=== PATIENT | female | born 1935 | race Caucasian/White ===

== ENCOUNTER 2019-04-17 08:33 | Inpatient (IN) | payer MEDICARE ==
[~2019-04-17] VITALS: Ht 160 cm; Wt 74.6 kg
[~2019-04-17 08:33] MED LIST: AMLO10TA8 PO; ASPI81TA59 PO; GLIM1TAB3 PO; HYDR-2145 PO
--- NOTE | 2019-04-17 09:13 | EKG ---
[facility] [address] [place] [address] Test Date: 2019-04-17 Test Time: 08:57:23 Pat Name: MICHEAL MCCRARY Department: Room: Gender: F Desk Monitor: : 1935 Requested By: YANET ALVAREZ Order Number: [id number] Reading MD: Measurements Intervals [place] Rate: 102 P: MT: QRS: -19 QRSD: 74 T: 71 QT: 332 QTc: 436 Interpretive Statements ATRIAL FLUTTER LEFTWARD AXIS QRS(T) CONTOUR ABNORMALITY CONSIDER ANTEROSEPTAL INFARCT CONSISTENT WITH INFERIOR INFARCT PROBABLY OLD T ABNORMALITY IN HIGH LATERAL LEADS ABNORMAL ECG No previous ECG available for comparison
[2019-04-17] MEDS ORDERED: IV NORMAL SALINE 1000ML BAG 1,000 ML IV ONE ×2 (09:15)
[2019-04-17 09:26] LABS: BILIRUBIN,URINE SMALL (NEG); CLARITY,URINE TURBID; COLOR,URINE AMBER; NITRITE,URINE NEGATIVE (NEG); PROTEIN,URINE 30 mg/dL (NEG-TRACE); UROBILINOGEN,URINE 0.2 mg/dL (0.2 mg/dL)
[2019-04-17 09:33] LABS: BASO % 0 % (0-3); EOS # 0.4 x10^3/uL (0.0-0.7); EOS % 3 % (0-3); HEMOGLOBIN 15.1 g/dL (12.0-15.5); LYMPH # 0.3 x10^3/uL (1.0-4.8); LYMPH % 2 % (24-48); MEAN CORPUSCULAR HEMOGLOBIN 31 pg (25-35); MEAN CORPUSCULAR HGB CONC 34 g/dL (31-37); MEAN CORPUSCULAR VOLUME 89 fL (79-100); MONO % 6 % (0-9); NEUT # 14.3 x10^3/uL (1.8-7.7); NEUT % 89 % (31-73); PLATELET COUNT 146 x10^3/uL (140-400); RED BLOOD COUNT 4.94 x10^6/uL (3.50-5.40); RED CELL DISTRIBUTION WIDTH 14.4 % (11.5-14.5)
[2019-04-17 09:40] LABS: BACTERIA,URINE MANY /HPF (0-FEW); SQUAMOUS EPITHELIAL CELL,UR FEW /LPF; WBC,URINE >40 /HPF (0-4)
[2019-04-17 09:43] LABS: PROTHROMBIN TIME PATIENT 14.1 SEC (11.7-14.0)
[2019-04-17] MEDS ORDERED: INSULIN REGULAR 100 UNIT/ML 3ML VIAL. IV ONE (09:45)
[2019-04-17 09:51] LABS: BASE EXCESS ABG 1 mmol/L (-3-3); HCO3 ABG 25 mmol/L (21-28); PCO2 ABG 41 mmHg (35-46); PO2 ABG 89 mmHg (65-108); SAT O2 ABG 96 % (92-99)
[2019-04-17 09:51] LABS: % BANDS 4 % (0-9); % LYMPHS 4 % (24-48); % MONOS 5 % (0-10); % SEGS 87 % (35-66)
[2019-04-17 09:52] LABS: ANISOCYTOSIS SLIGHT; PLT ESTIMATE ADEQUATE (ADEQUATE); POLYCHROMASIA SLIGHT
--- NOTE | 2019-04-17 09:52 | RAD ---
PORTABLE CHEST 1V Clinical indications: Nausea and vomiting and confusion COMPARISON: November 22, 2013. Findings: There is elevation of the right hemidiaphragm. No acute lung infiltrate or pleural effusion or pulmonary edema or lung mass or pneumothorax is seen. The heart size, pulmonary vasculature, mediastinum and both karsten are unremarkable. Impression: Elevation of the right hemidiaphragm. No acute lung infiltrate. No abnormal dilatation of small bowel loops or colon is seen within the upper abdomen. Electronically signed by: Kade Marie MD (04/17/2019 9:49 AM) [facility]
[2019-04-17 09:55] LABS: FIO2 ABG 28
[2019-04-17 10:03] LABS: ALBUMIN 2.3 g/dL (3.4-5.0); ALBUMIN/GLOBULIN RATIO 0.5 (1.0-1.7); CALCIUM 9.2 mg/dL (8.5-10.1); GFR 23.8; MAGNESIUM 2.3 mg/dL (1.8-2.4); POTASSIUM 4.1 mmol/L (3.5-5.1); TOTAL BILIRUBIN 8.1 mg/dL (0.2-1.0); TOTAL PROTEIN 6.8 g/dL (6.4-8.2)
[2019-04-17] MEDS ORDERED: cefTRIAXone IV Push 1 GM VIAL. IVP ONE (10:30)
[2019-04-17] MEDS ORDERED: VANCOMYCIN 1GM IVPB FOR OMNI 250 ML IV ONE (10:30)
--- NOTE | 2019-04-17 10:37 | PHYS DOC ---
Past Medical History Past Medical History: Diabetes-Type II, Hypertension, UTI, Other Additional Past Medical Histor: SEPSIS Past Surgical History: No Surgical History Alcohol Use: None Drug Use: None Adult General Chief Complaint Chief Complaint: NAUSEA/VOMITING/DIARRHA HPI HPI Patient is a 83 year old male patient with history of hypertension, diabetes previous episodes of sepsis and UTI who presents with complaining of nausea and vomiting and weakness. She complaining of 2- 3 episodes of vomiting daily for the last 4 days with generalized weakness . Patient denies abdominal pain, diarrhea, urinary symptoms, fever and chills, itching, chest pain and shortness of breath. Patient complaining of unable to eat or take her medication. Review of Systems Review of Systems Constitutional: Denies fever or chills [] Eyes: Denies change in visual acuity, redness, or eye pain [] HENT: Denies nasal congestion or sore throat [] Respiratory: Denies cough or shortness of breath [] Cardiovascular: No additional information not addressed in HPI [] GI: Denies abdominal pain, bloody stools or diarrhea , reports nausea and vomiting[] : Denies dysuria or hematuria [] Musculoskeletal: Denies back pain or joint pain [] Integument: Denies rash or skin lesions [] Neurologic: Denies headache, focal weakness or sensory changes [] Endocrine: Denies polyuria or polydipsia [] All other systems were reviewed and found to be within normal limits, except as documented in this note. Current Medications Current Medications Current Medications Medications (Trade) Dose Ordered Sig/Almaz Start Time Stop Time Status Last Admin Dose Admin Ceftriaxone Sodium (Rocephin) 1 gm 1X ONCE 04/17/19 10:30 04/17/19 11:04 DC 04/17/19 11:09 1 GM Insulin Human Regular (HumuLIN R VIAL) 10 unit 1X ONCE 04/17/19 09:45 04/17/19 09:46 DC 04/17/19 09:47 10 UNIT Sodium Chloride 1,000 ml @ 1,000 mls/hr 1X ONCE 04/17/19 09:15 04/17/19 10:14 DC 04/17/19 09:35 1,000 MLS/HR Vancomycin HCl 250 ml @ 250 mls/hr 1X ONCE 04/17/19 10:30 04/17/19 11:29 DC 04/17/19 11:10 250 MLS/HR Allergies Allergies Allergies Coded Allergies Type Severity Reaction Last Updated Verified Penicillins Allergy Intermediate 04/17/19 Yes Physical Exam Physical Exam Constitutional: Moderate distress, non-toxic appearance. [] HENT: Normocephalic, atraumatic, bilateral external ears normal, oropharynx dry.] Eyes: PERRLA, EOMI, conjunctiva normal, no discharge, jaundice. [] Neck: Normal range of motion, no tenderness, supple, no stridor. [] Cardiovascular:Heart rate regular rhythm, no murmur [] Lungs & Thorax: Bilateral breath sounds clear to auscultation [] Abdomen: Bowel sounds normal, soft, no tenderness, no masses, no pulsatile m asses. [] Skin: Warm, dry, no erythema, no rash. [] Back: No tenderness, no CVA tenderness. [] Extremities: No tenderness, no cyanosis, no clubbing, ROM intact, no edema. [] Neurologic: Alert and oriented X 3, normal motor function, normal sensory function, no focal deficits noted. [] Psychologic: Affect normal, mood normal. [] Current Patient Data Vital Signs Vital Signs Date Time Temp Pulse Resp B/P (MAP) Pulse Ox O2 Delivery O2 Flow Rate FiO2 04/17/19 10:24 86 145/52 (83) 99 Nasal Cannula 2.0 04/17/19 08:54 22 04/17/19 08:50 97.4 97.4 Lab Values Laboratory Tests Test 04/17/19 09:06 04/17/19 09:20 04/17/19 09:25 04/17/19 09:31 Urine Collection Type U cath Urine Color Sarah Urine Clarity Turbid Urine pH 5.0 Urine Specific [place] 1.020 Urine Protein 30 mg/dL (NEG-TRACE) Urine Glucose (UA) >=1000 mg/dL (NEG) Urine Ketones (Stick) Trace mg/dL (NEG) Urine Blood Moderate (NEG) Urine Nitrite Negative (NEG) Urine Bilirubin Small (NEG) Urine Urobilinogen Dipstick 0.2 mg/dL (0.2 mg/dL) Urine Leukocyte Esterase Large (NEG) Urine RBC 6-10 /HPF (0-2) Urine WBC >40 /HPF (0-4) Urine Squamous Epithelial Cells Few /LPF Urine Bacteria Many /HPF (0-FEW) Lactic Acid Level 2.9 mmol/L (0.4-2.0) H Phosphorus Level 3.4 mg/dL (2.6-4.7) Acetone Level Neg (NEG) White Blood Count 16.0 x10^3/uL (4.0-11.0) H Red Blood Count 4.94 x10^6/uL (3.50-5.40) Hemoglobin 15.1 g/dL (12.0-15.5) Hematocrit 44.0 % (36.0-47.0) Mean Corpuscular Volume 89 fL (79-100) Mean Corpuscular Hemoglobin 31 pg (25-35) Mean Corpuscular Hemoglobin Concent 34 g/dL (31-37) Red Cell Distribution Width 14.4 % (11.5-14.5) Platelet Count 146 x10^3/uL (140-400) Neutrophils (%) (Auto) 89 % (31-73) H Lymphocytes (%) (Auto) 2 % (24-48) L Monocytes (%) (Auto) 6 % (0-9) Eosinophils (%) (Auto) 3 % (0-3) Basophils (%) (Auto) 0 % (0-3) Neutrophils # (Auto) 14.3 x10^3/uL (1.8-7.7) H Lymphocytes # (Auto) 0.3 x10^3/uL (1.0-4.8) L Monocytes # (Auto) 1.0 x10^3/uL (0.0-1.1) Eosinophils # (Auto) 0.4 x10^3/uL (0.0-0.7) Basophils # (Auto) 0.0 x10^3/uL (0.0-0.2) Segmented Neutrophils % 87 % (35-66) H Band Neutrophils % 4 % (0-9) Lymphocytes % 4 % (24-48) L Monocytes % 5 % (0-10) Platelet Estimate Adequate (ADEQUATE) Polychromasia Slight Anisocytosis Slight Prothrombin Time 14.1 SEC (11.7-14.0) H Prothrombin Time INR 1.1 (0.8-1.1) Activated Partial Thromboplast Time 26 SEC (24-38) Sodium Level 123 mmol/L (136-145) L Potassium Level 4.1 mmol/L (3.5-5.1) Chloride Level 84 mmol/L (98-107) L Carbon Dioxide Level 25 mmol/L (21-32) Anion Gap 14 (6-14) Blood Urea Nitrogen 65 mg/dL (7-20) H Creatinine 2.0 mg/dL (0.6-1.0) H Estimated GFR (Cockcroft-Gault) 23.8 BUN/Creatinine Ratio 33 (6-20) H Glucose Level 538 mg/dL (70-99) *H Calcium Level 9.2 mg/dL (8.5-10.1) Magnesium Level 2.3 mg/dL (1.8-2.4) Total Bilirubin 8.1 mg/dL (0.2-1.0) H Aspartate Amino Transferase (AST) 51 U/L (15-37) H Alanine Aminotransferase (ALT) 126 U/L (14-59) H Alkaline Phosphatase 290 U/L (46-116) H Creatine Kinase 43 U/L (26-192) Troponin I Quantitative < 0.017 ng/mL (0.000-0.055) UL-Pfd-Z-Type Natriuretic Peptide 1881 pg/mL (0-449) H Total Protein 6.8 g/dL (6.4-8.2) Albumin 2.3 g/dL (3.4-5.0) L Albumin/Globulin Ratio 0.5 (1.0-1.7) L Lipase 96 U/L (73-393) Glucose (Fingerstick) 534 mg/dL (70-99) *H Test 04/17/19 09:34 O2 Saturation 96 % (92-99) Arterial Blood pH 7.41 (7.35-7.45) Arterial Blood pCO2 at Patient Temp 41 mmHg (35-46) Arterial Blood pO2 at Patient Temp 89 mmHg (65-108) Arterial Blood HCO3 25 mmol/L (21-28) Arterial Blood Base Excess 1 mmol/L (-3-3) FiO2 28 Laboratory Tests 04/17/19 09:25 Laboratory Tests 04/17/19 09:25 EKG EKG EKG interpreted by me. EKG at 0857 showed atrial flutter at rate of 102, PVCs, poor R-wave progress in anteroseptal leads, no acute ST and T-wave elevation. Radiology/Procedures Radiology/Procedures [][facility] [address] [place] [address] IMAGING REPORT Signed PATIENT: MICHEAL MCCRARY ACCOUNT: [id number] : 1935 LOCATION: ER AGE: 83 SEX: F EXAM STATUS: REG ER ORD. PHYSICIAN: YANET ALVAREZ MD REASON: nausea and vomiting and confusion PROCEDURE: PORTABLE CHEST 1V PORTABLE CHEST 1V Clinical indications: Nausea and vomiting and confusion COMPARISON: November 22, 2013. Findings: There is elevation of the right hemidiaphragm. No acute lung infiltrate or pleural effusion or pulmonary edema or lung mass or pneumothorax is seen. The heart size, pulmonary vasculature, mediastinum and both karsten are unremarkable. Impression: Elevation of the right hemidiaphragm. No acute lung infiltrate. No abnormal dilatation of small bowel loops or colon is seen within the upper abdomen. Electronically signed by: Danuta Marie MD (04/17/2019 9:49 AM) [facility] DICTATED and SIGNED BY: DANUTA MARIE MD DATE: 04/17/19 0949 [facility] [address] [place] [address] IMAGING REPORT Signed PATIENT: MICHEAL MCCRARY ACCOUNT: [id number] : 1935 LOCATION: ER AGE: 83 SEX: F EXAM STATUS: REG ER ORD. PHYSICIAN: YANET ALVAREZ MD REASON: jaundice PROCEDURE: CT ABDOMEN PELVIS WO CONTRAST CT STUDY OF THE ABDOMEN AND PELVIS WITHOUT CONTRAST CLINICAL INDICATIONS: Nausea and vomiting and diarrhea for 5 days. Jaundice. TECHNIQUE: Noncontrast helical CT scanning of the abdomen and pelvis was performed. Without contrast, the sensitivity to detect organ pathology and GI tract pathology is decreased. PQRS compliance Statement One or more of the following individualized dose reduction techniques were utilized for this study: 1. Automated exposure control 2. Adjustment of the mA and/or kV according to patient size 3. Use of iterative reconstruction technique COMPARISON: None available. FINDINGS: The liver and spleen are not abnormally enlarged. There is a subcentimeter indeterminate hypodense nodule within the dome of the right lobe liver best seen on coronal series #4 and image 42. No peripancreatic inflammation or free fluid or pseudocyst is evident. Without contrast, the evaluation of the pancreatic parenchyma is difficult. There is focal enlargement of the anterior aspect of the neck of the pancreas. There is no dilatation of the extra hepatic biliary duct. The gallbladder is mildly distended measuring 8 cm. There is mild increase in the fat around the gallbladder. This could represent pericholecystic inflammation. No gallbladder wall thickening is evident. No adrenal mass is evident. No hydronephrosis or hydroureter or urinary tract stone is evident. No renal mass is seen on either side on this noncontrast study. No focal aneurysmal dilatation of the abdominal aorta is seen. No enlarged abdominal or pelvic lymphadenopathy is evident. Urinary bladder wall is smooth. There is a small bubble of air within the urinary bladder. No uterine mass is evident. No dominant ovarian cyst or mass is evident. The terminal ileum and appendix are normal. No obstructive bowel pattern is evident. No bowel wall thickening is seen. Sigmoid diverticula are seen without pericolonic inflammation. No free air or free fluid or mesenteric edema is evident. Bibasilar groundglass lung infiltrates are seen. Heart size is enlarged. There is a mild compression fracture of L5. Transitional vertebrae is evident below the L5 level. No lytic process is seen. IMPRESSION: There is focal enlargement of the neck of the pancreas. This area is ill-defined lung this noncontrast study. It measures approximately 23 mm in AP dimension and 22 mm in transverse dimension. This could represent a small pancreatic neoplasm or focal pancreatic inflammation secondary to pancreatitis. No extra hepatic biliary ductal dilatation is seen. Mild distention of the gallbladder. Mild pericholecystic inflammation. Recommend right upper quadrant abdomen ultrasound study. Bibasilar groundglass lung infiltrates which may be due to pulmonary edema or atelectasis. Mild cardiomegaly. In addition, there is focal consolidation of the medial posterior aspect of the right lower lobe. There is associated pleural thickening here. Lung infiltrate such as pneumonia is certainly possible. Mild L5 compression fracture of indeterminate age. Indeterminate subcentimeter liver nodule. Sigmoid diverticulosis without diverticulitis. Small bubble of air seen within the urinary bladder which most likely is due to the short female urethra or recent catheterization. No urinary bladder wall thickening. Electronically signed by: Danuta Marie MD (04/17/2019 11:37 AM) [facility] DICTATED and SIGNED BY: DANUTA MARIE MD DATE: 04/17/19 1136 Course & Med Decision Making Course & Med Decision Making Pertinent Labs and Imaging studies reviewed. (See chart for details) Initial patient in ER showed a test 83-year-old male patient brought in by family members because of nausea and vomiting and generalized weakness. Patient had blood sugar of more than 500 with dry oral mucosa and treated with IV fluids and insulin bolus and drip. Patient had elevation of lactic acid and treated for sepsis protocol. Patient had her insufficiency and elevated liver function tests with bilirubin of [address] of abdomen showed abnormal pancreas area. Patient and family informed about test results and needs for admission. Patient requiring admission for further evaluation and treatment. Discussed with Dr. Fontenot (per request of primary care physician family member) who is in agreement with admission. Discussed findings and plan with patient and family, who acknowledge understanding and agreement. Dragon Disclaimer Dragon Disclaimer This electronic medical record was generated, in whole or in part, using a voice recognition dictation system. Departure Departure Impression: Primary Impression: Sepsis Additional Impressions: Urinary tract infection Hyperglycemia Uncontrolled diabetes mellitus Jaundice Renal insufficiency Elevated liver function tests Nausea and vomiting Hypoalbuminemia Abnormal CT of the abdomen Atrial fibrillation Disposition: ADMITTED INPATIENT Admitting Physician: Alex Fontenot Condition: GUARDED Referrals: ELIANE CHOPRA MD (PCP) Critical Care Time Critical care time was 70 minutes exclusive of procedures. Date and Time of Reassessment Date: Apr 17, 2019 Time: 10:00 Fluid Challenge Is the fluid challenge complet: No IBW Target Volume Used: No BMI > 30: No Vital Signs Vital Signs: Vital Signs Date Time Temp Pulse Resp B/P (MAP) Pulse Ox O2 Delivery O2 Flow Rate FiO2 04/17/19 10:24 86 145/52 (83) 99 Nasal Cannula 2.0 04/17/19 08:54 22 04/17/19 08:50 97.4 97.4 Temperature Source: Oral Respirations Respiratory Effort: Normal, Non-Labored Respiratory Pattern: Normal Cardiovascular Pulse Rhythm: Regular Heart: Nml S1, S2, no murmurs, No rubs, clicks or gallop Lung Sounds Breath Sounds: Clear Capillary Refil Capillary Refill: Rt Hand < 3 seconds Peripheral Pulse Pulse Location: Radial Pulse Strength: Normal (2+) Pulse Assessment Method: NIBP Problem Qualifiers Primary Impression: Sepsis Sepsis type: sepsis due to unspecified organism Sepsis acute organ dysfunction status: unspecified Qualified Codes: A41.9 - Sepsis, unspecified organism Additional Impressions: Urinary tract infection Urinary tract infection type: site unspecified Hematuria presence: without hematuria Qualified Codes: N39.0 - Urinary tract infection, site not specified Uncontrolled diabetes mellitus Diabetes mellitus type: other specified (including NICOLE) Glycemic state: with hyperglycemia Qualified Codes: E13.65 - Other specified diabetes mellitus with hyperglycemia Nausea and vomiting Vomiting type: unspecified Vomiting Intractability: non-intractable Qualified Codes: R11.2 - Nausea with vomiting, unspecified Atrial fibrillation Atrial fibrillation type: unspecified Qualified Codes: I48.91 - Unspecified atrial fibrillation YANET ALVAREZ MD Apr 17, 2019 10:37
[2019-04-17] MEDS ORDERED: ONDANSETRON PF 4 MG/2 ML VIAL. IV PRN (11:30)
[2019-04-17] MEDS: IV NORMAL SALINE 1000ML BAG 1,000 ML IV SCH (11:36)
--- NOTE | 2019-04-17 11:39 | RAD ---
CT STUDY OF THE ABDOMEN AND PELVIS WITHOUT CONTRAST CLINICAL INDICATIONS: Nausea and vomiting and diarrhea for 5 days. Jaundice. TECHNIQUE: Noncontrast helical CT scanning of the abdomen and pelvis was performed. Without contrast, the sensitivity to detect organ pathology and GI tract pathology is decreased. PQRS compliance Statement One or more of the following individualized dose reduction techniques were utilized for this study: 1. Automated exposure control 2. Adjustment of the mA and/or kV according to patient size 3. Use of iterative reconstruction technique COMPARISON: None available. FINDINGS: The liver and spleen are not abnormally enlarged. There is a subcentimeter indeterminate hypodense nodule within the dome of the right lobe liver best seen on coronal series #4 and image 42. No peripancreatic inflammation or free fluid or pseudocyst is evident. Without contrast, the evaluation of the pancreatic parenchyma is difficult. There is focal enlargement of the anterior aspect of the neck of the pancreas. There is no dilatation of the extra hepatic biliary duct. The gallbladder is mildly distended measuring 8 cm. There is mild increase in the fat around the gallbladder. This could represent pericholecystic inflammation. No gallbladder wall thickening is evident. No adrenal mass is evident. No hydronephrosis or hydroureter or urinary tract stone is evident. No renal mass is seen on either side on this noncontrast study. No focal aneurysmal dilatation of the abdominal aorta is seen. No enlarged abdominal or pelvic lymphadenopathy is evident. Urinary bladder wall is smooth. There is a small bubble of air within the urinary bladder. No uterine mass is evident. No dominant ovarian cyst or mass is evident. The terminal ileum and appendix are normal. No obstructive bowel pattern is evident. No bowel wall thickening is seen. Sigmoid diverticula are seen without pericolonic inflammation. No free air or free fluid or mesenteric edema is evident. Bibasilar groundglass lung infiltrates are seen. Heart size is enlarged. There is a mild compression fracture of L5. Transitional vertebrae is evident below the L5 level. No lytic process is seen. IMPRESSION: There is focal enlargement of the neck of the pancreas. This area is ill-defined lung this noncontrast study. It measures approximately 23 mm in AP dimension and 22 mm in transverse dimension. This could represent a small pancreatic neoplasm or focal pancreatic inflammation secondary to pancreatitis. No extra hepatic biliary ductal dilatation is seen. Mild distention of the gallbladder. Mild pericholecystic inflammation. Recommend right upper quadrant abdomen ultrasound study. Bibasilar groundglass lung infiltrates which may be due to pulmonary edema or atelectasis. Mild cardiomegaly. In addition, there is focal consolidation of the medial posterior aspect of the right lower lobe. There is associated pleural thickening here. Lung infiltrate such as pneumonia is certainly possible. Mild L5 compression fracture of indeterminate age. Indeterminate subcentimeter liver nodule. Sigmoid diverticulosis without diverticulitis. Small bubble of air seen within the urinary bladder which most likely is due to the short female urethra or recent catheterization. No urinary bladder wall thickening. Electronically signed by: Kade Marie MD (04/17/2019 11:37 AM) [facility]
[2019-04-17 12:30] VITALS: BP 153/64
--- NOTE | 2019-04-17 13:04 | NUR ---
The patient, MICHEAL MCCRARY, 83 y/o, F admitted by VOLODYMYR HESS MD, was given written information regarding hospital policies, unit procedures and contact persons. Son at bedside at time of admit, pt stable. Physician contacted for further orders. Awaiting return call.
[2019-04-17] MEDS ORDERED: DEXTROSE 50% 25 GM / 50ML DISP.SYRIN. IV PRN (13:15)
[2019-04-17 15:00] VITALS: BP 139/61
--- NOTE | 2019-04-17 15:07 | NUR ---
Wound Care: Wound consult for buttocks PU. Stage 1 PU on buttocks/coccyx, cleansed and measured, Calazime cream applied. [id number] order for pt. No other wounds noted on skin assessment. SOPHIE Romero notified of POC. Wound care will follow up on 04/24.
--- NOTE | 2019-04-17 15:46 | PDOC2 ---
GI CONSULT Reason For Consult: Black tarry emesis HPI: HPI: 83 y/o female who has been ill w/ vomiting for a few days. Denies precipitating events, "just sick." D/w nurse - family found this morning w/ "black" emesis all over - similar symptoms w/ past sepsis/UTI. She's unaware of color of emesis. Labs notable for WBC 16, normal Hgb, glucose 543, bili 8.1, AST 51, ALT 126, Alk Phos 296, BUN 65, Cr 2, BNP 1881, and possible UTI. GI-[place] on CT report: focal enlargement of the neck of the pancreas, no extra hepatic biliary ductal dilatation is seen, mild distention of the gallbladder w/ mild pericholecystic inflammation, indeterminate subcentimeter liver nodule, and sigmoid diverticulosis. Denies GERD, dysphagia, chronic n/v, abd pain, diarrhea, constipation, weight loss, hematochezia, or melena. No previous EGD or colonoscopy. Denies liver, pancreas, GB, and PUD history. ASA PRN. PMH: PMH: dementia, HTN, DM, UTI/sepsis FH: Family History: No pertinent hx Social History: Smoke: No ALCOHOL: none Drugs: None ROS: GEN: Denies fevers, chills, sweats HEENT: Denies blurred vision, sore throat CV: Denies chest pain RESP: Denies shortness of air, cough GI: Per HPI : Denies hematuria, dysuria ENDO: Denies weight changes NEURO: Denies confusion, dizziness MSK: Denies weakness, joint pain/swelling SKIN: Denies jaundice, pruritus Vitals: Vitals: Vital Signs Date Time Temp Pulse Resp B/P (MAP) Pulse Ox O2 Delivery O2 Flow Rate FiO2 04/17/19 14:02 Nasal Cannula 2.0 04/17/19 12:23 86 19 106/55 (72) 97 04/17/19 08:50 97.4 97.4 Labs: Labs: Laboratory Tests Test 04/17/19 09:06 04/17/19 09:20 04/17/19 09:25 04/17/19 09:31 Urine Collection Type U cath Urine Color Sarah Urine Clarity Turbid Urine pH 5.0 Urine Specific [place] 1.020 Urine Protein 30 mg/dL (NEG-TRACE) Urine Glucose (UA) >=1000 mg/dL (NEG) Urine Ketones (Stick) Trace mg/dL (NEG) Urine Blood Moderate (NEG) Urine Nitrite Negative (NEG) Urine Bilirubin Small (NEG) Urine Urobilinogen Dipstick 0.2 mg/dL (0.2 mg/dL) Urine Leukocyte Esterase Large (NEG) Urine RBC 6-10 /HPF (0-2) Urine WBC >40 /HPF (0-4) Urine Squamous Epithelial Cells Few /LPF Urine Bacteria Many /HPF (0-FEW) Lactic Acid Level 2.9 mmol/L (0.4-2.0) Phosphorus Level 3.4 mg/dL (2.6-4.7) Acetone Level Neg (NEG) White Blood Count 16.0 x10^3/uL (4.0-11.0) Red Blood Count 4.94 x10^6/uL (3.50-5.40) Hemoglobin 15.1 g/dL (12.0-15.5) Hematocrit 44.0 % (36.0-47.0) Mean Corpuscular Volume 89 fL (79-100) Mean Corpuscular Hemoglobin 31 pg (25-35) Mean Corpuscular Hemoglobin Concent 34 g/dL (31-37) Red Cell Distribution Width 14.4 % (11.5-14.5) Platelet Count 146 x10^3/uL (140-400) Neutrophils (%) (Auto) 89 % (31-73) Lymphocytes (%) (Auto) 2 % (24-48) Monocytes (%) (Auto) 6 % (0-9) Eosinophils (%) (Auto) 3 % (0-3) Basophils (%) (Auto) 0 % (0-3) Neutrophils # (Auto) 14.3 x10^3/uL (1.8-7.7) Lymphocytes # (Auto) 0.3 x10^3/uL (1.0-4.8) Monocytes # (Auto) 1.0 x10^3/uL (0.0-1.1) Eosinophils # (Auto) 0.4 x10^3/uL (0.0-0.7) Basophils # (Auto) 0.0 x10^3/uL (0.0-0.2) Segmented Neutrophils % 87 % (35-66) Band Neutrophils % 4 % (0-9) Lymphocytes % 4 % (24-48) Monocytes % 5 % (0-10) Platelet Estimate Adequate (ADEQUATE) Polychromasia Slight Anisocytosis Slight Prothrombin Time 14.1 SEC (11.7-14.0) Prothromb Time International Ratio 1.1 (0.8-1.1) Activated Partial Thromboplast Time 26 SEC (24-38) Sodium Level 123 mmol/L (136-145) Potassium Level 4.1 mmol/L (3.5-5.1) Chloride Level 84 mmol/L (98-107) Carbon Dioxide Level 25 mmol/L (21-32) Anion Gap 14 (6-14) Blood Urea Nitrogen 65 mg/dL (7-20) Creatinine 2.0 mg/dL (0.6-1.0) Estimated GFR (Cockcroft-Gault) 23.8 BUN/Creatinine Ratio 33 (6-20) Glucose Level 538 mg/dL (70-99) Calcium Level 9.2 mg/dL (8.5-10.1) Magnesium Level 2.3 mg/dL (1.8-2.4) Total Bilirubin 8.1 mg/dL (0.2-1.0) Aspartate Amino Transf (AST/SGOT) 51 U/L (15-37) Alanine Aminotransferase (ALT/SGPT) 126 U/L (14-59) Alkaline Phosphatase 290 U/L (46-116) Creatine Kinase 43 U/L (26-192) Troponin I Quantitative < 0.017 ng/mL (0.000-0.055) KS-Swf-U-Type Natriuretic Peptide 1881 pg/mL (0-449) Total Protein 6.8 g/dL (6.4-8.2) Albumin 2.3 g/dL (3.4-5.0) Albumin/Globulin Ratio 0.5 (1.0-1.7) Lipase 96 U/L (73-393) Glucose (Fingerstick) 534 mg/dL (70-99) Test 04/17/19 09:34 04/17/19 10:56 04/17/19 12:45 O2 Saturation 96 % (92-99) Arterial Blood pH 7.41 (7.35-7.45) Arterial Blood pCO2 at Patient Temp 41 mmHg (35-46) Arterial Blood pO2 at Patient Temp 89 mmHg (65-108) Arterial Blood HCO3 25 mmol/L (21-28) Arterial Blood Base Excess 1 mmol/L (-3-3) FiO2 28 Glucose (Fingerstick) 381 mg/dL (70-99) Lactic Acid Level 1.5 mmol/L (0.4-2.0) Ammonia < 10 mcmol/L (11-34) Allergies: Coded Allergies: Penicillins (Verified Allergy, Intermediate, 04/17/19) Medications: Current Medications Medications (Trade) Dose Ordered Sig/Almaz Route PRN Reason Start Time Stop Time Status Last Admin Dose Admin Sodium Chloride 1,000 ml @ 1,000 mls/hr 1X ONCE IV 04/17/19 09:15 04/17/19 10:14 DC 04/17/19 09:35 Sodium Chloride 1,000 ml @ 1,000 mls/hr 1X ONCE IV 04/17/19 09:15 04/17/19 10:14 DC 04/17/19 09:35 Insulin Human Regular (HumuLIN R VIAL) 10 unit 1X ONCE IV 04/17/19 09:45 04/17/19 09:46 DC 04/17/19 09:47 Ceftriaxone Sodium (Rocephin) 1 gm 1X ONCE IVP 04/17/19 10:30 04/17/19 11:04 DC 04/17/19 11:09 Vancomycin HCl 250 ml @ 250 mls/hr 1X ONCE IV 04/17/19 10:30 04/17/19 11:29 DC 04/17/19 11:10 Sodium Chloride 1,000 ml @ 150 mls/hr Q6H40M IV 04/17/19 11:27 04/18/19 11:26 04/17/19 11:36 Imaging: Imaging: CXR Impression: Elevation of the right hemidiaphragm. No acute lung infiltrate. No abnormal dilatation of small bowel loops or colon is seen within the upper abdomen. CT A/P IMPRESSION: There is focal enlargement of the neck of the pancreas. This area is ill-defined lung this noncontrast study. It measures approximately 23 mm in AP dimension and 22 mm in transverse dimension. This could represent a small pancreatic neoplasm or focal pancreatic inflammation secondary to pancreatitis. No extra hepatic biliary ductal dilatation is seen. Mild distention of the gallbladder. Mild pericholecystic inflammation. Recommend right upper quadrant abdomen ultrasound study. Bibasilar groundglass lung infiltrates which may be due to pulmonary edema or atelectasis. Mild cardiomegaly. In addition, there is focal consolidation of the medial posterior aspect of the right lower lobe. There is associated pleural thickening here. Lung infiltrate such as pneumonia is certainly possible. Mild L5 compression fracture of indeterminate age. Indeterminate subcentimeter liver nodule. Sigmoid diverticulosis without diverticulitis. Small bubble of air seen within the urinary bladder which most likely is due to the short female urethra or recent catheterization. No urinary bladder wall thickening. PE: GEN: NAD HEENT: Atraumatic, PERRL LUNGS: NC 2L HEART: RRR ABD: NABS, S/ND/NT EXTREMITY: No edema SKIN: +jaundice NEURO/PSYCH: A & O 3 A/P: A/P: Vomiting/"coffee-ground emesis" Leukocytosis, hyperglycemia, abnormal LFTs, ?RYAN/CKD, elevated BNP, possible UTI Abnormal CT - focal enlargement of the neck of the pancreas, mild distention of the gallbladder w/ mild pericholecystic inflammation, indeterminate subcentimeter liver nodule CRC screen - denies Diverticulosis H/o dementia -- Monitor as far as vomiting goes, will add PPI. Will discuss NPO vs trial of clears w/ Dr. Astorga. Check RUQ US re: CT findings. Monitor LFTs. JENNIFER DORANTES Apr 17, 2019 15:46
[2019-04-17] MEDS ORDERED: LISI10TA2 PO (17:31)
[2019-04-17] MEDS: INSULIN LISPRO 300 UNITS/3 ML VIAL. SQ SCH (17:36)
[2019-04-17 19:01] VITALS: BP 148/63
--- NOTE | 2019-04-17 20:37 | RAD ---
ABDOMEN LTD History: Elevated LFTs. Liver nodule. Distended gallbladder. Comparison: CT April 17, 2019.. Technique: Transabdominal ultrasound images are obtained of the right upper quadrant. Findings: Visualized pancreas is is not well seen due to overlying bowel gas. Difficult evaluation of the liver due to bowel gas and patient's inability to hold breath and decreased motion. Previously described subcentimeter liver lesion is not well characterized on ultrasound. The liver measures 14 cm. No gallbladder wall thickening measures 3 mm. No cholelithiasis. Mildly distended gallbladder. Common bile duct measures 2.1 mm in diameter. The right kidney measures 10.1 x 4.9 x 5.7 cm in length. No hydronephrosis. Right renal cyst measures 1.7 x 1.8 x 1.9 cm. Aorta and IVC not well seen due to overlying bowel gas. IMPRESSION: 1. Mildly distended gallbladder. No significant gallbladder wall thickening. Persistent clinical concern for right upper quadrant pain HIDA scan can further evaluate gallbladder function. 2. Degraded evaluation of the liver and pancreas, as described. Electronically signed by: Angel Yip DO (04/17/2019 8:34 PM) [facility]
[2019-04-17 22:36] VITALS: BP 91/53
--- NOTE | 2019-04-17 23:03 | CONS ---
DATE OF CONSULTATION: 04/17/2019 REFERRING PHYSICIAN: Dr. Welch REASON FOR CONSULTATION: UTI. HISTORY OF PRESENT ILLNESS: An 83-year-old female with history of diabetes type 2, who has not been taking her medications for the last couple of months, hypertension, history of UTI with bloodstream infection a year ago at which time she was admitted to [facility], none since, presented to the ER this a.m. with complaints of nausea, vomiting, diarrhea, abdominal pain, low appetite, generalized weakness, which started last Sunday. The patient has been in her normal health, though has not been very active at home. She does have some abdominal pain, which radiates to the back. She has vomiting with coffee ground emesis Pt is not a good historian. Son at bedside provided most of the information. She was brought to the ER by her son as she was not improving at home. In the ER, her temperature was 97.4, white count was 16,000, hemoglobin of 15.1, platelets of 146, bands of 4, creatinine was elevated at 2.0, CK of 43, proBNP of 1881, lipase of 96, glucose was high at 534. UA showed pyuria, glycosuria. Sodium of 123, AST 51, ALT 126, alkaline phosphatase 290, total bili 8.1, calcium 9.2, INR of 1.1. Chest x-ray showed elevation of the right hemidiaphragm, no acute lung infiltrate. No abnormal dilatation of the small bowel loops or colon is seen within the upper abdomen. CT abdomen and chest showed focal enlargement of the neck of the pancreas; this area is ill-defined with a noncontrast study. It measures approximately 23 mm in AP dimension and 22 mm in transverse dimension. This could represent a small pancreatic neoplasm or focal pancreatic inflammation secondary to pancreatitis. No extrahepatic biliary ductal dilatation is seen. Mild distention of the gallbladder, mild pericholecystic inflammation. Recommend upper quadrant abdomen ultrasound study, bibasilar ground-glass infiltrates, which could be due to pulmonary edema or atelectasis, mild cardiomegaly. In addition, there is focal consolidation of the medial, posterior aspect of the right lower lobe. There is associated pleural thickening here lung infiltrate such as pneumonia is certainly possible, mild L5 compression fracture of indeterminate age, indeterminate subcentimeter liver nodule, sigmoid diverticulosis without diverticulitis, small bubble of air seen within the urinary bladder, which is most likely due to short female urethral recent catheterization. No urinary bladder wall thickening. Micro, blood culture and urine culture done. 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 Leukocytosis. 2. Pyuria. The patient does not have any urinary symptoms. 3. Abnormal LFTs with Abnormal CT focal enlargement of the neck of the pancreas, mild distention of the gallbladder w/ mild pericholecystic inflammation, indeterminate subcentimeter liver nodule 4. Acute kidney injury. 5. Hyponatremia. 6. Nausea, vomiting, coffee ground emesis, diarrhea 7. Uncontrolled diabetes mellitus.Off medications 8. Pulmonary infiltrate, 9.. High proBNP. 10. Protein-calorie malnutrition. 11. Lactic acidosis. 12. PENICILLIN ALLERGY WITH NAUSEA, VOMITING. Does not recall taking Augmentin or amoxicillin. 13. H/O Dementia RECOMMENDATIONS: 1. Discontinue IV vancomycin and ceftriaxone. 2. Start the patient on empiric cefepime. 3. Follow up blood culture and urine culture. 4. GI is consulted. 5. Follow up labs and cultures. 6. Continue supportive care. 7. Maintain aspiration precaution. 8. Continue supportive care. 9. Discussed with son at bedside. 10. Discussed with nursing staff. Thank you, Dr. Fontenot for consulting Infectious Disease to participate in this patient's care. We will follow along with you. If you have any questions, do not hesitate to contact. AGUILAR TERRY MD DR: ABRIL/crystal JOB#: [id number] / [id number] MARCIA
[2019-04-18] MEDS: IV NORMAL SALINE 1000ML BAG 1,000 ML IV SCH ×3 (01:26→14:33)
[2019-04-18 03:27] VITALS: BP 128/60
[2019-04-18 04:32] LABS: ALBUMIN 1.6 g/dL (3.4-5.0); ALBUMIN/GLOBULIN RATIO 0.4 (1.0-1.7); CALCIUM 8.1 mg/dL (8.5-10.1); CREATININE 1.5 mg/dL (0.6-1.0); GFR 33.2; POTASSIUM 3.6 mmol/L (3.5-5.1); TOTAL BILIRUBIN 7.2 mg/dL (0.2-1.0); TOTAL PROTEIN 5.3 g/dL (6.4-8.2)
[2019-04-18 07:07] VITALS: BP 153/66
[2019-04-18] MEDS ORDERED: PANTOPRAZOLE IV PUSH 40 MG VIAL. IVP SCH (07:30)
[2019-04-18 07:56] LABS: HEMATOCRIT 39.5 % (36.0-47.0); HEMOGLOBIN 13.4 g/dL (12.0-15.5); RED BLOOD COUNT 4.43 x10^6/uL (3.50-5.40); RED CELL DISTRIBUTION WIDTH 14.9 % (11.5-14.5); WHITE BLOOD COUNT 9.9 x10^3/uL (4.0-11.0)
--- NOTE | 2019-04-18 08:55 | PDOC ---
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 no gen rash Medications: Inpatient Meds: Current Medications Medications (Trade) Dose Ordered Sig/Almaz Start Time Stop Time Status Last Admin Dose Admin Acetaminophen (Tylenol) 650 mg PRN Q6HRS PRN 04/17/19 13:15 Cefepime HCl (Maxipime) 1 gm DAILY 04/18/19 09:00 Ceftriaxone Sodium (Rocephin) 1 gm 1X ONCE 04/17/19 10:30 04/17/19 11:04 DC 04/17/19 11:09 1 GM Dextrose (Dextrose 50%-Water Syringe) 12.5 gm PRN Q15MIN PRN 04/17/19 13:15 Insulin Human Lispro (HumaLOG) 0-7 UNITS TIDWMEALS 04/17/19 17:00 04/17/19 17:36 4 UNITS Insulin Human Regular (HumuLIN R VIAL) 10 unit 1X ONCE 04/17/19 09:45 04/17/19 09:46 DC 04/17/19 09:47 10 UNIT Ondansetron HCl (Zofran) 4 mg PRN Q8HRS PRN 04/17/19 11:30 04/17/19 18:00 DC Pantoprazole Sodium (PROTONIX VIAL for IV PUSH) 40 mg DAILYAC 04/18/19 07:30 Sodium Chloride 1,000 ml @ 150 mls/hr Q6H40M 04/17/19 11:27 04/18/19 11:26 04/18/19 01:26 150 MLS/HR Vancomycin HCl 250 ml @ 250 mls/hr 1X ONCE 04/17/19 10:30 04/17/19 11:29 DC 04/17/19 11:10 250 MLS/HR Labs: Lab Laboratory Tests Test 04/17/19 09:06 04/17/19 09:20 04/17/19 09:25 04/17/19 09:31 Urine Collection Type U cath Urine Color Sarah Urine Clarity Turbid Urine pH 5.0 Urine Specific [place] 1.020 Urine Protein 30 mg/dL (NEG-TRACE) Urine Glucose (UA) >=1000 mg/dL (NEG) Urine Ketones (Stick) Trace mg/dL (NEG) Urine Blood Moderate (NEG) Urine Nitrite Negative (NEG) Urine Bilirubin Small (NEG) Urine Urobilinogen Dipstick 0.2 mg/dL (0.2 mg/dL) Urine Leukocyte Esterase Large (NEG) Urine RBC 6-10 /HPF (0-2) Urine WBC >40 /HPF (0-4) Urine Squamous Epithelial Cells Few /LPF Urine Bacteria Many /HPF (0-FEW) Lactic Acid Level 2.9 mmol/L (0.4-2.0) Phosphorus Level 3.4 mg/dL (2.6-4.7) Acetone Level Neg (NEG) White Blood Count 16.0 x10^3/uL (4.0-11.0) Red Blood Count 4.94 x10^6/uL (3.50-5.40) Hemoglobin 15.1 g/dL (12.0-15.5) Hematocrit 44.0 % (36.0-47.0) Mean Corpuscular Volume 89 fL (79-100) Mean Corpuscular Hemoglobin 31 pg (25-35) Mean Corpuscular Hemoglobin Concent 34 g/dL (31-37) Red Cell Distribution Width 14.4 % (11.5-14.5) Platelet Count 146 x10^3/uL (140-400) Neutrophils (%) (Auto) 89 % (31-73) Lymphocytes (%) (Auto) 2 % (24-48) Monocytes (%) (Auto) 6 % (0-9) Eosinophils (%) (Auto) 3 % (0-3) Basophils (%) (Auto) 0 % (0-3) Neutrophils # (Auto) 14.3 x10^3/uL (1.8-7.7) Lymphocytes # (Auto) 0.3 x10^3/uL (1.0-4.8) Monocytes # (Auto) 1.0 x10^3/uL (0.0-1.1) Eosinophils # (Auto) 0.4 x10^3/uL (0.0-0.7) Basophils # (Auto) 0.0 x10^3/uL (0.0-0.2) Segmented Neutrophils % 87 % (35-66) Band Neutrophils % 4 % (0-9) Lymphocytes % 4 % (24-48) Monocytes % 5 % (0-10) Platelet Estimate Adequate (ADEQUATE) Polychromasia Slight Anisocytosis Slight Prothrombin Time 14.1 SEC (11.7-14.0) Prothromb Time International Ratio 1.1 (0.8-1.1) Activated Partial Thromboplast Time 26 SEC (24-38) Sodium Level 123 mmol/L (136-145) Potassium Level 4.1 mmol/L (3.5-5.1) Chloride Level 84 mmol/L (98-107) Carbon Dioxide Level 25 mmol/L (21-32) Anion Gap 14 (6-14) Blood Urea Nitrogen 65 mg/dL (7-20) Creatinine 2.0 mg/dL (0.6-1.0) Estimated GFR (Cockcroft-Gault) 23.8 BUN/Creatinine Ratio 33 (6-20) Glucose Level 538 mg/dL (70-99) Calcium Level 9.2 mg/dL (8.5-10.1) Magnesium Level 2.3 mg/dL (1.8-2.4) Total Bilirubin 8.1 mg/dL (0.2-1.0) Aspartate Amino Transf (AST/SGOT) 51 U/L (15-37) Alanine Aminotransferase (ALT/SGPT) 126 U/L (14-59) Alkaline Phosphatase 290 U/L (46-116) Creatine Kinase 43 U/L (26-192) Troponin I Quantitative < 0.017 ng/mL (0.000-0.055) CD-Rin-P-Type Natriuretic Peptide 1881 pg/mL (0-449) Total Protein 6.8 g/dL (6.4-8.2) Albumin 2.3 g/dL (3.4-5.0) Albumin/Globulin Ratio 0.5 (1.0-1.7) Lipase 96 U/L (73-393) Glucose (Fingerstick) 534 mg/dL (70-99) Test 04/17/19 09:34 04/17/19 10:56 04/17/19 12:45 04/17/19 16:50 O2 Saturation 96 % (92-99) Arterial Blood pH 7.41 (7.35-7.45) Arterial Blood pCO2 at Patient Temp 41 mmHg (35-46) Arterial Blood pO2 at Patient Temp 89 mmHg (65-108) Arterial Blood HCO3 25 mmol/L (21-28) Arterial Blood Base Excess 1 mmol/L (-3-3) FiO2 28 Glucose (Fingerstick) 381 mg/dL (70-99) 253 mg/dL (70-99) Lactic Acid Level 1.5 mmol/L (0.4-2.0) Ammonia < 10 mcmol/L (11-34) Test 04/17/19 21:06 04/17/19 23:33 04/18/19 03:30 04/18/19 07:11 Glucose (Fingerstick) 217 mg/dL (70-99) 256 mg/dL (70-99) 242 mg/dL (70-99) Sodium Level 131 mmol/L (136-145) Potassium Level 3.6 mmol/L (3.5-5.1) Chloride Level 99 mmol/L (98-107) Carbon Dioxide Level 22 mmol/L (21-32) Anion Gap 10 (6-14) Blood Urea Nitrogen 61 mg/dL (7-20) Creatinine 1.5 mg/dL (0.6-1.0) Estimated GFR (Cockcroft-Gault) 33.2 BUN/Creatinine Ratio 41 (6-20) Glucose Level 288 mg/dL (70-99) Calcium Level 8.1 mg/dL (8.5-10.1) Total Bilirubin 7.2 mg/dL (0.2-1.0) Aspartate Amino Transf (AST/SGOT) 38 U/L (15-37) Alanine Aminotransferase (ALT/SGPT) 67 U/L (14-59) Alkaline Phosphatase 257 U/L (46-116) Total Protein 5.3 g/dL (6.4-8.2) Albumin 1.6 g/dL (3.4-5.0) Albumin/Globulin Ratio 0.4 (1.0-1.7) Test 04/18/19 07:40 White Blood Count 9.9 x10^3/uL (4.0-11.0) Red Blood Count 4.43 x10^6/uL (3.50-5.40) Hemoglobin 13.4 g/dL (12.0-15.5) Hematocrit 39.5 % (36.0-47.0) Mean Corpuscular Volume 89 fL (79-100) Mean Corpuscular Hemoglobin 30 pg (25-35) Mean Corpuscular Hemoglobin Concent 34 g/dL (31-37) Red Cell Distribution Width 14.9 % (11.5-14.5) Platelet Count 95 x10^3/uL (140-400) Objective: Assessment: 1. Leukocytosis. 2. Pyuria. The patient does not have any urinary symptoms. 3. Nausea, vomiting, coffee ground emesis, Abdominal pain radiating to back Abnormal LFTs with Abnormal CT focal enlargement of the neck of the pancre as, mild distention of the gallbladder with mild veronica-cholecystic inflammation, 4. Acute kidney injury. 5. Hyponatremia. 6. diarrhea resolved 7. Uncontrolled diabetes mellitus.Off medications 8. Pulmonary infiltrate, 9.. High proBNP. 10. Protein-calorie malnutrition. 11. Lactic acidosis. 12. PENICILLIN ALLERGY WITH NAUSEA, VOMITING. Does not recall taking Augmentin or amoxicillin. 13. H/O Dementia Plan: Plan of Care cont cefepime. Follow up blood culture and urine culture. GI following Maintain aspiration precaution. Continue supportive care. Discussed with nursing staff. AGUILAR TERRY MD Apr 18, 2019 08:55
[2019-04-18] MEDS ORDERED: CEFEPIME HCL IV Push 1 GM VIAL. IVP SCH (09:00)
[2019-04-18] MEDS: INSULIN LISPRO 300 UNITS/3 ML VIAL. SQ SCH ×3 (09:04→17:57)
--- NOTE | 2019-04-18 09:10 | HP ---
ADMIT DATE: 04/17/2019 CHIEF COMPLAINT AND HISTORY OF PRESENT ILLNESS: This 83-year-old white female, patient of Dr. Xiong who was admitted through the Emergency Room with several days of nausea and vomiting and progressive weakness. She was felt to be septic from urinary tract source and admitted to the hospital for the same through the Emergency Room. PAST MEDICAL HISTORY: Remarkable for prior sepsis, diabetes, hypertension, prior UTIs. Per Dr. Xiong, the patient has not been taking any diabetic medicines for some time and has had good blood sugars despite the same. MEDICATIONS: Brought with the patient, listed on computer and have been addressed. ALLERGIES: SHE IS ALLERGIC TO PENICILLIN. SOCIAL HISTORY: Noncontributory. FAMILY HISTORY: Noncontributory. REVIEW OF SYSTEMS: Remarkable for the weakness, the nausea and vomiting. She denies any hematochezia, melena, or hematemesis. She denies any dysuria, hematuria, frequency, urgency leading up to this. PHYSICAL EXAMINATION: GENERAL: She is well-developed, well-nourished female who appears ill. VITAL SIGNS: Stable and she is afebrile since admission. HEAD, EYES, EARS, NOSE AND THROAT: Remarkable for some dryness of mucous membranes. NECK: Supple, without lymphadenopathy or thyromegaly. CHEST: Clear to auscultation and percussion. HEART: Regular rate and rhythm without S3, S4 or murmur. ABDOMEN: Without hepatosplenomegaly, masses, tenderness, rebound, etc. She has no CVA tenderness. EXTREMITIES: Without cyanosis, clubbing or edema. NEUROLOGIC: She is intact. LABORATORY DATA: Initial laboratory includes a white count of 16,000 with a left shift. Initial blood sugars 538. Sodium is low at 123. BUN and creatinine are elevated at 65 and 2 consistent with acute kidney injury. Liver function tests were quite elevated with a bilirubin of 8.1, AST of 51, ALT of 126 and alkaline phosphatase of 290. BNP is high at 1881. Initial imaging includes a chest x-ray that shows an elevation of right hemidiaphragm and abdomen and pelvis CT with question of fullness at the neck of the pancreas. It was felt to be ill-defined, measuring approximately 23 mm in AP dimension and 22 in transverse dimension, felt to be a possibly small pancreatic neoplasm or focal pancreatic inflammation secondary to pancreatitis. No extrahepatic biliary ductal dilatation is noted. There is mild distention of the gallbladder and mild pericholecystic inflammation. There is mild cardiomegaly and focal consolidation in the medial posterior aspect of the right lower lobe with some associated pleural thickening in the area. She has mild L5 compression fracture of indeterminate age. Sigmoid diverticulosis without diverticulitis, small bubble of air in the urinary bladder, most likely from catheterization. IMPRESSION: Sepsis, acute kidney injury, hyperglycemia, diabetes, urinary tract infection, jaundice, elevated liver function tests, nausea, vomiting, abnormal CT of the abdomen. PLAN: The patient has been admitted. GI and ID are following. She is on broad-spectrum antibiotics and feeling better this morning. Bilirubin is down somewhat. White count is coming down and hopefully this is all septic related. She will likely need further imaging of the pancreas prior to the time of discharge to define this area more fully. VOLODYMYR HESS MD DR: RAF/crystal JOB#: [id number] / [id number] ELIANE Grissom MD
[2019-04-18 10:39] VITALS: BP 147/65
--- NOTE | 2019-04-18 11:45 | NUR ---
SS following for discharge planning. SS reviewed pt chart. Pt is from home and is currently requiring oxygen. SS will continue to follow for discharge planning.
[2019-04-18] MEDS ORDERED: CEFEPIME HCL IV Push 1 GM VIAL. IVP ONE (12:00)
--- NOTE | 2019-04-18 12:26 | PDOC2 ---
CONSULT Date of Consult Date of Consult DATE: 04/18/19 TIME: 12:20 Reason for Consult Reason for Consult: RYAN Identification/Chief Complaint Chief Complaint States feeling fine Source Source: Chart review History of Present Illness Reason for Visit: Hx mostly obtained from chart review, Pt is poor historian and very hard of hearing -- She is 83-year-old CF with history of DM 2 has not been taking her medications for the last couple of months, hypertension, history of UTI with bloodstream infection a year ago and she was admitted to [facility] Presented to ER with N/V/D/ abdominal pain, low appetite,generalized weakness, which started last Sunday. She does have some abdominal pain, which radiates to the back. She has vomiting with coffee ground emesis Social History No ALCOHOL: none Drugs: None Current Problem List Problem List Problems Medical Problems: (1) Abnormal CT of the abdomen Status: Acute (2) Atrial fibrillation Status: Acute (3) Elevated liver function tests Status: Acute (4) Hyperglycemia Status: Acute (5) Hypoalbuminemia Status: Acute (6) Jaundice Status: Acute (7) Nausea and vomiting Status: Acute (8) Renal insufficiency Status: Acute (9) Sepsis Status: Acute (10) Uncontrolled diabetes mellitus Status: Acute (11) Urinary tract infection Status: Acute Current Medications Current Medications Current Medications Sodium Chloride 1,000 ml @ 1,000 mls/hr 1X ONCE IV Last administered on 04/17/19at 09:35; Start 04/17/19 at 09:15; Stop 04/17/19 at 10:14; Status DC Sodium Chloride 1,000 ml @ 1,000 mls/hr 1X ONCE IV Last administered on 04/17/19at 09:35; Start 04/17/19 at 09:15; Stop 04/17/19 at 10:14; Status DC Insulin Human Regular (HumuLIN R VIAL) 10 unit 1X ONCE IV Last administered on 04/17/19at 09:47; Start 04/17/19 at 09:45; Stop 04/17/19 at 09:46; Status DC Ceftriaxone Sodium (Rocephin) 1 gm 1X ONCE IVP Last administered on 04/17/19at 11:09; Start 04/17/19 at 10:30; Stop 04/17/19 at 11:04; Status DC Vancomycin HCl 250 ml @ 250 mls/hr 1X ONCE IV Last administered on 04/17/19at 11:10; Start 04/17/19 at 10:30; Stop 04/17/19 at 11:29; Status DC Ondansetron HCl (Zofran) 4 mg PRN Q8HRS PRN IV NAUSEA/VOMITING; Start 04/17/19 at 11:30; Stop 04/17/19 at 18:00; Status DC Sodium Chloride 1,000 ml @ 150 mls/hr Q6H40M IV Last administered on 04/18/19at 01:26; Start 04/17/19 at 11:27; Stop 04/18/19 at 11:26; Status DC Insulin Human Lispro (HumaLOG) 0-7 UNITS TIDWMEALS SQ Last administered on 04/18/19at 11:35; Start 04/17/19 at 17:00 Dextrose (Dextrose 50%-Water Syringe) 12.5 gm PRN Q15MIN PRN IV SEE COMMENTS; Start 04/17/19 at 13:15 Acetaminophen (Tylenol) 650 mg PRN Q6HRS PRN PO pain ; Start 04/17/19 at 13:15 Cefepime HCl (Maxipime) 1 gm DAILY IVP Last administered on 04/18/19at 08:56; Start 04/18/19 at 09:00; Stop 04/18/19 at 11:04; Status DC Pantoprazole Sodium (PROTONIX VIAL for IV PUSH) 40 mg DAILYAC IVP Last administered on 04/18/19at 08:56; Start 04/18/19 at 07:30 Cefepime HCl (Maxipime) 1 gm 1X ONCE IVP Last administered on 04/18/19at 11:30; Start 04/18/19 at 12:00; Stop 04/18/19 at 12:01; Status DC Cefepime HCl (Maxipime) 2 gm Q24H IVP ; Start 04/19/19 at 09:00 Active Scripts Active Reported Lisinopril 10 Mg Tablet 1 Tab PO DAILY Amlodipine Besylate 10 Mg Tablet 10 Mg PO DAILY Allergies Allergies: Coded Allergies: Penicillins (Verified Allergy, Intermediate, 04/17/19) ROS Review of System Per HPI Physical Exam Physical Exam Gen NAD Heent no icterus Neck supple Lungs dec bs at bases Heart s1s2 abdo soft bs+ mildly distended, Ext no edema BAKER SECOND grossly normal Skin No rash Vital Signs Vital Signs Date Time Temp Pulse Resp B/P (MAP) Pulse Ox O2 Delivery O2 Flow Rate FiO2 04/18/19 10:39 98.0 85 20 147/65 (92) 97 Nasal Cannula 2.0 98.0 Assessment & Plan RYAN- Pr-renal 2/2 Vomiting Bicarb /L stable, UA pyuria , Imaging- kidneys unremarkable No intetval kabs available since 2013 (cr normal) in [facility] records or from PCP Supportive care, Strict I/O, Avoid nephrotoxins, Monitor , daily BMP HypoNa - Improving with IVF Pyuria -? UTI, asymptomatic Vomiting/"coffee-ground emesis- GI following Hgb normal abnormal LFTs, Focal enlargement of the neck of the pancreas, mild distention of the gallbladder w/ mild pericholecystic inflammation, indeterminate subcentimeter liver nodule Per GI H/o dementia Labs Labs Laboratory Tests Test 04/17/19 09:06 04/17/19 09:20 04/17/19 09:25 04/17/19 09:31 Urine Collection Type U cath Urine Color Sarah Urine Clarity Turbid Urine pH 5.0 Urine Specific [place] 1.020 Urine Protein 30 mg/dL (NEG-TRACE) Urine Glucose (UA) >=1000 mg/dL (NEG) Urine Ketones (Stick) Trace mg/dL (NEG) Urine Blood Moderate (NEG) Urine Nitrite Negative (NEG) Urine Bilirubin Small (NEG) Urine Urobilinogen Dipstick 0.2 mg/dL (0.2 mg/dL) Urine Leukocyte Esterase Large (NEG) Urine RBC 6-10 /HPF (0-2) Urine WBC >40 /HPF (0-4) Urine Squamous Epithelial Cells Few /LPF Urine Bacteria Many /HPF (0-FEW) Lactic Acid Level 2.9 mmol/L (0.4-2.0) Phosphorus Level 3.4 mg/dL (2.6-4.7) Acetone Level Neg (NEG) White Blood Count 16.0 x10^3/uL (4.0-11.0) Red Blood Count 4.94 x10^6/uL (3.50-5.40) Hemoglobin 15.1 g/dL (12.0-15.5) Hematocrit 44.0 % (36.0-47.0) Mean Corpuscular Volume 89 fL (79-100) Mean Corpuscular Hemoglobin 31 pg (25-35) Mean Corpuscular Hemoglobin Concent 34 g/dL (31-37) Red Cell Distribution Width 14.4 % (11.5-14.5) Platelet Count 146 x10^3/uL (140-400) Neutrophils (%) (Auto) 89 % (31-73) Lymphocytes (%) (Auto) 2 % (24-48) Monocytes (%) (Auto) 6 % (0-9) Eosinophils (%) (Auto) 3 % (0-3) Basophils (%) (Auto) 0 % (0-3) Neutrophils # (Auto) 14.3 x10^3/uL (1.8-7.7) Lymphocytes # (Auto) 0.3 x10^3/uL (1.0-4.8) Monocytes # (Auto) 1.0 x10^3/uL (0.0-1.1) Eosinophils # (Auto) 0.4 x10^3/uL (0.0-0.7) Basophils # (Auto) 0.0 x10^3/uL (0.0-0.2) Segmented Neutrophils % 87 % (35-66) Band Neutrophils % 4 % (0-9) Lymphocytes % 4 % (24-48) Monocytes % 5 % (0-10) Platelet Estimate Adequate (ADEQUATE) Polychromasia Slight Anisocytosis Slight Prothrombin Time 14.1 SEC (11.7-14.0) Prothromb Time International Ratio 1.1 (0.8-1.1) Activated Partial Thromboplast Time 26 SEC (24-38) Sodium Level 123 mmol/L (136-145) Potassium Level 4.1 mmol/L (3.5-5.1) Chloride Level 84 mmol/L (98-107) Carbon Dioxide Level 25 mmol/L (21-32) Anion Gap 14 (6-14) Blood Urea Nitrogen 65 mg/dL (7-20) Creatinine 2.0 mg/dL (0.6-1.0) Estimated GFR (Cockcroft-Gault) 23.8 BUN/Creatinine Ratio 33 (6-20) Glucose Level 538 mg/dL (70-99) Calcium Level 9.2 mg/dL (8.5-10.1) Magnesium Level 2.3 mg/dL (1.8-2.4) Total Bilirubin 8.1 mg/dL (0.2-1.0) Aspartate Amino Transf (AST/SGOT) 51 U/L (15-37) Alanine Aminotransferase (ALT/SGPT) 126 U/L (14-59) Alkaline Phosphatase 290 U/L (46-116) Creatine Kinase 43 U/L (26-192) Troponin I Quantitative < 0.017 ng/mL (0.000-0.055) [id number]-Kmq-[id number]-Type Natriuretic Peptide 1881 pg/mL (0-449) Total Protein 6.8 g/dL (6.4-8.2) Albumin 2.3 g/dL (3.4-5.0) Albumin/Globulin Ratio 0.5 (1.0-1.7) Lipase 96 U/L (73-393) Glucose (Fingerstick) 534 mg/dL (70-99) Test 04/17/19 09:34 04/17/19 10:56 04/17/19 12:45 04/17/19 16:50 O2 Saturation 96 % (92-99) Arterial Blood pH 7.41 (7.35-7.45) Arterial Blood pCO2 at Patient Temp 41 mmHg (35-46) Arterial Blood pO2 at Patient Temp 89 mmHg (65-108) Arterial Blood HCO3 25 mmol/L (21-28) Arterial Blood Base Excess 1 mmol/L (-3-3) FiO2 28 Glucose (Fingerstick) 381 mg/dL (70-99) 253 mg/dL (70-99) Lactic Acid Level 1.5 mmol/L (0.4-2.0) Ammonia < 10 mcmol/L (11-34) Test 04/17/19 21:06 04/17/19 23:33 04/18/19 03:30 04/18/19 07:11 Glucose (Fingerstick) 217 mg/dL (70-99) 256 mg/dL (70-99) 242 mg/dL (70-99) Sodium Level 131 mmol/L (136-145) Potassium Level 3.6 mmol/L (3.5-5.1) Chloride Level 99 mmol/L (98-107) Carbon Dioxide Level 22 mmol/L (21-32) Anion Gap 10 (6-14) Blood Urea Nitrogen 61 mg/dL (7-20) Creatinine 1.5 mg/dL (0.6-1.0) Estimated GFR (Cockcroft-Gault) 33.2 BUN/Creatinine Ratio 41 (6-20) Glucose Level 288 mg/dL (70-99) Calcium Level 8.1 mg/dL (8.5-10.1) Total Bilirubin 7.2 mg/dL (0.2-1.0) Aspartate Amino Transf (AST/SGOT) 38 U/L (15-37) Alanine Aminotransferase (ALT/SGPT) 67 U/L (14-59) Alkaline Phosphatase 257 U/L (46-116) Total Protein 5.3 g/dL (6.4-8.2) Albumin 1.6 g/dL (3.4-5.0) Albumin/Globulin Ratio 0.4 (1.0-1.7) Test 04/18/19 07:40 04/18/19 11:25 White Blood Count 9.9 x10^3/uL (4.0-11.0) Red Blood Count 4.43 x10^6/uL (3.50-5.40) Hemoglobin 13.4 g/dL (12.0-15.5) Hematocrit 39.5 % (36.0-47.0) Mean Corpuscular Volume 89 fL (79-100) Mean Corpuscular Hemoglobin 30 pg (25-35) Mean Corpuscular Hemoglobin Concent 34 g/dL (31-37) Red Cell Distribution Width 14.9 % (11.5-14.5) Platelet Count 95 x10^3/uL (140-400) Glucose (Fingerstick) 254 mg/dL (70-99) Laboratory Tests Test 04/17/19 12:45 04/17/19 16:50 04/17/19 21:06 04/17/19 23:33 Lactic Acid Level 1.5 mmol/L (0.4-2.0) Ammonia < 10 mcmol/L (11-34) Glucose (Fingerstick) 253 mg/dL (70-99) 217 mg/dL (70-99) 256 mg/dL (70-99) Test 04/18/19 03:30 04/18/19 07:11 04/18/19 07:40 04/18/19 11:25 Sodium Level 131 mmol/L (136-145) Potassium Level 3.6 mmol/L (3.5-5.1) Chloride Level 99 mmol/L (98-107) Carbon Dioxide Level 22 mmol/L (21-32) Anion Gap 10 (6-14) Blood Urea Nitrogen 61 mg/dL (7-20) Creatinine 1.5 mg/dL (0.6-1.0) Estimated GFR (Cockcroft-Gault) 33.2 BUN/Creatinine Ratio 41 (6-20) Glucose Level 288 mg/dL (70-99) Calcium Level 8.1 mg/dL (8.5-10.1) Total Bilirubin 7.2 mg/dL (0.2-1.0) Aspartate Amino Transf (AST/SGOT) 38 U/L (15-37) Alanine Aminotransferase (ALT/SGPT) 67 U/L (14-59) Alkaline Phosphatase 257 U/L (46-116) Total Protein 5.3 g/dL (6.4-8.2) Albumin 1.6 g/dL (3.4-5.0) Albumin/Globulin Ratio 0.4 (1.0-1.7) Glucose (Fingerstick) 242 mg/dL (70-99) 254 mg/dL (70-99) White Blood Count 9.9 x10^3/uL (4.0-11.0) Red Blood Count 4.43 x10^6/uL (3.50-5.40) Hemoglobin 13.4 g/dL (12.0-15.5) Hematocrit 39.5 % (36.0-47.0) Mean Corpuscular Volume 89 fL (79-100) Mean Corpuscular Hemoglobin 30 pg (25-35) Mean Corpuscular Hemoglobin Concent 34 g/dL (31-37) Red Cell Distribution Width 14.9 % (11.5-14.5) Platelet Count 95 x10^3/uL (140-400) Review All relevant outside records, renal labs, imaging studies, telemetry/EKG's were reviewed. Images Images US abdomen-- Difficult evaluation of the liver due to bowel gas and patient's inability to hold breath and decreased motion. Previously described subcentimeter liver lesion is not well characterized on ultrasound. The liver measures 14 cm. No gallbladder wall thickening measures 3 mm. No cholelithiasis. Mildly distended gallbladder. Common bile duct measures 2.1 mm in diameter. The right kidney measures 10.1 x 4.9 x 5.7 cm in length. No hydronephrosis. Right renal cyst measures 1.7 x 1.8 x 1.9 cm. Aorta and IVC not well seen due to overlying bowel gas. CT scan without contrast The liver and spleen are not abnormally enlarged. There is a subcentimeter indeterminate hypodense nodule within the dome of the right lobe liver best seen on coronal series #4 and image 42. No peripancreatic inflammation or free fluid or pseudocyst is evident. Without contrast, the evaluation of the pancreatic parenchyma is difficult. There is focal enlargement of the anterior aspect of the neck of the pancreas. There is no dilatation of the extra hepatic biliary duct. The gallbladder is mildly distended measuring 8 cm. There is mild increase in the fat around the gallbladder. This could represent pericholecystic inflammation. No gallbladder wall thickening is evident. No adrenal mass is evident. No hydronephrosis or hydroureter or urinary tract stone is evident. No renal mass is seen on either side on this noncontrast study. No focal aneurysmal dilatation of the abdominal aorta is seen. No enlarged abdominal or pelvic lymphadenopathy is evident. Urinary bladder wall is smooth. There is a small bubble of air within the urinary bladder. No uterine mass is evident. No dominant ovarian cyst or mass is evident. The terminal ileum and appendix are normal. No obstructive bowel pattern is evident. No bowel wall thickening is seen. Sigmoid diverticula are seen without pericolonic inflammation. No free air or free fluid or mesenteric edema is evident. Bibasilar groundglass lung infiltrates are seen. Heart size is enlarged. There is a mild compression fracture of L5. Transitional vertebrae is evident below the L5 level. No lytic process is seen. IMPRESSION: There is focal enlargement of the neck of the pancreas. This area is ill-defined lung this noncontrast study. It measures approximately 23 mm in AP dimension and 22 mm in transverse dimension. This could represent a small pancreatic neoplasm or focal pancreatic inflammation secondary to pancreatitis. No extra hepatic biliary ductal dilatation is seen. Mild distention of the gallbladder. Mild pericholecystic inflammation. Recommend right upper quadrant abdomen ultrasound study. Bibasilar groundglass lung infiltrates which may be due to pulmonary edema or atelectasis. Mild cardiomegaly. In addition, there is focal consolidation of the medial posterior aspect of the right lower lobe. There is associated pleural thickening here. Lung infiltrate such as pneumonia is certainly possible. Mild L5 compression fracture of indeterminate age. Indeterminate subcentimeter liver nodule. Sigmoid diverticulosis without diverticulitis. Small bubble of air seen within the urinary bladder which most likely is due to the short female urethra or recent catheterization. No urinary bladder wall thickening. THUY FARLEY MD Apr 18, 2019 12:26
--- NOTE | 2019-04-18 12:55 | PDOC ---
Subjective: Subjective: Feels fine, wants some water, wants me to help her sit up in bed. Objective: Objective: No vomiting/bleeding per nurse. Vital Signs: Vital Signs Date Time Temp Pulse Resp B/P (MAP) Pulse Ox O2 Delivery O2 Flow Rate FiO2 04/18/19 10:39 98.0 85 20 147/65 (92) 97 Nasal Cannula 2.0 98.0 Labs: Laboratory Tests Test 04/17/19 12:45 04/17/19 16:50 04/17/19 21:06 04/17/19 23:33 Lactic Acid Level 1.5 mmol/L Ammonia < 10 mcmol/L Glucose (Fingerstick) 253 mg/dL 217 mg/dL 256 mg/dL Test 04/18/19 03:30 04/18/19 07:11 04/18/19 07:40 04/18/19 11:25 Sodium Level 131 mmol/L Potassium Level 3.6 mmol/L Chloride Level 99 mmol/L Carbon Dioxide Level 22 mmol/L Anion Gap 10 Blood Urea Nitrogen 61 mg/dL Creatinine 1.5 mg/dL Estimated GFR (Cockcroft-Gault) 33.2 BUN/Creatinine Ratio 41 Glucose Level 288 mg/dL Calcium Level 8.1 mg/dL Total Bilirubin 7.2 mg/dL Aspartate Amino Transf (AST/SGOT) 38 U/L Alanine Aminotransferase (ALT/SGPT) 67 U/L Alkaline Phosphatase 257 U/L Total Protein 5.3 g/dL Albumin 1.6 g/dL Albumin/Globulin Ratio 0.4 Glucose (Fingerstick) 242 mg/dL 254 mg/dL White Blood Count 9.9 x10^3/uL Red Blood Count 4.43 x10^6/uL Hemoglobin 13.4 g/dL Hematocrit 39.5 % Mean Corpuscular Volume 89 fL Mean Corpuscular Hemoglobin 30 pg Mean Corpuscular Hemoglobin Concent 34 g/dL Red Cell Distribution Width 14.9 % Platelet Count 95 x10^3/uL Imaging: Abd US Findings: Visualized pancreas is is not well seen due to overlying bowel gas. Difficult evaluation of the liver due to bowel gas and patient's inability to hold breath and decreased motion. Previously described subcentimeter liver lesion is not well characterized on ultrasound. The liver measures 14 cm. No gallbladder wall thickening measures 3 mm. No cholelithiasis. Mildly distended gallbladder. Common bile duct measures 2.1 mm in diameter. The right kidney measures 10.1 x 4.9 x 5.7 cm in length. No hydronephrosis. Right renal cyst measures 1.7 x 1.8 x 1.9 cm. Aorta and IVC not well seen due to overlying bowel gas. IMPRESSION: 1. Mildly distended gallbladder. No significant gallbladder wall thickening. Persistent clinical concern for right upper quadrant pain HIDA scan can further evaluate gallbladder function. 2. Degraded evaluation of the liver and pancreas, as described. PE: GEN: NAD - was asleep LUNGS: CTAB HEART: RRR ABD: NABS, S/ND/NT NEURO/PSYCH: A & O 3 A/P: Vomiting/"coffee-ground emesis" - no recurrence GNR bacteremia/UTI Abnormal CT - focal enlargement of the neck of the pancreas CBD dilatation -- ADAT, change to PO PPI. ?additional pancreas/liver imaging later JENNIFER DORANTES Apr 18, 2019 12:55
[2019-04-18 14:16] VITALS: BP 167/67
--- NOTE | 2019-04-18 15:48 | NUR ---
SS following up with discharge planning. Pt's family requesting that pt go to [facility], ; fax [phone], at discharge. PT/OT ordered. SS will continue to follow for discharge planning.
--- NOTE | 2019-04-18 19:10 | NUR ---
Transfer from room 202 to room 248 at this time due to staffing needs. Pt son and daughter informed of this. Room 202 was double checked by this RN for belongings and none were found after transfer. She has her glasses, hearing aides and case, and upper and lower dentures with her. Pt updated on plan of care as well.
[2019-04-18 20:04] VITALS: BP 148/46
[2019-04-18] MEDS: ACETAMINOPHEN 325 MG TABLET. PO PRN (21:05)
[2019-04-18 22:26] VITALS: BP 135/64
[2019-04-19 02:37] VITALS: BP 172/63
[2019-04-19 04:48] LABS: BASO % 0 % (0-3); EOS # 0.1 x10^3/uL (0.0-0.7); EOS % 1 % (0-3); HEMATOCRIT 38.1 % (36.0-47.0); HEMOGLOBIN 13.1 g/dL (12.0-15.5); LYMPH # 0.3 x10^3/uL (1.0-4.8); LYMPH % 4 % (24-48); MEAN CORPUSCULAR HEMOGLOBIN 30 pg (25-35); MEAN CORPUSCULAR HGB CONC 34 g/dL (31-37); MEAN CORPUSCULAR VOLUME 88 fL (79-100); MONO # 0.5 x10^3/uL (0.0-1.1); MONO % 6 % (0-9); NEUT # 7.6 x10^3/uL (1.8-7.7); NEUT % 90 % (31-73); PLATELET COUNT 85 x10^3/uL (140-400); RED BLOOD COUNT 4.32 x10^6/uL (3.50-5.40); RED CELL DISTRIBUTION WIDTH 15.1 % (11.5-14.5); WHITE BLOOD COUNT 8.5 x10^3/uL (4.0-11.0)
[2019-04-19 05:08] LABS: ALBUMIN 1.6 g/dL (3.4-5.0); ALBUMIN/GLOBULIN RATIO 0.4 (1.0-1.7); CALCIUM 8.5 mg/dL (8.5-10.1); POTASSIUM 3.3 mmol/L (3.5-5.1); TOTAL BILIRUBIN 8.9 mg/dL (0.2-1.0); TOTAL PROTEIN 5.4 g/dL (6.4-8.2)
[2019-04-19 07:30] VITALS: BP 176/73
[2019-04-19] MEDS ORDERED: CEFEPIME HCL IV Push 2 GM VIAL. IVP SCH (09:00)
[2019-04-19] MEDS: PANTOPRAZOLE 40 MG TABLET.DR. PO SCH (09:44)
[2019-04-19] MEDS: INSULIN LISPRO 300 UNITS/3 ML VIAL. SQ SCH ×3 (09:49→18:01)
[2019-04-19 11:00] VITALS: BP 159/58
--- NOTE | 2019-04-19 11:38 | PDOC ---
Infectious Disease Note Subjective Subjective Feeling better getting ready to do some physical therapy Appetite diminished 2L O2 Denies N/V/D/F/C ROS ROS per HPI Vital Sign Vital Signs Vital Signs Date Time Temp Pulse Resp B/P (MAP) Pulse Ox O2 Delivery O2 Flow Rate FiO2 04/19/19 07:42 Nasal Cannula 2.0 04/19/19 07:30 98.1 89 20 176/73 (107) 98 98.1 Physical Exam PHYSICAL EXAM GENERAL: Propped up in bed, alert, NAD HENT: Oral cavity dry. + dentures NECK: Suplle LUNGS: Clear CV: S1, S2 ABDOMEN: Soft and nontender EXT: No gross edema or cyanosis SKIN: warm to touch. No signs of rash [employer] LAMINATOR: Alert, answering simple questions appropriately PIV Labs Lab Laboratory Tests Test 04/18/19 16:22 04/18/19 21:07 04/19/19 04:00 04/19/19 07:26 Glucose (Fingerstick) 236 mg/dL (70-99) 192 mg/dL (70-99) 166 mg/dL (70-99) White Blood Count 8.5 x10^3/uL (4.0-11.0) Red Blood Count 4.32 x10^6/uL (3.50-5.40) Hemoglobin 13.1 g/dL (12.0-15.5) Hematocrit 38.1 % (36.0-47.0) Mean Corpuscular Volume 88 fL (79-100) Mean Corpuscular Hemoglobin 30 pg (25-35) Mean Corpuscular Hemoglobin Concent 34 g/dL (31-37) Red Cell Distribution Width 15.1 % (11.5-14.5) Platelet Count 85 x10^3/uL (140-400) Neutrophils (%) (Auto) 90 % (31-73) Lymphocytes (%) (Auto) 4 % (24-48) Monocytes (%) (Auto) 6 % (0-9) Eosinophils (%) (Auto) 1 % (0-3) Basophils (%) (Auto) 0 % (0-3) Neutrophils # (Auto) 7.6 x10^3/uL (1.8-7.7) Lymphocytes # (Auto) 0.3 x10^3/uL (1.0-4.8) Monocytes # (Auto) 0.5 x10^3/uL (0.0-1.1) Eosinophils # (Auto) 0.1 x10^3/uL (0.0-0.7) Basophils # (Auto) 0.0 x10^3/uL (0.0-0.2) Sodium Level 135 mmol/L (136-145) Potassium Level 3.3 mmol/L (3.5-5.1) Chloride Level 99 mmol/L (98-107) Carbon Dioxide Level 27 mmol/L (21-32) Anion Gap 9 (6-14) Blood Urea Nitrogen 36 mg/dL (7-20) Creatinine 1.0 mg/dL (0.6-1.0) Estimated GFR (Cockcroft-Gault) 53.0 BUN/Creatinine Ratio 36 (6-20) Glucose Level 194 mg/dL (70-99) Calcium Level 8.5 mg/dL (8.5-10.1) Total Bilirubin 8.9 mg/dL (0.2-1.0) Aspartate Amino Transf (AST/SGOT) 57 U/L (15-37) Alanine Aminotransferase (ALT/SGPT) 61 U/L (14-59) Alkaline Phosphatase 340 U/L (46-116) Total Protein 5.4 g/dL (6.4-8.2) Albumin 1.6 g/dL (3.4-5.0) Albumin/Globulin Ratio 0.4 (1.0-1.7) US 1. Mildly distended gallbladder. No significant gallbladder wall thickening. Persistent clinical concern for right upper quadrant pain HIDA scan can further evaluate gallbladder function. 2. Degraded evaluation of the liver and pancreas, as described. Micro 04/17. BLOOD CULTURE Final GRAM NEGATIVE RODS IN 4 OF 4 BOTTLES(BOTH BOTTLES THIS SET). TWO SETS WERE DRAWN. THE RESULT WAS CALLED TO CLARISSA POTTS(2N)ON 04/18/19 AT 1054 BY Mar FRAUSTO. 04/17. URINE CULTURE RES 1 Final Lactobacillus species Objective Assessment GNR sepsis from 04/17. Leukocytosis. Pyuria. The patient does not have any urinary symptoms. UC lactobacillus Abnormal LFTs with Abnormal CT focal enlargement of the neck of the pancreas, mild distention of the gallbladder w/ mild pericholecystic inflammation, indeterminate subcentimeter liver nodule Acute kidney injury. Hyponatremia. Nausea, vomiting, coffee ground emesis, diarrhea - better Uncontrolled diabetes mellitus.Off medications Pulmonary infiltrate, High proBNP. Protein-calorie malnutrition. Lactic acidosis. PENICILLIN ALLERGY WITH NAUSEA, VOMITING. Does not recall taking Augmentin or amoxicillin. H/O Dementia Plan Plan of Care cont cefepime Awaiting GNR ID/susceptibilities GI following Maintain aspiration precaution. Continue supportive care. D/w nursing Doing ok. D/w nursing Attending Co-Sign Attending Co-Sign The patient was seen and interviewed as well as examined at the bedside. The chart was reviewed. The case was discussed. Agree with the plan of care. KESHIA ENGEL APRN Apr 19, 2019 11:38 MARILEE DO MD Apr 19, 2019 16:03
--- NOTE | 2019-04-19 11:44 | PDOC ---
G I PROGRESS NOTE Reason for Follow-up Jaundice Subjective Appetite improving Physical Exam Lungs decreased BS CV S1 S2 ABD +BS, soft, nontender Review of Relevant I have reviewed the following items jose (where applicable) has been applied. Labs Laboratory Tests Test 04/17/19 12:45 04/17/19 16:50 04/17/19 21:06 04/17/19 23:33 Lactic Acid Level 1.5 mmol/L (0.4-2.0) Ammonia < 10 mcmol/L (11-34) CA 19-9 Antigen 114 U/mL (0-35) Glucose (Fingerstick) 253 mg/dL (70-99) 217 mg/dL (70-99) 256 mg/dL (70-99) Test 04/18/19 03:30 04/18/19 07:11 04/18/19 07:40 04/18/19 11:25 Sodium Level 131 mmol/L (136-145) Potassium Level 3.6 mmol/L (3.5-5.1) Chloride Level 99 mmol/L (98-107) Carbon Dioxide Level 22 mmol/L (21-32) Anion Gap 10 (6-14) Blood Urea Nitrogen 61 mg/dL (7-20) Creatinine 1.5 mg/dL (0.6-1.0) Estimated GFR (Cockcroft-Gault) 33.2 BUN/Creatinine Ratio 41 (6-20) Glucose Level 288 mg/dL (70-99) Calcium Level 8.1 mg/dL (8.5-10.1) Total Bilirubin 7.2 mg/dL (0.2-1.0) Aspartate Amino Transf (AST/SGOT) 38 U/L (15-37) Alanine Aminotransferase (ALT/SGPT) 67 U/L (14-59) Alkaline Phosphatase 257 U/L (46-116) Total Protein 5.3 g/dL (6.4-8.2) Albumin 1.6 g/dL (3.4-5.0) Albumin/Globulin Ratio 0.4 (1.0-1.7) Glucose (Fingerstick) 242 mg/dL (70-99) 254 mg/dL (70-99) White Blood Count 9.9 x10^3/uL (4.0-11.0) Red Blood Count 4.43 x10^6/uL (3.50-5.40) Hemoglobin 13.4 g/dL (12.0-15.5) Hematocrit 39.5 % (36.0-47.0) Mean Corpuscular Volume 89 fL (79-100) Mean Corpuscular Hemoglobin 30 pg (25-35) Mean Corpuscular Hemoglobin Concent 34 g/dL (31-37) Red Cell Distribution Width 14.9 % (11.5-14.5) Platelet Count 95 x10^3/uL (140-400) Test 04/18/19 16:22 04/18/19 21:07 04/19/19 04:00 04/19/19 07:26 Glucose (Fingerstick) 236 mg/dL (70-99) 192 mg/dL (70-99) 166 mg/dL (70-99) White Blood Count 8.5 x10^3/uL (4.0-11.0) Red Blood Count 4.32 x10^6/uL (3.50-5.40) Hemoglobin 13.1 g/dL (12.0-15.5) Hematocrit 38.1 % (36.0-47.0) Mean Corpuscular Volume 88 fL (79-100) Mean Corpuscular Hemoglobin 30 pg (25-35) Mean Corpuscular Hemoglobin Concent 34 g/dL (31-37) Red Cell Distribution Width 15.1 % (11.5-14.5) Platelet Count 85 x10^3/uL (140-400) Neutrophils (%) (Auto) 90 % (31-73) Lymphocytes (%) (Auto) 4 % (24-48) Monocytes (%) (Auto) 6 % (0-9) Eosinophils (%) (Auto) 1 % (0-3) Basophils (%) (Auto) 0 % (0-3) Neutrophils # (Auto) 7.6 x10^3/uL (1.8-7.7) Lymphocytes # (Auto) 0.3 x10^3/uL (1.0-4.8) Monocytes # (Auto) 0.5 x10^3/uL (0.0-1.1) Eosinophils # (Auto) 0.1 x10^3/uL (0.0-0.7) Basophils # (Auto) 0.0 x10^3/uL (0.0-0.2) Sodium Level 135 mmol/L (136-145) Potassium Level 3.3 mmol/L (3.5-5.1) Chloride Level 99 mmol/L (98-107) Carbon Dioxide Level 27 mmol/L (21-32) Anion Gap 9 (6-14) Blood Urea Nitrogen 36 mg/dL (7-20) Creatinine 1.0 mg/dL (0.6-1.0) Estimated GFR (Cockcroft-Gault) 53.0 BUN/Creatinine Ratio 36 (6-20) Glucose Level 194 mg/dL (70-99) Calcium Level 8.5 mg/dL (8.5-10.1) Total Bilirubin 8.9 mg/dL (0.2-1.0) Aspartate Amino Transf (AST/SGOT) 57 U/L (15-37) Alanine Aminotransferase (ALT/SGPT) 61 U/L (14-59) Alkaline Phosphatase 340 U/L (46-116) Total Protein 5.4 g/dL (6.4-8.2) Albumin 1.6 g/dL (3.4-5.0) Albumin/Globulin Ratio 0.4 (1.0-1.7) Laboratory Tests Test 04/18/19 16:22 04/18/19 21:07 04/19/19 04:00 04/19/19 07:26 Glucose (Fingerstick) 236 mg/dL (70-99) 192 mg/dL (70-99) 166 mg/dL (70-99) White Blood Count 8.5 x10^3/uL (4.0-11.0) Red Blood Count 4.32 x10^6/uL (3.50-5.40) Hemoglobin 13.1 g/dL (12.0-15.5) Hematocrit 38.1 % (36.0-47.0) Mean Corpuscular Volume 88 fL (79-100) Mean Corpuscular Hemoglobin 30 pg (25-35) Mean Corpuscular Hemoglobin Concent 34 g/dL (31-37) Red Cell Distribution Width 15.1 % (11.5-14.5) Platelet Count 85 x10^3/uL (140-400) Neutrophils (%) (Auto) 90 % (31-73) Lymphocytes (%) (Auto) 4 % (24-48) Monocytes (%) (Auto) 6 % (0-9) Eosinophils (%) (Auto) 1 % (0-3) Basophils (%) (Auto) 0 % (0-3) Neutrophils # (Auto) 7.6 x10^3/uL (1.8-7.7) Lymphocytes # (Auto) 0.3 x10^3/uL (1.0-4.8) Monocytes # (Auto) 0.5 x10^3/uL (0.0-1.1) Eosinophils # (Auto) 0.1 x10^3/uL (0.0-0.7) Basophils # (Auto) 0.0 x10^3/uL (0.0-0.2) Sodium Level 135 mmol/L (136-145) Potassium Level 3.3 mmol/L (3.5-5.1) Chloride Level 99 mmol/L (98-107) Carbon Dioxide Level 27 mmol/L (21-32) Anion Gap 9 (6-14) Blood Urea Nitrogen 36 mg/dL (7-20) Creatinine 1.0 mg/dL (0.6-1.0) Estimated GFR (Cockcroft-Gault) 53.0 BUN/Creatinine Ratio 36 (6-20) Glucose Level 194 mg/dL (70-99) Calcium Level 8.5 mg/dL (8.5-10.1) Total Bilirubin 8.9 mg/dL (0.2-1.0) Aspartate Amino Transf (AST/SGOT) 57 U/L (15-37) Alanine Aminotransferase (ALT/SGPT) 61 U/L (14-59) Alkaline Phosphatase 340 U/L (46-116) Total Protein 5.4 g/dL (6.4-8.2) Albumin 1.6 g/dL (3.4-5.0) Albumin/Globulin Ratio 0.4 (1.0-1.7) Microbiology 04/17/19 Blood Culture - Final, Complete 04/17/19 Urine Culture - Final, Complete 04/17/19 Urine Culture Result 1 (SUMIT) - Final, Complete Medications Current Medications Sodium Chloride 1,000 ml @ 1,000 mls/hr 1X ONCE IV Last administered on 04/17/19at 09:35; Start 04/17/19 at 09:15; Stop 04/17/19 at 10:14; Status DC Sodium Chloride 1,000 ml @ 1,000 mls/hr 1X ONCE IV Last administered on 04/17/19at 09:35; Start 04/17/19 at 09:15; Stop 04/17/19 at 10:14; Status DC Insulin Human Regular (HumuLIN R VIAL) 10 unit 1X ONCE IV Last administered on 04/17/19at 09:47; Start 04/17/19 at 09:45; Stop 04/17/19 at 09:46; Status DC Ceftriaxone Sodium (Rocephin) 1 gm 1X ONCE IVP Last administered on 04/17/19 11:09; Start 04/17/19 at 10:30; Stop 04/17/19 at 11:04; Status DC Vancomycin HCl 250 ml @ 250 mls/hr 1X ONCE IV Last administered on 04/17/19at 11:10; Start 04/17/19 at 10:30; Stop 04/17/19 at 11:29; Status DC Ondansetron HCl (Zofran) 4 mg PRN Q8HRS PRN IV NAUSEA/VOMITING; Start 04/17/19 at 11:30; Stop 04/17/19 at 18:00; Status DC Sodium Chloride 1,000 ml @ 150 mls/hr Q6H40M IV Last administered on 04/18/19at 14:33; Start 04/17/19 at 11:27; Stop 04/18/19 at 11:26; Status DC Insulin Human Lispro (HumaLOG) 0-7 UNITS TIDWMEALS SQ Last administered on 04/19/19at 09:49; Start 04/17/19 at 17:00 Dextrose (Dextrose 50%-Water Syringe) 12.5 gm PRN Q15MIN PRN IV SEE COMMENTS; Start 04/17/19 at 13:15 Acetaminophen (Tylenol) 650 mg PRN Q6HRS PRN PO pain Last administered on 04/18/19at 21:05; Start 04/17/19 at 13:15 Cefepime HCl (Maxipime) 1 gm DAILY IVP Last administered on 04/18/19at 08:56; Start 04/18/19 at 09:00; Stop 04/18/19 at 11:04; Status DC Pantoprazole Sodium (PROTONIX VIAL for IV PUSH) 40 mg DAILYAC IVP Last administered on 04/18/19at 08:56; Start 04/18/19 at 07:30; Stop 04/18/19 at 12:57; Status DC Cefepime HCl (Maxipime) 1 gm 1X ONCE IVP Last administered on 04/18/19at 11:30; Start 04/18/19 at 12:00; Stop 04/18/19 at 12:01; Status DC Cefepime HCl (Maxipime) 2 gm Q24H IVP Last administered on 04/19/19at 09:50; Start 04/19/19 at 09:00 Pantoprazole Sodium (Protonix) 40 mg DAILYAC PO Last administered on 04/19/19at 09:44; Start 04/19/19 at 07:30 Active Scripts Active Reported Lisinopril 10 Mg Tablet 1 Tab PO DAILY Amlodipine Besylate 10 Mg Tablet 10 Mg PO DAILY Vitals/I & O Vital Sign - Last 24 Hours 04/18/19 04/18/19 04/18/19 04/18/19 14:16 20:04 20:29 22:26 Temp 98.0 98.0 98.6 98.0 98.0 98.6 Pulse 87 85 78 Resp 20 18 20 B/P (MAP) 167/67 (100) 148/46 (80) 135/64 (87) Pulse Ox 96 92 95 O2 Delivery Nasal Cannula Nasal Cannula Nasal Cannula Nasal Cannula O2 Flow Rate 2.0 2.0 2.0 04/19/19 04/19/19 04/19/19 02:37 07:30 07:42 Temp 98.3 98.1 98.3 98.1 Pulse 78 89 Resp 20 20 B/P (MAP) 172/63 (99) 176/73 (107) Pulse Ox 94 98 O2 Delivery Nasal Cannula Nasal Cannula Nasal Cannula O2 Flow Rate 2.0 2.0 2.0 Intake and Output 04/18/19 04/18/19 04/19/19 15:00 23:00 07:00 Intake Total 100 ml 300 ml 650 ml Output Total 300 ml 220 ml Balance -200 ml 300 ml 430 ml Problem List Problems Medical Problems: (1) Abnormal CT of the abdomen Status: Acute (2) Atrial fibrillation Status: Acute (3) Elevated liver function tests Status: Acute (4) Hyperglycemia Status: Acute (5) Hypoalbuminemia Status: Acute (6) Jaundice Status: Acute (7) Nausea and vomiting Status: Acute (8) Renal insufficiency Status: Acute (9) Sepsis Status: Acute (10) Uncontrolled diabetes mellitus Status: Acute (11) Urinary tract infection Status: Acute Assessment Jaundice- with rising alkp hos/T bili, will recheck Sunday, If they continue to incerase, then MRCp to furtyher assess pancreatic lesion on Ct would be pursued ERVIN BOONE MD Apr 19, 2019 11:44
--- NOTE | 2019-04-19 12:40 | PDOC ---
SUBJECTIVE ROS More alert, ? 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 On Abx Urine reddish (micr hematuria+, Bili elevated ),Per ID and pcp Vomiting/"coffee-ground emesis- GI following Hgb normal abnormal LFTs, plus elevated Bili Focal enlargement of the neck of the pancreas, mild distention of the gallbladder w/ mild pericholecystic inflammation, indeterminate subcentimeter liver nodule Per GI H/o dementia COMMENT/RELEVANT DATA Meds Current Medications Medications (Trade) Dose Ordered Sig/Almaz Start Time Stop Time Status Last Admin Dose Admin Acetaminophen (Tylenol) 650 mg PRN Q6HRS PRN 04/17/19 13:15 04/18/19 21:05 650 MG Cefepime HCl (Maxipime) 2 gm Q24H 04/19/19 09:00 04/19/19 09:50 2 GM Ceftriaxone Sodium (Rocephin) 1 gm 1X ONCE 04/17/19 10:30 04/17/19 11:04 DC 04/17/19 11:09 1 GM Dextrose (Dextrose 50%-Water Syringe) 12.5 gm PRN Q15MIN PRN 04/17/19 13:15 Insulin Human Lispro (HumaLOG) 0-7 UNITS TIDWMEALS 04/17/19 17:00 04/19/19 09:49 3 UNITS Insulin Human Regular (HumuLIN R VIAL) 10 unit 1X ONCE 04/17/19 09:45 04/17/19 09:46 DC 04/17/19 09:47 10 UNIT Ondansetron HCl (Zofran) 4 mg PRN Q8HRS PRN 04/17/19 11:30 04/17/19 18:00 DC Pantoprazole Sodium (PROTONIX VIAL for IV PUSH) 40 mg DAILYAC 04/18/19 07:30 04/18/19 12:57 DC 04/18/19 08:56 40 MG Pantoprazole Sodium (Protonix) 40 mg DAILYAC 04/19/19 07:30 04/19/19 09:44 40 MG Sodium Chloride 1,000 ml @ 150 mls/hr Q6H40M 04/17/19 11:27 04/18/19 11:26 DC 04/18/19 14:33 150 MLS/HR Vancomycin HCl 250 ml @ 250 mls/hr 1X ONCE 04/17/19 10:30 04/17/19 11:29 DC 04/17/19 11:10 250 MLS/HR Lab Laboratory Tests Test 04/18/19 16:22 04/18/19 21:07 04/19/19 04:00 04/19/19 07:26 Glucose (Fingerstick) 236 mg/dL (70-99) 192 mg/dL (70-99) 166 mg/dL (70-99) White Blood Count 8.5 x10^3/uL (4.0-11.0) Red Blood Count 4.32 x10^6/uL (3.50-5.40) Hemoglobin 13.1 g/dL (12.0-15.5) Hematocrit 38.1 % (36.0-47.0) Mean Corpuscular Volume 88 fL (79-100) Mean Corpuscular Hemoglobin 30 pg (25-35) Mean Corpuscular Hemoglobin Concent 34 g/dL (31-37) Red Cell Distribution Width 15.1 % (11.5-14.5) Platelet Count 85 x10^3/uL (140-400) Neutrophils (%) (Auto) 90 % (31-73) Lymphocytes (%) (Auto) 4 % (24-48) Monocytes (%) (Auto) 6 % (0-9) Eosinophils (%) (Auto) 1 % (0-3) Basophils (%) (Auto) 0 % (0-3) Neutrophils # (Auto) 7.6 x10^3/uL (1.8-7.7) Lymphocytes # (Auto) 0.3 x10^3/uL (1.0-4.8) Monocytes # (Auto) 0.5 x10^3/uL (0.0-1.1) Eosinophils # (Auto) 0.1 x10^3/uL (0.0-0.7) Basophils # (Auto) 0.0 x10^3/uL (0.0-0.2) Sodium Level 135 mmol/L (136-145) Potassium Level 3.3 mmol/L (3.5-5.1) Chloride Level 99 mmol/L (98-107) Carbon Dioxide Level 27 mmol/L (21-32) Anion Gap 9 (6-14) Blood Urea Nitrogen 36 mg/dL (7-20) Creatinine 1.0 mg/dL (0.6-1.0) Estimated GFR (Cockcroft-Gault) 53.0 BUN/Creatinine Ratio 36 (6-20) Glucose Level 194 mg/dL (70-99) Calcium Level 8.5 mg/dL (8.5-10.1) Total Bilirubin 8.9 mg/dL (0.2-1.0) Aspartate Amino Transf (AST/SGOT) 57 U/L (15-37) Alanine Aminotransferase (ALT/SGPT) 61 U/L (14-59) Alkaline Phosphatase 340 U/L (46-116) Total Protein 5.4 g/dL (6.4-8.2) Albumin 1.6 g/dL (3.4-5.0) Albumin/Globulin Ratio 0.4 (1.0-1.7) Test 04/19/19 12:05 Glucose (Fingerstick) 219 mg/dL (70-99) Results All relevant outside records, renal labs, imaging studies, telemetry/EKG's were reviewed. THUY FARLEY MD Apr 19, 2019 12:40
[2019-04-19] MEDS: IV NORMAL SALINE 1000ML BAG 1,000 ML IV SCH (13:08)
[2019-04-19 15:00] VITALS: BP 138/84
--- NOTE | 2019-04-19 15:52 | PDOC ---
GENERAL General: vss and afebrile. awake and alert and feels better. chest clear, heart regular, some ruq tenderness on exam. wbc decreased to 8.5K, platelets decreased to 85K, bili at 8.9, alk phos increased at 340 today, K+3.3, sugars about 200, 4/4 sets blood cultures positive for gram negative rods with likely source intrabdominal with negative urine culture. will get surgical opinion also though clinically much improved with stable jaundice. RYAN resolved with creatinine down to 1.0. replace K+ and follow platelets. VITAL SIGNS/I&O Vital Signs/I&O: Vital Signs Date Time Temp Pulse Resp B/P (MAP) Pulse Ox O2 Delivery O2 Flow Rate FiO2 04/19/19 15:00 98.5 78 20 138/84 (102) 95 Nasal Cannula 2.0 98.5 I & O 04/18/19 04/18/19 04/19/19 15:00 23:00 07:00 Intake Total 100 ml 300 ml 650 ml Output Total 300 ml 220 ml Balance -200 ml 300 ml 430 ml ALLERGIES Allergies: Allergies Coded Allergies Type Severity Reaction Last Updated Verified Penicillins Allergy Intermediate 04/17/19 Yes MEDS Medications: Current Medications Medications (Trade) Dose Ordered Sig/Almaz Route PRN Reason Start Time Stop Time Status Last Admin Dose Admin Cefepime HCl (Maxipime) 2 gm Q24H IVP 04/19/19 09:00 04/19/19 09:50 Pantoprazole Sodium (Protonix) 40 mg DAILYAC PO 04/19/19 07:30 04/19/19 09:44 Sodium Chloride 1,000 ml @ 75 mls/hr [id number] IV 04/19/19 13:00 04/19/19 13:08 LAB Lab: Laboratory Tests Test 04/18/19 16:22 04/18/19 21:07 04/19/19 04:00 04/19/19 07:26 Glucose (Fingerstick) 236 mg/dL (70-99) H 192 mg/dL (70-99) H 166 mg/dL (70-99) H White Blood Count 8.5 x10^3/uL (4.0-11.0) Red Blood Count 4.32 x10^6/uL (3.50-5.40) Hemoglobin 13.1 g/dL (12.0-15.5) Hematocrit 38.1 % (36.0-47.0) Mean Corpuscular Volume 88 fL (79-100) Mean Corpuscular Hemoglobin 30 pg (25-35) Mean Corpuscular Hemoglobin Concent 34 g/dL (31-37) Red Cell Distribution Width 15.1 % (11.5-14.5) H Platelet Count 85 x10^3/uL (140-400) L Neutrophils (%) (Auto) 90 % (31-73) H Lymphocytes (%) (Auto) 4 % (24-48) L Monocytes (%) (Auto) 6 % (0-9) Eosinophils (%) (Auto) 1 % (0-3) Basophils (%) (Auto) 0 % (0-3) Neutrophils # (Auto) 7.6 x10^3/uL (1.8-7.7) Lymphocytes # (Auto) 0.3 x10^3/uL (1.0-4.8) L Monocytes # (Auto) 0.5 x10^3/uL (0.0-1.1) Eosinophils # (Auto) 0.1 x10^3/uL (0.0-0.7) Basophils # (Auto) 0.0 x10^3/uL (0.0-0.2) Sodium Level 135 mmol/L (136-145) L Potassium Level 3.3 mmol/L (3.5-5.1) L Chloride Level 99 mmol/L (98-107) Carbon Dioxide Level 27 mmol/L (21-32) Anion Gap 9 (6-14) Blood Urea Nitrogen 36 mg/dL (7-20) H Creatinine 1.0 mg/dL (0.6-1.0) Estimated GFR (Cockcroft-Gault) 53.0 BUN/Creatinine Ratio 36 (6-20) H Glucose Level 194 mg/dL (70-99) H Calcium Level 8.5 mg/dL (8.5-10.1) Total Bilirubin 8.9 mg/dL (0.2-1.0) H Aspartate Amino Transferase (AST) 57 U/L (15-37) H Alanine Aminotransferase (ALT) 61 U/L (14-59) H Alkaline Phosphatase 340 U/L (46-116) H Total Protein 5.4 g/dL (6.4-8.2) L Albumin 1.6 g/dL (3.4-5.0) L Albumin/Globulin Ratio 0.4 (1.0-1.7) L Test 04/19/19 12:05 Glucose (Fingerstick) 219 mg/dL (70-99) H Laboratory Tests 04/19/19 04:00 Laboratory Tests 04/19/19 04:00 VOLODYMYR HESS MD Apr 19, 2019 15:52
[2019-04-19] MEDS ORDERED: POTASSIUM CHLORIDE 20 MEQ TABLET.ER. PO ONE (16:00)
[2019-04-19] MEDS: ACETAMINOPHEN 325 MG TABLET. PO PRN (16:40)
--- NOTE | 2019-04-19 16:45 | NUR ---
Pt called staff into room, states that she is freezing and trembling. Pt with fever of 101.1, BP 156/78 HR 104 BG 255. PRN tylenol given, pt had trouble swallowing in applesauce up at 90 degree, coughed with thickened water, pt NPO until Dr. Fontenot notified. Dr. Fontenot paged about Change in condition.
[2019-04-19] MEDS: MEROPENEM 500 MG in IV NORMAL SALINE 50ML 50 ML IV SCH ×2 (17:58→23:47)
[2019-04-19 19:15] VITALS: BP 137/70
--- NOTE | 2019-04-19 21:47 | RAD ---
Exam: Chest one view INDICATION: Increased difficulty swallowing TECHNIQUE: Frontal view of the chest Comparisons: 04/17/2019 FINDINGS: The cardiomediastinal silhouette and pulmonary vessels are within normal limits. The lung and pleural spaces are clear. IMPRESSION: No acute cardiopulmonary process. Electronically signed by: Lamar Mott MD (04/19/2019 9:44 PM) [facility]
[2019-04-19 22:30] VITALS: BP 142/90
[2019-04-20 02:40] VITALS: BP 150/61
[2019-04-20] MEDS: IV NORMAL SALINE 1000ML BAG 1,000 ML IV SCH (03:24)
[2019-04-20 04:56] LABS: BASO % 0 % (0-3); EOS # 0.1 x10^3/uL (0.0-0.7); EOS % 1 % (0-3); HEMATOCRIT 36.8 % (36.0-47.0); HEMOGLOBIN 12.7 g/dL (12.0-15.5); LYMPH # 0.8 x10^3/uL (1.0-4.8); LYMPH % 7 % (24-48); MEAN CORPUSCULAR HEMOGLOBIN 30 pg (25-35); MEAN CORPUSCULAR HGB CONC 35 g/dL (31-37); MEAN CORPUSCULAR VOLUME 88 fL (79-100); MONO # 0.6 x10^3/uL (0.0-1.1); MONO % 5 % (0-9); NEUT # 9.1 x10^3/uL (1.8-7.7); NEUT % 86 % (31-73); PLATELET COUNT 75 x10^3/uL (140-400); RED BLOOD COUNT 4.19 x10^6/uL (3.50-5.40); RED CELL DISTRIBUTION WIDTH 15.2 % (11.5-14.5); WHITE BLOOD COUNT 10.6 x10^3/uL (4.0-11.0)
[2019-04-20 05:11] LABS: ALBUMIN 1.4 g/dL (3.4-5.0); ALBUMIN/GLOBULIN RATIO 0.5 (1.0-1.7); CALCIUM 7.4 mg/dL (8.5-10.1); CREATININE 0.9 mg/dL (0.6-1.0); GFR 59.8; POTASSIUM 3.5 mmol/L (3.5-5.1); TOTAL BILIRUBIN 8.9 mg/dL (0.2-1.0); TOTAL PROTEIN 4.2 g/dL (6.4-8.2)
[2019-04-20] MEDS: MEROPENEM 500 MG in IV NORMAL SALINE 50ML 50 ML IV SCH ×4 (06:02→23:23)
[2019-04-20 07:00] VITALS: BP 159/91
[2019-04-20] MEDS: PANTOPRAZOLE 40 MG TABLET.DR. PO SCH (07:28)
[2019-04-20] MEDS: INSULIN LISPRO 300 UNITS/3 ML VIAL. SQ SCH ×3 (08:00→17:00)
--- NOTE | 2019-04-20 09:59 | PDOC ---
Infectious Disease Note Subjective Subjective c/o thirst and dry mouth NPO + BM 2L O2 Denies SOA, CP, N/V/D Fever Tmax 101.1 yesterday afternoon ROS ROS per HPI Vital Sign Vital Signs Vital Signs Date Time Temp Pulse Resp B/P (MAP) Pulse Ox O2 Delivery O2 Flow Rate FiO2 04/20/19 08:00 Nasal Cannula 2.0 04/20/19 07:00 98.2 78 20 159/91 (113) 97 98.2 Physical Exam PHYSICAL EXAM GENERAL: Propped up in bed, alert, NAD HENT: Oral cavity very dry. + dentures NECK: Supple LUNGS: Clear CV: S1, S2 ABDOMEN: Soft and nontender EXT: No gross edema or cyanosis SKIN: warm to touch. 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 PIV Labs Lab Laboratory Tests Test 04/19/19 12:05 04/19/19 16:39 04/19/19 20:30 04/20/19 03:45 Glucose (Fingerstick) 219 mg/dL (70-99) 255 mg/dL (70-99) 177 mg/dL (70-99) White Blood Count 10.6 x10^3/uL (4.0-11.0) Red Blood Count 4.19 x10^6/uL (3.50-5.40) Hemoglobin 12.7 g/dL (12.0-15.5) Hematocrit 36.8 % (36.0-47.0) Mean Corpuscular Volume 88 fL (79-100) Mean Corpuscular Hemoglobin 30 pg (25-35) Mean Corpuscular Hemoglobin Concent 35 g/dL (31-37) Red Cell Distribution Width 15.2 % (11.5-14.5) Platelet Count 75 x10^3/uL (140-400) Neutrophils (%) (Auto) 86 % (31-73) Lymphocytes (%) (Auto) 7 % (24-48) Monocytes (%) (Auto) 5 % (0-9) Eosinophils (%) (Auto) 1 % (0-3) Basophils (%) (Auto) 0 % (0-3) Neutrophils # (Auto) 9.1 x10^3/uL (1.8-7.7) Lymphocytes # (Auto) 0.8 x10^3/uL (1.0-4.8) Monocytes # (Auto) 0.6 x10^3/uL (0.0-1.1) Eosinophils # (Auto) 0.1 x10^3/uL (0.0-0.7) Basophils # (Auto) 0.0 x10^3/uL (0.0-0.2) Sodium Level 137 mmol/L (136-145) Potassium Level 3.5 mmol/L (3.5-5.1) Chloride Level 101 mmol/L (98-107) Carbon Dioxide Level 27 mmol/L (21-32) Anion Gap 9 (6-14) Blood Urea Nitrogen 28 mg/dL (7-20) Creatinine 0.9 mg/dL (0.6-1.0) Estimated GFR (Cockcroft-Gault) 59.8 BUN/Creatinine Ratio 31 (6-20) Glucose Level 181 mg/dL (70-99) Calcium Level 7.4 mg/dL (8.5-10.1) Total Bilirubin 8.9 mg/dL (0.2-1.0) Aspartate Amino Transf (AST/SGOT) 65 U/L (15-37) Alanine Aminotransferase (ALT/SGPT) 59 U/L (14-59) Alkaline Phosphatase 397 U/L (46-116) Total Protein 4.2 g/dL (6.4-8.2) Albumin 1.4 g/dL (3.4-5.0) Albumin/Globulin Ratio 0.5 (1.0-1.7) Test 04/20/19 07:34 Glucose (Fingerstick) 157 mg/dL (70-99) CXR, 04/19. No acute cardiopulmonary process. Micro 04/19. BlOOD CULTURE Preliminary NO GROWTH AFTER 1 DAY 04/17. BLOOD CULTURE Final GRAM NEGATIVE RODS IN 4 OF 4 BOTTLES(BOTH BOTTLES THIS SET). TWO SETS WERE DRAWN. THE RESULT WAS CALLED TO CLARISSA POTTS(2N)ON 04/18/19 AT 1054 BY Mar FRAUSTO. 04/17. URINE CULTURE RES 1 Final Lactobacillus species Objective Assessment GNR sepsis from 04/17. ID still pending Fever abx chged to merrem 04/19 Leukocytosis better PENICILLIN ALLERGY WITH NAUSEA, VOMITING. Tolerated cefepime Pyuria. The patient does not have any urinary symptoms. UC lactobacillus Abnormal LFTs with abnormal CT. pancreatic lesion, CA 19-9 is 114 Thrombocytopenia Dysphagia - NPO Acute kidney injury - better Hyponatremia - corrected Nausea, vomiting, coffee ground emesis, diarrhea - better Uncontrolled diabetes mellitus. Off medications Pulmonary infiltrate, now clear High proBNP. Protein-calorie malnutrition. Lactic acidosis - better H/o Dementia Plan Plan of Care cont merrem (04/19) Awaiting GNR ID/susceptibilities GI following Maintain aspiration precaution. Continue supportive care. D/w nursing States feels better today Await further GI w/u F/u platelets Attending Co-Sign Attending Co-Sign The patient was seen and interviewed as well as examined at the bedside. The chart was reviewed. The case was discussed. Agree with the plan of care. KESHIA ENGEL APRN Apr 20, 2019 09:59 MARILEE DO MD Apr 20, 2019 15:06
--- NOTE | 2019-04-20 10:50 | PDOC ---
GENERAL General: vss with tmax 101.1 yesterday pm and another set blood cultures drawn that are negative to date. no ID on gram negative rods on blood cultures yet. chest clear, heart irregular, abdomen with ongoing ruq tenderness. platelet decreased to 75K this am, wbc 10.6 with decreased left shift, alk phos higher yet at 397 this am, bili stable at 8.9, K+ up to 3.5, on iv fluids and will change to procalamine as npo due to dysphagia. awaiting surgical opinion. VITAL SIGNS/I&O Vital Signs/I&O: Vital Signs Date Time Temp Pulse Resp B/P (MAP) Pulse Ox O2 Delivery O2 Flow Rate FiO2 04/20/19 08:00 Nasal Cannula 2.0 04/20/19 07:00 98.2 78 20 159/91 (113) 97 98.2 I & O 04/19/19 04/19/19 04/20/19 15:00 23:00 07:00 Intake Total 720 ml 0 ml Output Total 700 ml Balance 720 ml -700 ml ALLERGIES Allergies: Allergies Coded Allergies Type Severity Reaction Last Updated Verified Penicillins Allergy Intermediate 04/17/19 Yes MEDS Medications: Current Medications Medications (Trade) Dose Ordered Sig/Almaz Route PRN Reason Start Time Stop Time Status Last Admin Dose Admin Sodium Chloride 1,000 ml @ 75 mls/hr [id number] IV 04/19/19 13:00 04/20/19 03:24 Potassium Chloride (Klor-Con) 20 meq 1X ONCE PO 04/19/19 16:00 04/19/19 16:01 DC 04/19/19 16:40 Meropenem 500 mg/ Sodium Chloride 50 ml @ 100 mls/hr Q6HRS IV 04/19/19 18:00 04/20/19 06:02 LAB Lab: Laboratory Tests Test 04/19/19 12:05 04/19/19 16:39 04/19/19 20:30 04/20/19 03:45 Glucose (Fingerstick) 219 mg/dL (70-99) H 255 mg/dL (70-99) H 177 mg/dL (70-99) H White Blood Count 10.6 x10^3/uL (4.0-11.0) Red Blood Count 4.19 x10^6/uL (3.50-5.40) Hemoglobin 12.7 g/dL (12.0-15.5) Hematocrit 36.8 % (36.0-47.0) Mean Corpuscular Volume 88 fL (79-100) Mean Corpuscular Hemoglobin 30 pg (25-35) Mean Corpuscular Hemoglobin Concent 35 g/dL (31-37) Red Cell Distribution Width 15.2 % (11.5-14.5) H Platelet Count 75 x10^3/uL (140-400) L Neutrophils (%) (Auto) 86 % (31-73) H Lymphocytes (%) (Auto) 7 % (24-48) L Monocytes (%) (Auto) 5 % (0-9) Eosinophils (%) (Auto) 1 % (0-3) Basophils (%) (Auto) 0 % (0-3) Neutrophils # (Auto) 9.1 x10^3/uL (1.8-7.7) H Lymphocytes # (Auto) 0.8 x10^3/uL (1.0-4.8) L Monocytes # (Auto) 0.6 x10^3/uL (0.0-1.1) Eosinophils # (Auto) 0.1 x10^3/uL (0.0-0.7) Basophils # (Auto) 0.0 x10^3/uL (0.0-0.2) Sodium Level 137 mmol/L (136-145) Potassium Level 3.5 mmol/L (3.5-5.1) Chloride Level 101 mmol/L (98-107) Carbon Dioxide Level 27 mmol/L (21-32) Anion Gap 9 (6-14) Blood Urea Nitrogen 28 mg/dL (7-20) H Creatinine 0.9 mg/dL (0.6-1.0) Estimated GFR (Cockcroft-Gault) 59.8 BUN/Creatinine Ratio 31 (6-20) H Glucose Level 181 mg/dL (70-99) H Calcium Level 7.4 mg/dL (8.5-10.1) L Total Bilirubin 8.9 mg/dL (0.2-1.0) H Aspartate Amino Transferase (AST) 65 U/L (15-37) H Alanine Aminotransferase (ALT) 59 U/L (14-59) Alkaline Phosphatase 397 U/L (46-116) H Total Protein 4.2 g/dL (6.4-8.2) L Albumin 1.4 g/dL (3.4-5.0) L Albumin/Globulin Ratio 0.5 (1.0-1.7) L Test 04/20/19 07:34 Glucose (Fingerstick) 157 mg/dL (70-99) H Laboratory Tests 04/20/19 03:45 Laboratory Tests 04/20/19 03:45 VOLODYMYR HESS MD Apr 20, 2019 10:50
[2019-04-20 11:00] VITALS: BP 142/58
[2019-04-20] MEDS ORDERED: BARIUM SULFATE 40% (APPLE) 148 GM PWD. PO ONE (11:30)
--- NOTE | 2019-04-20 11:36 | NUR ---
Bedside Swallow Evaluation completed. Please refer to full report in intervention section for additional information. Impression: Mild-moderate pharyngeal dysphagia w/ inconsistent subtle to overt s/s aspiration observed. While pt demonstrated coughing prior to PO trials, the frequency and intensity of coughing increased w/ minimal PO presentation and wet phonation was observed at times. Pt appears at high risk of aspiration at this time. Videoswallow evaluation is recommended to further assess pharyngeal swallow and safety to PO intake. Recommendations: NPO, frequent oral care, videoswallow 04/21/19, ST f/u for dysphagia.
[2019-04-20] MEDS: AMINO AC 3%/ELECTROLYTE/GLYCER 1,000 ML IV SCH ×2 (11:45→23:23)
--- NOTE | 2019-04-20 12:25 | PDOC ---
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 On Abx Urine reddish (micr hematuria+, Bili elevated ),Per ID and pcp Vomiting/"coffee-ground emesis- GI following Hgb normal abnormal LFTs, plus elevated Bili Focal enlargement of the neck of the pancreas, mild distention of the gallbladder w/ mild pericholecystic inflammation, indeterminate subcentimeter liver nodule Per GI H/o dementia Will sign off COMMENT/RELEVANT DATA Meds Current Medications Medications (Trade) Dose Ordered Sig/Almaz Start Time Stop Time Status Last Admin Dose Admin Acetaminophen (Tylenol) 650 mg PRN Q6HRS PRN 04/17/19 13:15 04/19/19 16:40 650 MG Amino Acids/ Glycerin/ Electrolytes 1,000 ml @ 80 mls/hr [id number] 04/20/19 11:30 04/20/19 11:45 80 MLS/HR Barium Sulfate (Varibar Thin Liquid Apple) 148 gm 1X ONCE 04/20/19 11:30 04/20/19 11:32 DC Cefepime HCl (Maxipime) 2 gm Q24H 04/19/19 09:00 04/19/19 17:23 DC 04/19/19 09:50 2 GM Ceftriaxone Sodium (Rocephin) 1 gm 1X ONCE 04/17/19 10:30 04/17/19 11:04 DC 04/17/19 11:09 1 GM Dextrose (Dextrose 50%-Water Syringe) 12.5 gm PRN Q15MIN PRN 04/17/19 13:15 Insulin Human Lispro (HumaLOG) 0-7 UNITS TIDWMEALS 04/17/19 17:00 04/19/19 18:01 3 UNITS Insulin Human Regular (HumuLIN R VIAL) 10 unit 1X ONCE 04/17/19 09:45 04/17/19 09:46 DC 04/17/19 09:47 10 UNIT Meropenem 500 mg/ Sodium Chloride 50 ml @ 100 mls/hr Q6HRS 04/19/19 18:00 04/20/19 06:02 100 MLS/HR Ondansetron HCl (Zofran) 4 mg PRN Q8HRS PRN 04/17/19 11:30 04/17/19 18:00 DC Pantoprazole Sodium (PROTONIX VIAL for IV PUSH) 40 mg DAILYAC 04/18/19 07:30 04/18/19 12:57 DC 04/18/19 08:56 40 MG Pantoprazole Sodium (Protonix) 40 mg DAILYAC 04/19/19 07:30 04/19/19 09:44 40 MG Potassium Chloride (Klor-Con) 20 meq 1X ONCE 04/19/19 16:00 04/19/19 16:01 DC 04/19/19 16:40 20 MEQ Sodium Chloride 1,000 ml @ 75 mls/hr [id number] 04/19/19 13:00 04/20/19 10:52 DC 04/20/19 03:24 75 MLS/HR Vancomycin HCl 250 ml @ 250 mls/hr 1X ONCE 04/17/19 10:30 04/17/19 11:29 DC 04/17/19 11:10 250 MLS/HR Lab Laboratory Tests Test 04/19/19 16:39 04/19/19 20:30 04/20/19 03:45 04/20/19 07:34 Glucose (Fingerstick) 255 mg/dL (70-99) 177 mg/dL (70-99) 157 mg/dL (70-99) White Blood Count 10.6 x10^3/uL (4.0-11.0) Red Blood Count 4.19 x10^6/uL (3.50-5.40) Hemoglobin 12.7 g/dL (12.0-15.5) Hematocrit 36.8 % (36.0-47.0) Mean Corpuscular Volume 88 fL (79-100) Mean Corpuscular Hemoglobin 30 pg (25-35) Mean Corpuscular Hemoglobin Concent 35 g/dL (31-37) Red Cell Distribution Width 15.2 % (11.5-14.5) Platelet Count 75 x10^3/uL (140-400) Neutrophils (%) (Auto) 86 % (31-73) Lymphocytes (%) (Auto) 7 % (24-48) Monocytes (%) (Auto) 5 % (0-9) Eosinophils (%) (Auto) 1 % (0-3) Basophils (%) (Auto) 0 % (0-3) Neutrophils # (Auto) 9.1 x10^3/uL (1.8-7.7) Lymphocytes # (Auto) 0.8 x10^3/uL (1.0-4.8) Monocytes # (Auto) 0.6 x10^3/uL (0.0-1.1) Eosinophils # (Auto) 0.1 x10^3/uL (0.0-0.7) Basophils # (Auto) 0.0 x10^3/uL (0.0-0.2) Sodium Level 137 mmol/L (136-145) Potassium Level 3.5 mmol/L (3.5-5.1) Chloride Level 101 mmol/L (98-107) Carbon Dioxide Level 27 mmol/L (21-32) Anion Gap 9 (6-14) Blood Urea Nitrogen 28 mg/dL (7-20) Creatinine 0.9 mg/dL (0.6-1.0) Estimated GFR (Cockcroft-Gault) 59.8 BUN/Creatinine Ratio 31 (6-20) Glucose Level 181 mg/dL (70-99) Calcium Level 7.4 mg/dL (8.5-10.1) Total Bilirubin 8.9 mg/dL (0.2-1.0) Aspartate Amino Transf (AST/SGOT) 65 U/L (15-37) Alanine Aminotransferase (ALT/SGPT) 59 U/L (14-59) Alkaline Phosphatase 397 U/L (46-116) Total Protein 4.2 g/dL (6.4-8.2) Albumin 1.4 g/dL (3.4-5.0) Albumin/Globulin Ratio 0.5 (1.0-1.7) Test 04/20/19 11:43 Glucose (Fingerstick) 174 mg/dL (70-99) Results All relevant outside records, renal labs, imaging studies, telemetry/EKG's were reviewed. THUY FARLEY MD Apr 20, 2019 12:25
--- NOTE | 2019-04-20 13:08 | PDOC ---
G I PROGRESS NOTE Reason for Follow-up Jaundice Subjective Without new complaints Physical Exam Lungs clear CV S1 S2 ABD +BS,soft, non tender Review of Relevant I have reviewed the following items jose (where applicable) has been applied. Labs Laboratory Tests Test 04/18/19 16:22 04/18/19 21:07 04/19/19 04:00 04/19/19 07:26 Glucose (Fingerstick) 236 mg/dL (70-99) 192 mg/dL (70-99) 166 mg/dL (70-99) White Blood Count 8.5 x10^3/uL (4.0-11.0) Red Blood Count 4.32 x10^6/uL (3.50-5.40) Hemoglobin 13.1 g/dL (12.0-15.5) Hematocrit 38.1 % (36.0-47.0) Mean Corpuscular Volume 88 fL (79-100) Mean Corpuscular Hemoglobin 30 pg (25-35) Mean Corpuscular Hemoglobin Concent 34 g/dL (31-37) Red Cell Distribution Width 15.1 % (11.5-14.5) Platelet Count 85 x10^3/uL (140-400) Neutrophils (%) (Auto) 90 % (31-73) Lymphocytes (%) (Auto) 4 % (24-48) Monocytes (%) (Auto) 6 % (0-9) Eosinophils (%) (Auto) 1 % (0-3) Basophils (%) (Auto) 0 % (0-3) Neutrophils # (Auto) 7.6 x10^3/uL (1.8-7.7) Lymphocytes # (Auto) 0.3 x10^3/uL (1.0-4.8) Monocytes # (Auto) 0.5 x10^3/uL (0.0-1.1) Eosinophils # (Auto) 0.1 x10^3/uL (0.0-0.7) Basophils # (Auto) 0.0 x10^3/uL (0.0-0.2) Sodium Level 135 mmol/L (136-145) Potassium Level 3.3 mmol/L (3.5-5.1) Chloride Level 99 mmol/L (98-107) Carbon Dioxide Level 27 mmol/L (21-32) Anion Gap 9 (6-14) Blood Urea Nitrogen 36 mg/dL (7-20) Creatinine 1.0 mg/dL (0.6-1.0) Estimated GFR (Cockcroft-Gault) 53.0 BUN/Creatinine Ratio 36 (6-20) Glucose Level 194 mg/dL (70-99) Calcium Level 8.5 mg/dL (8.5-10.1) Total Bilirubin 8.9 mg/dL (0.2-1.0) Aspartate Amino Transf (AST/SGOT) 57 U/L (15-37) Alanine Aminotransferase (ALT/SGPT) 61 U/L (14-59) Alkaline Phosphatase 340 U/L (46-116) Total Protein 5.4 g/dL (6.4-8.2) Albumin 1.6 g/dL (3.4-5.0) Albumin/Globulin Ratio 0.4 (1.0-1.7) Test 04/19/19 12:05 04/19/19 16:39 04/19/19 20:30 04/20/19 03:45 Glucose (Fingerstick) 219 mg/dL (70-99) 255 mg/dL (70-99) 177 mg/dL (70-99) White Blood Count 10.6 x10^3/uL (4.0-11.0) Red Blood Count 4.19 x10^6/uL (3.50-5.40) Hemoglobin 12.7 g/dL (12.0-15.5) Hematocrit 36.8 % (36.0-47.0) Mean Corpuscular Volume 88 fL (79-100) Mean Corpuscular Hemoglobin 30 pg (25-35) Mean Corpuscular Hemoglobin Concent 35 g/dL (31-37) Red Cell Distribution Width 15.2 % (11.5-14.5) Platelet Count 75 x10^3/uL (140-400) Neutrophils (%) (Auto) 86 % (31-73) Lymphocytes (%) (Auto) 7 % (24-48) Monocytes (%) (Auto) 5 % (0-9) Eosinophils (%) (Auto) 1 % (0-3) Basophils (%) (Auto) 0 % (0-3) Neutrophils # (Auto) 9.1 x10^3/uL (1.8-7.7) Lymphocytes # (Auto) 0.8 x10^3/uL (1.0-4.8) Monocytes # (Auto) 0.6 x10^3/uL (0.0-1.1) Eosinophils # (Auto) 0.1 x10^3/uL (0.0-0.7) Basophils # (Auto) 0.0 x10^3/uL (0.0-0.2) Sodium Level 137 mmol/L (136-145) Potassium Level 3.5 mmol/L (3.5-5.1) Chloride Level 101 mmol/L (98-107) Carbon Dioxide Level 27 mmol/L (21-32) Anion Gap 9 (6-14) Blood Urea Nitrogen 28 mg/dL (7-20) Creatinine 0.9 mg/dL (0.6-1.0) Estimated GFR (Cockcroft-Gault) 59.8 BUN/Creatinine Ratio 31 (6-20) Glucose Level 181 mg/dL (70-99) Calcium Level 7.4 mg/dL (8.5-10.1) Total Bilirubin 8.9 mg/dL (0.2-1.0) Aspartate Amino Transf (AST/SGOT) 65 U/L (15-37) Alanine Aminotransferase (ALT/SGPT) 59 U/L (14-59) Alkaline Phosphatase 397 U/L (46-116) Total Protein 4.2 g/dL (6.4-8.2) Albumin 1.4 g/dL (3.4-5.0) Albumin/Globulin Ratio 0.5 (1.0-1.7) Test 04/20/19 07:34 04/20/19 11:43 Glucose (Fingerstick) 157 mg/dL (70-99) 174 mg/dL (70-99) Laboratory Tests Test 04/19/19 16:39 04/19/19 20:30 04/20/19 03:45 04/20/19 07:34 Glucose (Fingerstick) 255 mg/dL (70-99) 177 mg/dL (70-99) 157 mg/dL (70-99) White Blood Count 10.6 x10^3/uL (4.0-11.0) Red Blood Count 4.19 x10^6/uL (3.50-5.40) Hemoglobin 12.7 g/dL (12.0-15.5) Hematocrit 36.8 % (36.0-47.0) Mean Corpuscular Volume 88 fL (79-100) Mean Corpuscular Hemoglobin 30 pg (25-35) Mean Corpuscular Hemoglobin Concent 35 g/dL (31-37) Red Cell Distribution Width 15.2 % (11.5-14.5) Platelet Count 75 x10^3/uL (140-400) Neutrophils (%) (Auto) 86 % (31-73) Lymphocytes (%) (Auto) 7 % (24-48) Monocytes (%) (Auto) 5 % (0-9) Eosinophils (%) (Auto) 1 % (0-3) Basophils (%) (Auto) 0 % (0-3) Neutrophils # (Auto) 9.1 x10^3/uL (1.8-7.7) Lymphocytes # (Auto) 0.8 x10^3/uL (1.0-4.8) Monocytes # (Auto) 0.6 x10^3/uL (0.0-1.1) Eosinophils # (Auto) 0.1 x10^3/uL (0.0-0.7) Basophils # (Auto) 0.0 x10^3/uL (0.0-0.2) Sodium Level 137 mmol/L (136-145) Potassium Level 3.5 mmol/L (3.5-5.1) Chloride Level 101 mmol/L (98-107) Carbon Dioxide Level 27 mmol/L (21-32) Anion Gap 9 (6-14) Blood Urea Nitrogen 28 mg/dL (7-20) Creatinine 0.9 mg/dL (0.6-1.0) Estimated GFR (Cockcroft-Gault) 59.8 BUN/Creatinine Ratio 31 (6-20) Glucose Level 181 mg/dL (70-99) Calcium Level 7.4 mg/dL (8.5-10.1) Total Bilirubin 8.9 mg/dL (0.2-1.0) Aspartate Amino Transf (AST/SGOT) 65 U/L (15-37) Alanine Aminotransferase (ALT/SGPT) 59 U/L (14-59) Alkaline Phosphatase 397 U/L (46-116) Total Protein 4.2 g/dL (6.4-8.2) Albumin 1.4 g/dL (3.4-5.0) Albumin/Globulin Ratio 0.5 (1.0-1.7) Test 04/20/19 11:43 Glucose (Fingerstick) 174 mg/dL (70-99) Microbiology 04/19/19 Blood Culture - Preliminary, Resulted NO GROWTH AFTER 1 DAY 04/17/19 Urine Culture - Final, Complete 04/17/19 Urine Culture Result 1 (SUMIT) - Final, Complete Medications Current Medications Sodium Chloride 1,000 ml @ 1,000 mls/hr 1X ONCE IV Last administered on 04/17/19at 09:35; Start 04/17/19 at 09:15; Stop 04/17/19 at 10:14; Status DC Sodium Chloride 1,000 ml @ 1,000 mls/hr 1X ONCE IV Last administered on 04/17/19at 09:35; Start 04/17/19 at 09:15; Stop 04/17/19 at 10:14; Status DC Insulin Human Regular (HumuLIN R VIAL) 10 unit 1X ONCE IV Last administered on 04/17/19at 09:47; Start 04/17/19 at 09:45; Stop 04/17/19 at 09:46; Status DC Ceftriaxone Sodium (Rocephin) 1 gm 1X ONCE IVP Last administered on 04/17/19at 11:09; Start 04/17/19 at 10:30; Stop 04/17/19 at 11:04; Status DC Vancomycin HCl 250 ml @ 250 mls/hr 1X ONCE IV Last administered on 04/17/19at 11:10; Start 04/17/19 at 10:30; Stop 04/17/19 at 11:29; Status DC Ondansetron HCl (Zofran) 4 mg PRN Q8HRS PRN IV NAUSEA/VOMITING; Start 04/17/19 at 11:30; Stop 04/17/19 at 18:00; Status DC Sodium Chloride 1,000 ml @ 150 mls/hr Q6H40M IV Last administered on 04/18/19at 14:33; Start 04/17/19 at 11:27; Stop 04/18/19 at 11:26; Status DC Insulin Human Lispro (HumaLOG) 0-7 UNITS TIDWMEALS SQ Last administered on 04/20/19at 12:34; Start 04/17/19 at 17:00 Dextrose (Dextrose 50%-Water Syringe) 12.5 gm PRN Q15MIN PRN IV SEE COMMENTS; Start 04/17/19 at 13:15 Acetaminophen (Tylenol) 650 mg PRN Q6HRS PRN PO pain Last administered on 1 06/20/18at 16:40; Start 04/17/19 at 13:15 Cefepime HCl (Maxipime) 1 gm DAILY IVP Last administered on 04/18/19at 08:56; Start 04/18/19 at 09:00; Stop 04/18/19 at 11:04; Status DC Pantoprazole Sodium (PROTONIX VIAL for IV PUSH) 40 mg DAILYAC IVP Last admini stered on 04/18/19at 08:56; Start 04/18/19 at 07:30; Stop 04/18/19 at 12:57; Status DC Cefepime HCl (Maxipime) 1 gm 1X ONCE IVP Last administered on 04/18/19at 11:30; Start 04/18/19 at 12:00; Stop 04/18/19 at 12:01; Status DC Cefepime HCl (Maxipime) 2 gm Q24H IVP Last administered on 04/19/19at 09:50; Start 04/19/19 at 09:00; Stop 04/19/19 at 17:23; Status DC Pantoprazole Sodium (Protonix) 40 mg DAILYAC PO Last administered on 04/19/19at 09:44; Start 04/19/19 at 07:30 Sodium Chloride 1,000 ml @ 75 mls/hr [id number] IV Last administered on 04/20/19at 03:24; Start 04/19/19 at 13:00; Stop 04/20/19 at 10:52; Status DC Potassium Chloride (Klor-Con) 20 meq 1X ONCE PO Last administered on 04/19/19at 16:40; Start 04/19/19 at 16:00; Stop 04/19/19 at 16:01; Status DC Meropenem 500 mg/ Sodium Chloride 50 ml @ 100 mls/hr Q6HRS IV Last administered on 04/20/19at 12:29; Start 04/19/19 at 18:00 Amino Acids/ Glycerin/ Electrolytes 1,000 ml @ 80 mls/hr [id number] IV Last administered on 04/20/19at 11:45; Start 04/20/19 at 11:30 Barium Sulfate (Varibar Thin Liquid Apple) 148 gm 1X ONCE PO ; Start 04/20/19 at 11:30; Stop 04/20/19 at 11:32; Status DC Active Scripts Active Reported Lisinopril 10 Mg Tablet 1 Tab PO DAILY Amlodipine Besylate 10 Mg Tablet 10 Mg PO DAILY Vitals/I & O Vital Sign - Last 24 Hours 04/19/19 04/19/19 04/19/19 04/19/19 15:00 16:45 19:15 19:50 Temp 98.5 101.1 98.3 98.5 101.1 98.3 Pulse 78 81 Resp 20 20 B/P (MAP) 138/84 (102) 137/70 (92) Pulse Ox 95 96 O2 Delivery Nasal Cannula Nasal Cannula Nasal Cannula O2 Flow Rate 2.0 2.0 2.0 04/19/19 04/20/19 04/20/19 04/20/19 22:30 02:40 07:00 08:00 Temp 98.2 98.1 98.2 98.2 98.1 98.2 Pulse 108 83 78 Resp 24 22 20 B/P (MAP) 142/90 (107) 150/61 (90) 159/91 (113) Pulse Ox 92 93 97 O2 Delivery Nasal Cannula Nasal Cannula Nasal Cannula Nasal Cannula O2 Flow Rate 2.0 2.0 2.0 2.0 04/20/19 11:00 Temp 98.1 98.1 Pulse 77 Resp 18 B/P (MAP) 142/58 (86) Pulse Ox 97 O2 Delivery Nasal Cannula O2 Flow Rate 2.0 Intake and Output 04/19/19 04/19/19 04/20/19 15:00 23:00 07:00 Intake Total 720 ml 0 ml Output Total 700 ml Balance 720 ml -700 ml Problem List Problems Medical Problems: (1) Abnormal CT of the abdomen Status: Acute (2) Atrial fibrillation Status: Acute (3) Elevated liver function tests Status: Acute (4) Hyperglycemia Status: Acute (5) Hypoalbuminemia Status: Acute (6) Jaundice Status: Acute (7) Nausea and vomiting Status: Acute (8) Renal insufficiency Status: Acute (9) Sepsis Status: Acute (10) Uncontrolled diabetes mellitus Status: Acute (11) Urinary tract infection Status: Acute Assessment Jaundice- with abno CT scan, obstruction with pancreatic mass and/or retained st one to be further assessed with MRCP in am. ERVIN BOONE MD Apr 20, 2019 13:08
[2019-04-20 15:00] VITALS: BP 147/57
[2019-04-20 19:35] VITALS: BP 164/59
[2019-04-20 23:00] VITALS: BP 175/74
[2019-04-21 03:45] VITALS: BP 165/67
[2019-04-21 04:35] LABS: BASO % 0 % (0-3); EOS # 0.1 x10^3/uL (0.0-0.7); EOS % 1 % (0-3); HEMOGLOBIN 12.7 g/dL (12.0-15.5); LYMPH # 0.8 x10^3/uL (1.0-4.8); LYMPH % 9 % (24-48); MEAN CORPUSCULAR HEMOGLOBIN 30 pg (25-35); MEAN CORPUSCULAR HGB CONC 34 g/dL (31-37); MEAN CORPUSCULAR VOLUME 88 fL (79-100); MONO # 0.7 x10^3/uL (0.0-1.1); MONO % 8 % (0-9); NEUT # 7.7 x10^3/uL (1.8-7.7); NEUT % 82 % (31-73); PLATELET COUNT 92 x10^3/uL (140-400); RED BLOOD COUNT 4.22 x10^6/uL (3.50-5.40); RED CELL DISTRIBUTION WIDTH 14.8 % (11.5-14.5); WHITE BLOOD COUNT 9.3 x10^3/uL (4.0-11.0)
[2019-04-21 04:57] LABS: ALBUMIN 1.3 g/dL (3.4-5.0); ALBUMIN/GLOBULIN RATIO 0.3 (1.0-1.7); CALCIUM 8.1 mg/dL (8.5-10.1); CREATININE 0.7 mg/dL (0.6-1.0); GFR 79.9; POTASSIUM 3.4 mmol/L (3.5-5.1); TOTAL PROTEIN 5.2 g/dL (6.4-8.2)
[2019-04-21] MEDS: MEROPENEM 500 MG in IV NORMAL SALINE 50ML 50 ML IV SCH ×4 (06:09→23:44)
[2019-04-21 07:28] VITALS: BP 172/70
[2019-04-21] MEDS: PANTOPRAZOLE 40 MG TABLET.DR. PO SCH (07:30)
[2019-04-21] MEDS: INSULIN LISPRO 300 UNITS/3 ML VIAL. SQ SCH ×3 (08:00→17:00)
--- NOTE | 2019-04-21 08:04 | PDOC ---
GENERAL General: vss and afebrile. awake and alert and looks and feels better this am and requesting water. chest clear, heart same, abdomen soft and non tender this am. bili decreased to 4.0 and alk phos decreased. K+ 3.4 and replacement ordered. mrcp of abdomen today with surgical opinion. sugars better. still no ID on gram negative rods on blood cultures. VITAL SIGNS/I&O Vital Signs/I&O: Vital Signs Date Time Temp Pulse Resp B/P (MAP) Pulse Ox O2 Delivery O2 Flow Rate FiO2 04/21/19 07:28 97.8 87 20 172/70 (104) 95 Nasal Cannula 2.0 97.8 I & O 04/20/19 04/20/19 04/21/19 15:00 23:00 07:00 Intake Total 305 ml 640 ml 0 ml Output Total 700 ml 400 ml 900 ml Balance -395 ml 240 ml -900 ml ALLERGIES Allergies: Allergies Coded Allergies Type Severity Reaction Last Updated Verified Penicillins Allergy Intermediate 04/17/19 Yes MEDS Medications: Current Medications Medications (Trade) Dose Ordered Sig/Almaz Route PRN Reason Start Time Stop Time Status Last Admin Dose Admin Amino Acids/ Glycerin/ Electrolytes 1,000 ml @ 80 mls/hr [id number] IV 04/20/19 11:30 04/20/19 23:23 LAB Lab: Laboratory Tests Test 04/20/19 11:43 04/20/19 17:00 04/20/19 20:36 04/21/19 03:50 Glucose (Fingerstick) 174 mg/dL (70-99) H 171 mg/dL (70-99) H 196 mg/dL (70-99) H White Blood Count 9.3 x10^3/uL (4.0-11.0) Red Blood Count 4.22 x10^6/uL (3.50-5.40) Hemoglobin 12.7 g/dL (12.0-15.5) Hematocrit 37.0 % (36.0-47.0) Mean Corpuscular Volume 88 fL (79-100) Mean Corpuscular Hemoglobin 30 pg (25-35) Mean Corpuscular Hemoglobin Concent 34 g/dL (31-37) Red Cell Distribution Width 14.8 % (11.5-14.5) H Platelet Count 92 x10^3/uL (140-400) L Neutrophils (%) (Auto) 82 % (31-73) H Lymphocytes (%) (Auto) 9 % (24-48) L Monocytes (%) (Auto) 8 % (0-9) Eosinophils (%) (Auto) 1 % (0-3) Basophils (%) (Auto) 0 % (0-3) Neutrophils # (Auto) 7.7 x10^3/uL (1.8-7.7) Lymphocytes # (Auto) 0.8 x10^3/uL (1.0-4.8) L Monocytes # (Auto) 0.7 x10^3/uL (0.0-1.1) Eosinophils # (Auto) 0.1 x10^3/uL (0.0-0.7) Basophils # (Auto) 0.0 x10^3/uL (0.0-0.2) Sodium Level 137 mmol/L (136-145) Potassium Level 3.4 mmol/L (3.5-5.1) L Chloride Level 102 mmol/L (98-107) Carbon Dioxide Level 28 mmol/L (21-32) Anion Gap 7 (6-14) Blood Urea Nitrogen 24 mg/dL (7-20) H Creatinine 0.7 mg/dL (0.6-1.0) Estimated GFR (Cockcroft-Gault) 79.9 BUN/Creatinine Ratio 34 (6-20) H Glucose Level 232 mg/dL (70-99) H Calcium Level 8.1 mg/dL (8.5-10.1) L Total Bilirubin 4.0 mg/dL (0.2-1.0) H Aspartate Amino Transferase (AST) 38 U/L (15-37) H Alanine Aminotransferase (ALT) 43 U/L (14-59) Alkaline Phosphatase 319 U/L (46-116) H Total Protein 5.2 g/dL (6.4-8.2) L Albumin 1.3 g/dL (3.4-5.0) L Albumin/Globulin Ratio 0.3 (1.0-1.7) L Test 04/21/19 07:39 Glucose (Fingerstick) 186 mg/dL (70-99) H Laboratory Tests 04/21/19 03:50 Laboratory Tests 04/21/19 03:50 VOLODYMYR HESS MD Apr 21, 2019 08:03
--- NOTE | 2019-04-21 08:24 | PDOC ---
Infectious Disease Note Subjective Subjective c/o thirst and huner NPO 2L O2 Denies SOA, CP, N/V/D ROS ROS o/w neg Vital Sign Vital Signs Vital Signs Date Time Temp Pulse Resp B/P (MAP) Pulse Ox O2 Delivery O2 Flow Rate FiO2 04/21/19 07:28 97.8 87 20 172/70 (104) 95 Nasal Cannula 2.0 97.8 Physical Exam PHYSICAL EXAM GENERAL: Propped up in bed, alert, NAD HENT: Oral cavity very dry. + dentures NECK: Supple LUNGS: Clear - on 02 CV: S1, S2 ABDOMEN: Soft and nontender EXT: No gross edema or cyanosis SKIN: warm to touch. 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 appropriately PIV Labs Lab Laboratory Tests Test 04/20/19 11:43 04/20/19 17:00 04/20/19 20:36 04/21/19 03:50 Glucose (Fingerstick) 174 mg/dL (70-99) 171 mg/dL (70-99) 196 mg/dL (70-99) White Blood Count 9.3 x10^3/uL (4.0-11.0) Red Blood Count 4.22 x10^6/uL (3.50-5.40) Hemoglobin 12.7 g/dL (12.0-15.5) Hematocrit 37.0 % (36.0-47.0) Mean Corpuscular Volume 88 fL (79-100) Mean Corpuscular Hemoglobin 30 pg (25-35) Mean Corpuscular Hemoglobin Concent 34 g/dL (31-37) Red Cell Distribution Width 14.8 % (11.5-14.5) Platelet Count 92 x10^3/uL (140-400) Neutrophils (%) (Auto) 82 % (31-73) Lymphocytes (%) (Auto) 9 % (24-48) Monocytes (%) (Auto) 8 % (0-9) Eosinophils (%) (Auto) 1 % (0-3) Basophils (%) (Auto) 0 % (0-3) Neutrophils # (Auto) 7.7 x10^3/uL (1.8-7.7) Lymphocytes # (Auto) 0.8 x10^3/uL (1.0-4.8) Monocytes # (Auto) 0.7 x10^3/uL (0.0-1.1) Eosinophils # (Auto) 0.1 x10^3/uL (0.0-0.7) Basophils # (Auto) 0.0 x10^3/uL (0.0-0.2) Sodium Level 137 mmol/L (136-145) Potassium Level 3.4 mmol/L (3.5-5.1) Chloride Level 102 mmol/L (98-107) Carbon Dioxide Level 28 mmol/L (21-32) Anion Gap 7 (6-14) Blood Urea Nitrogen 24 mg/dL (7-20) Creatinine 0.7 mg/dL (0.6-1.0) Estimated GFR (Cockcroft-Gault) 79.9 BUN/Creatinine Ratio 34 (6-20) Glucose Level 232 mg/dL (70-99) Calcium Level 8.1 mg/dL (8.5-10.1) Total Bilirubin 4.0 mg/dL (0.2-1.0) Aspartate Amino Transf (AST/SGOT) 38 U/L (15-37) Alanine Aminotransferase (ALT/SGPT) 43 U/L (14-59) Alkaline Phosphatase 319 U/L (46-116) Total Protein 5.2 g/dL (6.4-8.2) Albumin 1.3 g/dL (3.4-5.0) Albumin/Globulin Ratio 0.3 (1.0-1.7) Test 04/21/19 07:39 Glucose (Fingerstick) 186 mg/dL (70-99) Micro Microbiology 04/19/19 Blood Culture - Preliminary, Resulted NO GROWTH AFTER 2 DAYS 04/17/19 Urine Culture - Final, Complete 04/17/19 Urine Culture Result 1 (SUMIT) - Final, Complete Objective Assessment GNR sepsis from 04/17. ID still pending Fever abx chged to merrem 04/19 - better Leukocytosis better PENICILLIN ALLERGY WITH NAUSEA, VOMITING. Tolerated cefepime Pyuria. The patient does not have any urinary symptoms. UC lactobacillus Abnormal LFTs with abnormal CT. pancreatic lesion, CA 19-9 is 114 Thrombocytopenia Dysphagia - NPO Acute kidney injury - better Hyponatremia - corrected Nausea, vomiting, coffee ground emesis, diarrhea - better Uncontrolled diabetes mellitus. Off medications Pulmonary infiltrate, now clear High proBNP. Protein-calorie malnutrition. Lactic acidosis - better H/o Dementia Plan Plan of Care cont dewaynerem (04/19) Awaiting GNR ID/susceptibilities GI following MRCP ? today ? Swallow eval today Maintain aspiration precaution. Continue supportive care. D/w nursing MARILEE DO MD Apr 21, 2019 08:23
--- NOTE | 2019-04-21 09:04 | PDOC2 ---
WAYNEMARYLIN Myesha VOLCANOLOGIST 04/21/19 0904: CONSULT Date of Consult Date of Consult DATE: 04/21/19 TIME: 09:02 Reason for Consult Reason for Consult: abnormal Ct, jaundice Referring Physician Referring Physician: Dr Fontenot Identification/Chief Complaint Chief Complaint vomiting Source Source: Chart review, Patient History of Present Illness Reason for Visit: Admitted with vomiting, progressive weakness, abnormal CT, jaundice, elevated Ca 19-9 LFTS slowing improving no pain currently no complaints Past Medical History Cardiovascular: HTN CENTRAL NERVOUS SYSTEM: Dementia Endocrine: Diabetes Past Surgical History Past Surgical History: No pertinent history Family History Family History: Coronary Artery Disease Social History No ALCOHOL: none Drugs: None Current Problem List Problem List Problems Medical Problems: (1) Abnormal CT of the abdomen Status: Acute (2) Atrial fibrillation Status: Acute (3) Elevated liver function tests Status: Acute (4) Hyperglycemia Status: Acute (5) Hypoalbuminemia Status: Acute (6) Jaundice Status: Acute (7) Nausea and vomiting Status: Acute (8) Renal insufficiency Status: Acute (9) Sepsis Status: Acute (10) Uncontrolled diabetes mellitus Status: Acute (11) Urinary tract infection Status: Acute Current Medications Current Medications Current Medications Sodium Chloride 1,000 ml @ 1,000 mls/hr 1X ONCE IV Last administered on 04/17/19at 09:35; Start 04/17/19 at 09:15; Stop 04/17/19 at 10:14; Status DC Sodium Chloride 1,000 ml @ 1,000 mls/hr 1X ONCE IV Last administered on 1 06/18/18at 09:35; Start 04/17/19 at 09:15; Stop 04/17/19 at 10:14; Status DC Insulin Human Regular (HumuLIN R VIAL) 10 unit 1X ONCE IV Last administered on 04/17/19at 09:47; Start 04/17/19 at 09:45; Stop 04/17/19 at 09:46; Status DC Ceftriaxone Sodium (Rocephin) 1 gm 1X ONCE IVP Last administered on 04/17/19at 11:09; Start 04/17/19 at 10:30; Stop 04/17/19 at 11:04; Status DC Vancomycin HCl 250 ml @ 250 mls/hr 1X ONCE IV Last administered on 04/17/19at 11:10; Start 04/17/19 at 10:30; Stop 04/17/19 at 11:29; Status DC Ondansetron HCl (Zofran) 4 mg PRN Q8HRS PRN IV NAUSEA/VOMITING; Start 04/17/19 at 11:30; Stop 04/17/19 at 18:00; Status DC Sodium Chloride 1,000 ml @ 150 mls/hr Q6H40M IV Last administered on 04/18/19 14:33; Start 04/17/19 at 11:27; Stop 04/18/19 at 11:26; Status DC Insulin Human Lispro (HumaLOG) 0-7 UNITS TIDWMEALS SQ Last administered on 04/20/19 12:34; Start 04/17/19 at 17:00 Dextrose (Dextrose 50%-Water Syringe) 12.5 gm PRN Q15MIN PRN IV SEE COMMENTS; Start 04/17/19 at 13:15 Acetaminophen (Tylenol) 650 mg PRN Q6HRS PRN PO pain Last administered on 04/19/19 16:40; Start 04/17/19 at 13:15 Cefepime HCl (Maxipime) 1 gm DAILY IVP Last administered on 04/18/19 08:56; Start 04/18/19 at 09:00; Stop 04/18/19 at 11:04; Status DC Pantoprazole Sodium (PROTONIX VIAL for IV PUSH) 40 mg DAILYAC IVP Last administered on 04/18/19 08:56; Start 04/18/19 at 07:30; Stop 04/18/19 at 12:57; Status DC Cefepime HCl (Maxipime) 1 gm 1X ONCE IVP Last administered on 04/18/19 11:30; Start 04/18/19 at 12:00; Stop 04/18/19 at 12:01; Status DC Cefepime HCl (Maxipime) 2 gm Q24H IVP Last administered on 04/19/19 09:50; Start 04/19/19 at 09:00; Stop 04/19/19 at 17:23; Status DC Pantoprazole Sodium (Protonix) 40 mg DAILYAC PO Last administered on 04/19/19 09:44; Start 04/19/19 at 07:30 Sodium Chloride 1,000 ml @ 75 mls/hr [id number] IV Last administered on 12/8/19at 03:24; Start 04/19/19 at 13:00; Stop 04/20/19 at 10:52; Status DC Potassium Chloride (Klor-Con) 20 meq 1X ONCE PO Last administered on 04/19/19at 16:40; Start 04/19/19 at 16:00; Stop 04/19/19 at 16:01; Status DC Meropenem 500 mg/ Sodium Chloride 50 ml @ 100 mls/hr Q6HRS IV Last administered on 04/21/19at 06:09; Start 04/19/19 at 18:00 Amino Acids/ Glycerin/ Electrolytes 1,000 ml @ 80 mls/hr [id number] IV Last administered on 04/20/19at 23:23; Start 04/20/19 at 11:30 Barium Sulfate (Varibar Thin Liquid Apple) 148 gm 1X ONCE PO ; Start 04/20/19 at 11:30; Stop 04/20/19 at 11:32; Status DC Active Scripts Active Reported Lisinopril 10 Mg Tablet 1 Tab PO DAILY Amlodipine Besylate 10 Mg Tablet 10 Mg PO DAILY Allergies Allergies: Coded Allergies: Penicillins (Verified Adverse Reaction, Intermediate, N/V, 04/21/19) TOLERATES CEFEPIME ROS General: YES: Fatigue, Malaise; No: Chills PSYCHOLOGICAL ROS: No: Anxiety, Depression Eyes: No Blurry vision, No Double vision HEENT: No: Heacaches, Sore Throat Hematological and Lymphatic: No: Bleeding Problems, Blood Clots Respiratory: No: Cough, Shortness of breath Cardiovascular: No Chest Pain, No Palpitations Gastrointestinal: Yes Other (see hpi) Genitourinary: No Dysuria, No Hematuria Musculoskeletal: No Joint Pain, No Muscle Pain Neurological: No Impaired Coord/balance, No Numbness/Tingling Physical Exam General: Alert, Oriented X3, Cooperative HEENT: Atraumatic, Other (jaundice ) Lungs: Clear to auscultation, Normal air movement Heart: Regular rate, Normal S1, Normal S2 Abdomen: Soft, No tenderness Extremities: No clubbing, No cyanosis Skin: No rashes, No breakdown Neuro: Normal speech, Sensation intact Psych/Mental Status: Mental status NL, Mood NL MUSCULOSKELETAL: No deformity, No swelling Vitals VITALS Vital Signs Date Time Temp Pulse Resp B/P (MAP) Pulse Ox O2 Delivery O2 Flow Rate FiO2 04/21/19 07:28 97.8 87 20 172/70 (104) 95 Nasal Cannula 2.0 97.8 Labs Labs Laboratory Tests Test 04/19/19 12:05 04/19/19 16:39 04/19/19 20:30 04/20/19 03:45 Glucose (Fingerstick) 219 mg/dL (70-99) 255 mg/dL (70-99) 177 mg/dL (70-99) White Blood Count 10.6 x10^3/uL (4.0-11.0) Red Blood Count 4.19 x10^6/uL (3.50-5.40) Hemoglobin 12.7 g/dL (12.0-15.5) Hematocrit 36.8 % (36.0-47.0) Mean Corpuscular Volume 88 fL (79-100) Mean Corpuscular Hemoglobin 30 pg (25-35) Mean Corpuscular Hemoglobin Concent 35 g/dL (31-37) Red Cell Distribution Width 15.2 % (11.5-14.5) Platelet Count 75 x10^3/uL (140-400) Neutrophils (%) (Auto) 86 % (31-73) Lymphocytes (%) (Auto) 7 % (24-48) Monocytes (%) (Auto) 5 % (0-9) Eosinophils (%) (Auto) 1 % (0-3) Basophils (%) (Auto) 0 % (0-3) Neutrophils # (Auto) 9.1 x10^3/uL (1.8-7.7) Lymphocytes # (Auto) 0.8 x10^3/uL (1.0-4.8) Monocytes # (Auto) 0.6 x10^3/uL (0.0-1.1) Eosinophils # (Auto) 0.1 x10^3/uL (0.0-0.7) Basophils # (Auto) 0.0 x10^3/uL (0.0-0.2) Sodium Level 137 mmol/L (136-145) Potassium Level 3.5 mmol/L (3.5-5.1) Chloride Level 101 mmol/L (98-107) Carbon Dioxide Level 27 mmol/L (21-32) Anion Gap 9 (6-14) Blood Urea Nitrogen 28 mg/dL (7-20) Creatinine 0.9 mg/dL (0.6-1.0) Estimated GFR (Cockcroft-Gault) 59.8 BUN/Creatinine Ratio 31 (6-20) Glucose Level 181 mg/dL (70-99) Calcium Level 7.4 mg/dL (8.5-10.1) Total Bilirubin 8.9 mg/dL (0.2-1.0) Aspartate Amino Transf (AST/SGOT) 65 U/L (15-37) Alanine Aminotransferase (ALT/SGPT) 59 U/L (14-59) Alkaline Phosphatase 397 U/L (46-116) Total Protein 4.2 g/dL (6.4-8.2) Albumin 1.4 g/dL (3.4-5.0) Albumin/Globulin Ratio 0.5 (1.0-1.7) Test 04/20/19 07:34 04/20/19 11:43 04/20/19 17:00 04/20/19 20:36 Glucose (Fingerstick) 157 mg/dL (70-99) 174 mg/dL (70-99) 171 mg/dL (70-99) 196 mg/dL (70-99) Test 04/21/19 03:50 04/21/19 07:39 White Blood Count 9.3 x10^3/uL (4.0-11.0) Red Blood Count 4.22 x10^6/uL (3.50-5.40) Hemoglobin 12.7 g/dL (12.0-15.5) Hematocrit 37.0 % (36.0-47.0) Mean Corpuscular Volume 88 fL (79-100) Mean Corpuscular Hemoglobin 30 pg (25-35) Mean Corpuscular Hemoglobin Concent 34 g/dL (31-37) Red Cell Distribution Width 14.8 % (11.5-14.5) Platelet Count 92 x10^3/uL (140-400) Neutrophils (%) (Auto) 82 % (31-73) Lymphocytes (%) (Auto) 9 % (24-48) Monocytes (%) (Auto) 8 % (0-9) Eosinophils (%) (Auto) 1 % (0-3) Basophils (%) (Auto) 0 % (0-3) Neutrophils # (Auto) 7.7 x10^3/uL (1.8-7.7) Lymphocytes # (Auto) 0.8 x10^3/uL (1.0-4.8) Monocytes # (Auto) 0.7 x10^3/uL (0.0-1.1) Eosinophils # (Auto) 0.1 x10^3/uL (0.0-0.7) Basophils # (Auto) 0.0 x10^3/uL (0.0-0.2) Sodium Level 137 mmol/L (136-145) Potassium Level 3.4 mmol/L (3.5-5.1) Chloride Level 102 mmol/L (98-107) Carbon Dioxide Level 28 mmol/L (21-32) Anion Gap 7 (6-14) Blood Urea Nitrogen 24 mg/dL (7-20) Creatinine 0.7 mg/dL (0.6-1.0) Estimated GFR (Cockcroft-Gault) 79.9 BUN/Creatinine Ratio 34 (6-20) Glucose Level 232 mg/dL (70-99) Calcium Level 8.1 mg/dL (8.5-10.1) Total Bilirubin 4.0 mg/dL (0.2-1.0) Aspartate Amino Transf (AST/SGOT) 38 U/L (15-37) Alanine Aminotransferase (ALT/SGPT) 43 U/L (14-59) Alkaline Phosphatase 319 U/L (46-116) Total Protein 5.2 g/dL (6.4-8.2) Albumin 1.3 g/dL (3.4-5.0) Albumin/Globulin Ratio 0.3 (1.0-1.7) Glucose (Fingerstick) 186 mg/dL (70-99) Laboratory Tests Test 04/20/19 11:43 04/20/19 17:00 04/20/19 20:36 04/21/19 03:50 Glucose (Fingerstick) 174 mg/dL (70-99) 171 mg/dL (70-99) 196 mg/dL (70-99) White Blood Count 9.3 x10^3/uL (4.0-11.0) Red Blood Count 4.22 x10^6/uL (3.50-5.40) Hemoglobin 12.7 g/dL (12.0-15.5) Hematocrit 37.0 % (36.0-47.0) Mean Corpuscular Volume 88 fL (79-100) Mean Corpuscular Hemoglobin 30 pg (25-35) Mean Corpuscular Hemoglobin Concent 34 g/dL (31-37) Red Cell Distribution Width 14.8 % (11.5-14.5) Platelet Count 92 x10^3/uL (140-400) Neutrophils (%) (Auto) 82 % (31-73) Lymphocytes (%) (Auto) 9 % (24-48) Monocytes (%) (Auto) 8 % (0-9) Eosinophils (%) (Auto) 1 % (0-3) Basophils (%) (Auto) 0 % (0-3) Neutrophils # (Auto) 7.7 x10^3/uL (1.8-7.7) Lymphocytes # (Auto) 0.8 x10^3/uL (1.0-4.8) Monocytes # (Auto) 0.7 x10^3/uL (0.0-1.1) Eosinophils # (Auto) 0.1 x10^3/uL (0.0-0.7) Basophils # (Auto) 0.0 x10^3/uL (0.0-0.2) Sodium Level 137 mmol/L (136-145) Potassium Level 3.4 mmol/L (3.5-5.1) Chloride Level 102 mmol/L (98-107) Carbon Dioxide Level 28 mmol/L (21-32) Anion Gap 7 (6-14) Blood Urea Nitrogen 24 mg/dL (7-20) Creatinine 0.7 mg/dL (0.6-1.0) Estimated GFR (Cockcroft-Gault) 79.9 BUN/Creatinine Ratio 34 (6-20) Glucose Level 232 mg/dL (70-99) Calcium Level 8.1 mg/dL (8.5-10.1) Total Bilirubin 4.0 mg/dL (0.2-1.0) Aspartate Amino Transf (AST/SGOT) 38 U/L (15-37) Alanine Aminotransferase (ALT/SGPT) 43 U/L (14-59) Alkaline Phosphatase 319 U/L (46-116) Total Protein 5.2 g/dL (6.4-8.2) Albumin 1.3 g/dL (3.4-5.0) Albumin/Globulin Ratio 0.3 (1.0-1.7) Test 04/21/19 07:39 Glucose (Fingerstick) 186 mg/dL (70-99) Assessment/Plan Assessment/Plan jaundice, abnormal pancreatic CT findings plan for MRCP today will have NIKA Ontiveros MD 04/21/19 1544: CONSULT Assessment/Plan Assessment/Plan Pt seen and examined. Agree with Ms. Verdugo's note Pt without current c/o, presented with emesis abd soft, ND, NTTP jaundice improving MRCP pending. D/w pt and pt's supportive family. Thanks for consult! MARYLIN VERDUGO APRN Apr 21, 2019 09:04 NIKA KNIGHT MD Apr 21, 2019 15:44
--- NOTE | 2019-04-21 10:27 | NUR ---
SS following up with discharge planning. PT/OT recommended longterm unit. SS phoned and faxed referral to [facility], ; fax [phone]. SS will await acceptance decision and will proceed accordingly with discharge planning.
[2019-04-21 11:00] VITALS: BP 158/61
[2019-04-21] MEDS: POTASSIUM CHLORIDE 10MEQ 100 ML IV SCH ×2 (12:55→17:01)
--- NOTE | 2019-04-21 13:21 | PDOC ---
G I PROGRESS NOTE Subjective No complaints of pain. Would like a drink of water. Objective MRCP pending. Physical Exam Lungs clear. RRR Abdomen soft, not tender nor distended. Review of Relevant I have reviewed the following items jose (where applicable) has been applied. Labs Laboratory Tests Test 04/19/19 16:39 04/19/19 20:30 04/20/19 03:45 04/20/19 07:34 Glucose (Fingerstick) 255 mg/dL (70-99) 177 mg/dL (70-99) 157 mg/dL (70-99) White Blood Count 10.6 x10^3/uL (4.0-11.0) Red Blood Count 4.19 x10^6/uL (3.50-5.40) Hemoglobin 12.7 g/dL (12.0-15.5) Hematocrit 36.8 % (36.0-47.0) Mean Corpuscular Volume 88 fL (79-100) Mean Corpuscular Hemoglobin 30 pg (25-35) Mean Corpuscular Hemoglobin Concent 35 g/dL (31-37) Red Cell Distribution Width 15.2 % (11.5-14.5) Platelet Count 75 x10^3/uL (140-400) Neutrophils (%) (Auto) 86 % (31-73) Lymphocytes (%) (Auto) 7 % (24-48) Monocytes (%) (Auto) 5 % (0-9) Eosinophils (%) (Auto) 1 % (0-3) Basophils (%) (Auto) 0 % (0-3) Neutrophils # (Auto) 9.1 x10^3/uL (1.8-7.7) Lymphocytes # (Auto) 0.8 x10^3/uL (1.0-4.8) Monocytes # (Auto) 0.6 x10^3/uL (0.0-1.1) Eosinophils # (Auto) 0.1 x10^3/uL (0.0-0.7) Basophils # (Auto) 0.0 x10^3/uL (0.0-0.2) Sodium Level 137 mmol/L (136-145) Potassium Level 3.5 mmol/L (3.5-5.1) Chloride Level 101 mmol/L (98-107) Carbon Dioxide Level 27 mmol/L (21-32) Anion Gap 9 (6-14) Blood Urea Nitrogen 28 mg/dL (7-20) Creatinine 0.9 mg/dL (0.6-1.0) Estimated GFR (Cockcroft-Gault) 59.8 BUN/Creatinine Ratio 31 (6-20) Glucose Level 181 mg/dL (70-99) Calcium Level 7.4 mg/dL (8.5-10.1) Total Bilirubin 8.9 mg/dL (0.2-1.0) Aspartate Amino Transf (AST/SGOT) 65 U/L (15-37) Alanine Aminotransferase (ALT/SGPT) 59 U/L (14-59) Alkaline Phosphatase 397 U/L (46-116) Total Protein 4.2 g/dL (6.4-8.2) Albumin 1.4 g/dL (3.4-5.0) Albumin/Globulin Ratio 0.5 (1.0-1.7) Test 04/20/19 11:43 04/20/19 17:00 04/20/19 20:36 04/21/19 03:50 Glucose (Fingerstick) 174 mg/dL (70-99) 171 mg/dL (70-99) 196 mg/dL (70-99) White Blood Count 9.3 x10^3/uL (4.0-11.0) Red Blood Count 4.22 x10^6/uL (3.50-5.40) Hemoglobin 12.7 g/dL (12.0-15.5) Hematocrit 37.0 % (36.0-47.0) Mean Corpuscular Volume 88 fL (79-100) Mean Corpuscular Hemoglobin 30 pg (25-35) Mean Corpuscular Hemoglobin Concent 34 g/dL (31-37) Red Cell Distribution Width 14.8 % (11.5-14.5) Platelet Count 92 x10^3/uL (140-400) Neutrophils (%) (Auto) 82 % (31-73) Lymphocytes (%) (Auto) 9 % (24-48) Monocytes (%) (Auto) 8 % (0-9) Eosinophils (%) (Auto) 1 % (0-3) Basophils (%) (Auto) 0 % (0-3) Neutrophils # (Auto) 7.7 x10^3/uL (1.8-7.7) Lymphocytes # (Auto) 0.8 x10^3/uL (1.0-4.8) Monocytes # (Auto) 0.7 x10^3/uL (0.0-1.1) Eosinophils # (Auto) 0.1 x10^3/uL (0.0-0.7) Basophils # (Auto) 0.0 x10^3/uL (0.0-0.2) Sodium Level 137 mmol/L (136-145) Potassium Level 3.4 mmol/L (3.5-5.1) Chloride Level 102 mmol/L (98-107) Carbon Dioxide Level 28 mmol/L (21-32) Anion Gap 7 (6-14) Blood Urea Nitrogen 24 mg/dL (7-20) Creatinine 0.7 mg/dL (0.6-1.0) Estimated GFR (Cockcroft-Gault) 79.9 BUN/Creatinine Ratio 34 (6-20) Glucose Level 232 mg/dL (70-99) Calcium Level 8.1 mg/dL (8.5-10.1) Total Bilirubin 4.0 mg/dL (0.2-1.0) Aspartate Amino Transf (AST/SGOT) 38 U/L (15-37) Alanine Aminotransferase (ALT/SGPT) 43 U/L (14-59) Alkaline Phosphatase 319 U/L (46-116) Total Protein 5.2 g/dL (6.4-8.2) Albumin 1.3 g/dL (3.4-5.0) Albumin/Globulin Ratio 0.3 (1.0-1.7) Test 04/21/19 07:39 04/21/19 11:33 Glucose (Fingerstick) 186 mg/dL (70-99) 262 mg/dL (70-99) Laboratory Tests Test 04/20/19 17:00 04/20/19 20:36 04/21/19 03:50 04/21/19 07:39 Glucose (Fingerstick) 171 mg/dL (70-99) 196 mg/dL (70-99) 186 mg/dL (70-99) White Blood Count 9.3 x10^3/uL (4.0-11.0) Red Blood Count 4.22 x10^6/uL (3.50-5.40) Hemoglobin 12.7 g/dL (12.0-15.5) Hematocrit 37.0 % (36.0-47.0) Mean Corpuscular Volume 88 fL (79-100) Mean Corpuscular Hemoglobin 30 pg (25-35) Mean Corpuscular Hemoglobin Concent 34 g/dL (31-37) Red Cell Distribution Width 14.8 % (11.5-14.5) Platelet Count 92 x10^3/uL (140-400) Neutrophils (%) (Auto) 82 % (31-73) Lymphocytes (%) (Auto) 9 % (24-48) Monocytes (%) (Auto) 8 % (0-9) Eosinophils (%) (Auto) 1 % (0-3) Basophils (%) (Auto) 0 % (0-3) Neutrophils # (Auto) 7.7 x10^3/uL (1.8-7.7) Lymphocytes # (Auto) 0.8 x10^3/uL (1.0-4.8) Monocytes # (Auto) 0.7 x10^3/uL (0.0-1.1) Eosinophils # (Auto) 0.1 x10^3/uL (0.0-0.7) Basophils # (Auto) 0.0 x10^3/uL (0.0-0.2) Sodium Level 137 mmol/L (136-145) Potassium Level 3.4 mmol/L (3.5-5.1) Chloride Level 102 mmol/L (98-107) Carbon Dioxide Level 28 mmol/L (21-32) Anion Gap 7 (6-14) Blood Urea Nitrogen 24 mg/dL (7-20) Creatinine 0.7 mg/dL (0.6-1.0) Estimated GFR (Cockcroft-Gault) 79.9 BUN/Creatinine Ratio 34 (6-20) Glucose Level 232 mg/dL (70-99) Calcium Level 8.1 mg/dL (8.5-10.1) Total Bilirubin 4.0 mg/dL (0.2-1.0) Aspartate Amino Transf (AST/SGOT) 38 U/L (15-37) Alanine Aminotransferase (ALT/SGPT) 43 U/L (14-59) Alkaline Phosphatase 319 U/L (46-116) Total Protein 5.2 g/dL (6.4-8.2) Albumin 1.3 g/dL (3.4-5.0) Albumin/Globulin Ratio 0.3 (1.0-1.7) Test 04/21/19 11:33 Glucose (Fingerstick) 262 mg/dL (70-99) Microbiology 04/19/19 Blood Culture - Preliminary, Resulted NO GROWTH AFTER 2 DAYS 04/17/19 Urine Culture - Final, Complete 04/17/19 Urine Culture Result 1 (SUMIT) - Final, Complete LFT's improving some. Awaiting ID and sensitivities on blood culture organism (Had E.coli at [facility] in past). Vitals/I & O Vital Sign - Last 24 Hours 04/20/19 04/20/19 04/20/19 04/20/19 15:00 19:35 19:45 23:00 Temp 98.2 98.3 98.2 98.2 98.3 98.2 Pulse 71 83 83 Resp 18 22 22 B/P (MAP) 147/57 (87) 164/59 (94) 175/74 (107) Pulse Ox 97 92 97 O2 Delivery Nasal Cannula Nasal Cannula Nasal Cannula Nasal Cannula O2 Flow Rate 2.0 2.0 2.0 2.0 04/21/19 04/21/19 04/21/19 04/21/19 03:45 07:28 09:00 11:00 Temp 98.0 97.8 98.4 98.0 97.8 98.4 Pulse 85 87 86 Resp 22 20 20 B/P (MAP) 165/67 (99) 172/70 (104) 158/61 (93) Pulse Ox 96 95 94 O2 Delivery Nasal Cannula Nasal Cannula Nasal Cannula Nasal Cannula O2 Flow Rate 2.0 2.0 2.0 2.0 Intake and Output 04/20/19 04/20/19 04/21/19 14:59 22:59 06:59 Intake Total 305 ml 640 ml 0 ml Output Total 700 ml 400 ml 900 ml Balance -395 ml 240 ml -900 ml Images MRCP pending. Problem List Problems Medical Problems: (1) Abnormal CT of the abdomen Status: Acute (2) Atrial fibrillation Status: Acute (3) Elevated liver function tests Status: Acute (4) Hyperglycemia Status: Acute (5) Hypoalbuminemia Status: Acute (6) Jaundice Status: Acute (7) Nausea and vomiting Status: Acute (8) Renal insufficiency Status: Acute (9) Sepsis Status: Acute (10) Uncontrolled diabetes mellitus Status: Acute (11) Urinary tract infection Status: Acute Assessment Possible pancreatic mass/elevated CA19-9. Cholestatic enzyme picture; given improving, some likely just from sepsis. OP dysphagia. Plan of Care: Continue current Tx, Mgmt Plan of Care Note Await MRCP, other pending data. CAMILO ANDRADE MD Apr 21, 2019 13:21
--- NOTE | 2019-04-21 14:15 | NUR ---
SS following up with discharge planning. Pt accepted at [facility], ; fax [phone]. SS will continue to follow for discharge planning.
[2019-04-21 14:48] VITALS: BP 155/66
[2019-04-21] MEDS: AMINO AC 3%/ELECTROLYTE/GLYCER 1,000 ML IV SCH (17:00)
[2019-04-21 19:30] VITALS: BP 140/56
[2019-04-21 23:05] VITALS: BP 160/86
[2019-04-22 03:30] VITALS: BP 180/60
[2019-04-22] MEDS: MEROPENEM 500 MG in IV NORMAL SALINE 50ML 50 ML IV SCH ×4 (05:00→23:12)
[2019-04-22 06:44] LABS: BASO % 0 % (0-3); EOS # 0.2 x10^3/uL (0.0-0.7); EOS % 2 % (0-3); HEMATOCRIT 34.5 % (36.0-47.0); HEMOGLOBIN 11.7 g/dL (12.0-15.5); LYMPH # 0.8 x10^3/uL (1.0-4.8); LYMPH % 7 % (24-48); MEAN CORPUSCULAR HEMOGLOBIN 30 pg (25-35); MEAN CORPUSCULAR HGB CONC 34 g/dL (31-37); MEAN CORPUSCULAR VOLUME 89 fL (79-100); MONO # 0.8 x10^3/uL (0.0-1.1); MONO % 7 % (0-9); NEUT # 9.7 x10^3/uL (1.8-7.7); NEUT % 85 % (31-73); PLATELET COUNT 111 x10^3/uL (140-400); RED BLOOD COUNT 3.89 x10^6/uL (3.50-5.40); RED CELL DISTRIBUTION WIDTH 15.1 % (11.5-14.5); WHITE BLOOD COUNT 11.5 x10^3/uL (4.0-11.0)
[2019-04-22 07:00] VITALS: BP 165/85
[2019-04-22 07:03] LABS: ALBUMIN 1.5 g/dL (3.4-5.0); ALBUMIN/GLOBULIN RATIO 0.5 (1.0-1.7); CALCIUM 7.8 mg/dL (8.5-10.1); GFR 95.5; TOTAL BILIRUBIN 3.1 mg/dL (0.2-1.0); TOTAL PROTEIN 4.5 g/dL (6.4-8.2)
[2019-04-22] MEDS: PANTOPRAZOLE 40 MG TABLET.DR. PO SCH (07:30)
[2019-04-22 07:37] LABS: CREATININE 0.6 mg/dL (0.6-1.0)
--- NOTE | 2019-04-22 07:57 | PDOC ---
GENERAL General: vss and afebrile awake and alert. wants food and water. for swallow study today. chest clear, heart regular, abdomen benign. cbc with improving counts. E. coli on blood cultures with sensitivities available. MRCP result pending. blood pressures elevated as npo and not getting home meds and will add catapres patch. VITAL SIGNS/I&O Vital Signs/I&O: Vital Signs Date Time Temp Pulse Resp B/P (MAP) Pulse Ox O2 Delivery O2 Flow Rate FiO2 04/22/19 03:35 94 Nasal Cannula 2.0 04/22/19 03:30 98.5 71 22 180/60 (100) 98.5 I & O 04/21/19 04/21/19 04/22/19 15:00 23:00 07:00 Intake Total 0 ml 100 ml 100 ml Output Total 300 ml 750 ml Balance 0 ml -200 ml -650 ml ALLERGIES Allergies: Allergies Coded Allergies Type Severity Reaction Last Updated Verified Penicillins Adverse Reaction Intermediate N/V 04/21/19 Yes MEDS Medications: Current Medications Medications (Trade) Dose Ordered Sig/Almaz Route PRN Reason Start Time Stop Time Status Last Admin Dose Admin Potassium Chloride/Water 100 ml @ 100 mls/hr Q1H IV 04/21/19 11:00 04/21/19 12:59 DC 04/21/19 17:01 LAB Lab: Laboratory Tests Test 04/21/19 11:33 04/21/19 16:37 04/21/19 20:31 04/22/19 06:09 Glucose (Fingerstick) 262 mg/dL (70-99) H 255 mg/dL (70-99) H 236 mg/dL (70-99) H White Blood Count 11.5 x10^3/uL (4.0-11.0) H Red Blood Count 3.89 x10^6/uL (3.50-5.40) Hemoglobin 11.7 g/dL (12.0-15.5) L Hematocrit 34.5 % (36.0-47.0) L Mean Corpuscular Volume 89 fL (79-100) Mean Corpuscular Hemoglobin 30 pg (25-35) Mean Corpuscular Hemoglobin Concent 34 g/dL (31-37) Red Cell Distribution Width 15.1 % (11.5-14.5) H Platelet Count 111 x10^3/uL (140-400) L Neutrophils (%) (Auto) 85 % (31-73) H Lymphocytes (%) (Auto) 7 % (24-48) L Monocytes (%) (Auto) 7 % (0-9) Eosinophils (%) (Auto) 2 % (0-3) Basophils (%) (Auto) 0 % (0-3) Neutrophils # (Auto) 9.7 x10^3/uL (1.8-7.7) H Lymphocytes # (Auto) 0.8 x10^3/uL (1.0-4.8) L Monocytes # (Auto) 0.8 x10^3/uL (0.0-1.1) Eosinophils # (Auto) 0.2 x10^3/uL (0.0-0.7) Basophils # (Auto) 0.0 x10^3/uL (0.0-0.2) Sodium Level 139 mmol/L (136-145) Potassium Level 4.0 mmol/L (3.5-5.1) Chloride Level 103 mmol/L (98-107) Carbon Dioxide Level 26 mmol/L (21-32) Anion Gap 10 (6-14) Blood Urea Nitrogen 22 mg/dL (7-20) H Creatinine 0.6 mg/dL (0.6-1.0) Estimated GFR (Cockcroft-Gault) 95.5 BUN/Creatinine Ratio 37 (6-20) H Glucose Level 219 mg/dL (70-99) H Calcium Level 7.8 mg/dL (8.5-10.1) L Total Bilirubin 3.1 mg/dL (0.2-1.0) H Aspartate Amino Transferase (AST) 34 U/L (15-37) Alanine Aminotransferase (ALT) 38 U/L (14-59) Alkaline Phosphatase 289 U/L (46-116) H Total Protein 4.5 g/dL (6.4-8.2) L Albumin 1.5 g/dL (3.4-5.0) L Albumin/Globulin Ratio 0.5 (1.0-1.7) L Laboratory Tests 04/22/19 06:09 Laboratory Tests 04/22/19 06:09 VOLODYMYR HESS MD Apr 22, 2019 07:57
--- NOTE | 2019-04-22 08:18 | RAD ---
Examination: MRCP WO CONTRAST History: Jaundice, abnormal CT of the abdomen and pelvis Comparison/Correlation: 04/17/2019 CT abdomen and pelvis without contrast Findings: Multiplanar, multisequence images of the abdomen were obtained. Maximum intensity projection images were provided. Thick slab MRCP images were provided. Small right pleural effusion is present. Right hepatic lobe cyst is present in the subcapsular aspect measuring up to 1.1 cm. Sludge within the gallbladder is noted. Mild central biliary dilatation is present. Common hepatic duct is not clearly delineated. Intermediate signal intensity along the distribution of the common hepatic duct is noted. The mid to distal common bile duct is unremarkable and no stricture. Spleen is unremarkable. Adrenal glands are normal. Sludge within the gallbladder is noted. Pancreatic neck cystic structure measuring 1.2 cm diameter is present. An adjacent cystic structure with a septated component is present in the pancreatic neck measuring up to 1.4 cm x 1.3 cm these findings are noted on axial image 24 of series 5. Cystic lesion along the posterior aspect of the uncinate measuring 1 cm diameter is present more inferiorly. Several cystic structures involving the pancreatic body are present measuring less than 0.5 cm diameter. No pancreatic ductal dilatation. No evidence of pancreatic divisum. Mildly heterogeneous multicystic region involving the liver is noted in the right hepatic lobe measuring up to 3.8 cm x 3.2 cm. This is seen on multiple series including series 5 images 13 through 17. Kidneys are not fully included for purposes of this exam on all series. Simple cysts appear to be present bilaterally involving the kidneys. Impression: Small right pleural effusion. Proximal pancreatic cystic lesions. Septation of one of these lesions noted. No solid component identified. These are of indeterminate significance although possibility of malignancy is not excluded. Multiple smaller cystic appearing lesions probably representing IPMN of the pancreatic body are present. Interval follow up to assess stability is recommended. If biopsy were to be performed, endoscopic ultrasound approach for the pancreatic neck cystic structures may be feasible. Multicystic appearance of the anterior segment of the right hepatic lobe. Slight heterogeneity at this site. Mild central biliary dilatation. Common hepatic duct is not well delineated and well-defined intermediate signal intensity is seen along its course. Further evaluation with contrast-enhanced MRI of the liver is recommended if able for further evaluate for possible underlying neoplastic involvement such as cholangiocarcinoma. Pancreatic cystic lesions may also be assessed on contrast enhanced MRI. Electronically signed by: Rogelio Ledezma MD (04/22/2019 8:15 AM) [facility]
[2019-04-22] MEDS: INSULIN LISPRO 300 UNITS/3 ML VIAL. SQ SCH ×3 (08:30→17:06)
--- NOTE | 2019-04-22 08:46 | PDOC ---
Infectious Disease Note Subjective Subjective c/o thirst and hunger but is NPO 2L O2 Denies SOA, CP, N/V/D Vital Sign Vital Signs Vital Signs Date Time Temp Pulse Resp B/P (MAP) Pulse Ox O2 Delivery O2 Flow Rate FiO2 04/22/19 07:00 97.8 73 18 165/85 (111) 97 Nasal Cannula 2.0 97.8 Physical Exam PHYSICAL EXAM GENERAL: Propped up in bed, alert, NAD HENT: Oral cavity very dry. + dentures NECK: Supple LUNGS: Clear - on 02 CV: S1, S2 ABDOMEN: Soft and nontender EXT: No gross edema or cyanosis SKIN: warm to touch. 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 MANAGER: Alert, answering questions appropriately PIV Labs Lab Laboratory Tests Test 04/21/19 11:33 04/21/19 16:37 04/21/19 20:31 04/22/19 06:09 Glucose (Fingerstick) 262 mg/dL (70-99) 255 mg/dL (70-99) 236 mg/dL (70-99) White Blood Count 11.5 x10^3/uL (4.0-11.0) Red Blood Count 3.89 x10^6/uL (3.50-5.40) Hemoglobin 11.7 g/dL (12.0-15.5) Hematocrit 34.5 % (36.0-47.0) Mean Corpuscular Volume 89 fL (79-100) Mean Corpuscular Hemoglobin 30 pg (25-35) Mean Corpuscular Hemoglobin Concent 34 g/dL (31-37) Red Cell Distribution Width 15.1 % (11.5-14.5) Platelet Count 111 x10^3/uL (140-400) Neutrophils (%) (Auto) 85 % (31-73) Lymphocytes (%) (Auto) 7 % (24-48) Monocytes (%) (Auto) 7 % (0-9) Eosinophils (%) (Auto) 2 % (0-3) Basophils (%) (Auto) 0 % (0-3) Neutrophils # (Auto) 9.7 x10^3/uL (1.8-7.7) Lymphocytes # (Auto) 0.8 x10^3/uL (1.0-4.8) Monocytes # (Auto) 0.8 x10^3/uL (0.0-1.1) Eosinophils # (Auto) 0.2 x10^3/uL (0.0-0.7) Basophils # (Auto) 0.0 x10^3/uL (0.0-0.2) Sodium Level 139 mmol/L (136-145) Potassium Level 4.0 mmol/L (3.5-5.1) Chloride Level 103 mmol/L (98-107) Carbon Dioxide Level 26 mmol/L (21-32) Anion Gap 10 (6-14) Blood Urea Nitrogen 22 mg/dL (7-20) Creatinine 0.6 mg/dL (0.6-1.0) Estimated GFR (Cockcroft-Gault) 95.5 BUN/Creatinine Ratio 37 (6-20) Glucose Level 219 mg/dL (70-99) Calcium Level 7.8 mg/dL (8.5-10.1) Total Bilirubin 3.1 mg/dL (0.2-1.0) Aspartate Amino Transf (AST/SGOT) 34 U/L (15-37) Alanine Aminotransferase (ALT/SGPT) 38 U/L (14-59) Alkaline Phosphatase 289 U/L (46-116) Total Protein 4.5 g/dL (6.4-8.2) Albumin 1.5 g/dL (3.4-5.0) Albumin/Globulin Ratio 0.5 (1.0-1.7) Test 04/22/19 07:48 Glucose (Fingerstick) 203 mg/dL (70-99) Micro BLOOD CULTURE LC Final Preliminary report Final report BLD CULT RESULT 1 Final Gram negative rods Escherichia coli Performed at: - [facility] [address], [place], [place] [id number] Accounting/Finance Tutor: CODY Andrews MD, Phone: [phone] ANTIMICROBIAL SUSCEPTIBILITY Final Comment S = Susceptible; I = Intermediate; R = Resistant P = Positive; N = Negative MICS are expressed in micrograms per mL Antibiotic RSLT#1 RSLT#2 RSLT#3 RSLT#4 Amoxicillin/Clavulanic Acid I =16 Ampicillin R>=32 Cefepime S<=0.12 Ceftriaxone S<=0.25 Cefuroxime S =4 Ciprofloxacin S<=0.25 Ertapenem S<=0.12 Gentamicin I =8 Imipenem S<=0.25 Levofloxacin S<=0.12 Meropenem S<=0.25 Nitrofurantoin S<=16 Piperacillin/Tazobactam S<=4 Tetracycline R>=16 Tobramycin R>=16 Trimethoprim/Sulfa S<=20 Microbiology 04/19/19 Blood Culture - Preliminary, Resulted NO GROWTH AFTER 2 DAYS 04/17/19 Urine Culture - Final, Complete 04/17/19 Urine Culture Result 1 (SUMIT) - Final, Complete Objective Assessment Ecoli sepsis from 04/17. Fever abx chged to merrem 04/19 - better Leukocytosis - mild increase today PENICILLIN ALLERGY WITH NAUSEA, VOMITING. Tolerated cefepime Severe Protein Malnutrition Pyuria. The patient does not have any urinary symptoms. UC lactobacillus Abnormal LFTs with abnormal CT. pancreatic lesion, CA 19-9 is 114 Thrombocytopenia - better Dysphagia - NPO Acute kidney injury - better Hyponatremia - corrected Nausea, vomiting, coffee ground emesis, diarrhea - better Uncontrolled diabetes mellitus. Off medications Pulmonary infiltrate, now clear High proBNP. Protein-calorie malnutrition. Lactic acidosis - better H/o Dementia Plan Plan of Care cont merrem (04/19) Awaiting further GI and surgical f/u F/u labs Maintain aspiration precaution. Continue supportive care. D/w nursing MARILEE DO MD Apr 22, 2019 08:46
[2019-04-22] MEDS ORDERED: cloNIDine TTS-1 1 PATCH PATCH.TDWK TD SCH (09:00)
--- NOTE | 2019-04-22 10:08 | PDOC ---
MARYLIN BLACK WEIGHT CALLER 04/22/19 1008: SURGICAL PROGRESS NOTE Subjective resting would like some water no pain Vital Signs Vital Signs Date Time Temp Pulse Resp B/P (MAP) Pulse Ox O2 Delivery O2 Flow Rate FiO2 04/22/19 07:00 97.8 73 18 165/85 (111) 97 Nasal Cannula 2.0 97.8 I&O Intake and Output 04/22/19 07:00 Intake Total 200 ml Output Total 1050 ml Balance -850 ml Intake Oral 50 ml IV Total 150 ml Output Urine Total 1050 ml # Voids 2 General: Alert, Cooperative, No acute distress Abdomen: Soft, No tenderness Labs Laboratory Tests Test 04/20/19 11:43 04/20/19 17:00 04/20/19 20:36 04/21/19 03:50 Glucose (Fingerstick) 174 mg/dL (70-99) 171 mg/dL (70-99) 196 mg/dL (70-99) White Blood Count 9.3 x10^3/uL (4.0-11.0) Red Blood Count 4.22 x10^6/uL (3.50-5.40) Hemoglobin 12.7 g/dL (12.0-15.5) Hematocrit 37.0 % (36.0-47.0) Mean Corpuscular Volume 88 fL (79-100) Mean Corpuscular Hemoglobin 30 pg (25-35) Mean Corpuscular Hemoglobin Concent 34 g/dL (31-37) Red Cell Distribution Width 14.8 % (11.5-14.5) Platelet Count 92 x10^3/uL (140-400) Neutrophils (%) (Auto) 82 % (31-73) Lymphocytes (%) (Auto) 9 % (24-48) Monocytes (%) (Auto) 8 % (0-9) Eosinophils (%) (Auto) 1 % (0-3) Basophils (%) (Auto) 0 % (0-3) Neutrophils # (Auto) 7.7 x10^3/uL (1.8-7.7) Lymphocytes # (Auto) 0.8 x10^3/uL (1.0-4.8) Monocytes # (Auto) 0.7 x10^3/uL (0.0-1.1) Eosinophils # (Auto) 0.1 x10^3/uL (0.0-0.7) Basophils # (Auto) 0.0 x10^3/uL (0.0-0.2) Sodium Level 137 mmol/L (136-145) Potassium Level 3.4 mmol/L (3.5-5.1) Chloride Level 102 mmol/L (98-107) Carbon Dioxide Level 28 mmol/L (21-32) Anion Gap 7 (6-14) Blood Urea Nitrogen 24 mg/dL (7-20) Creatinine 0.7 mg/dL (0.6-1.0) Estimated GFR (Cockcroft-Gault) 79.9 BUN/Creatinine Ratio 34 (6-20) Glucose Level 232 mg/dL (70-99) Calcium Level 8.1 mg/dL (8.5-10.1) Total Bilirubin 4.0 mg/dL (0.2-1.0) Aspartate Amino Transf (AST/SGOT) 38 U/L (15-37) Alanine Aminotransferase (ALT/SGPT) 43 U/L (14-59) Alkaline Phosphatase 319 U/L (46-116) Total Protein 5.2 g/dL (6.4-8.2) Albumin 1.3 g/dL (3.4-5.0) Albumin/Globulin Ratio 0.3 (1.0-1.7) Test 04/21/19 07:39 04/21/19 11:33 04/21/19 16:37 04/21/19 20:31 Glucose (Fingerstick) 186 mg/dL (70-99) 262 mg/dL (70-99) 255 mg/dL (70-99) 236 mg/dL (70-99) Test 04/22/19 06:09 04/22/19 07:48 White Blood Count 11.5 x10^3/uL (4.0-11.0) Red Blood Count 3.89 x10^6/uL (3.50-5.40) Hemoglobin 11.7 g/dL (12.0-15.5) Hematocrit 34.5 % (36.0-47.0) Mean Corpuscular Volume 89 fL (79-100) Mean Corpuscular Hemoglobin 30 pg (25-35) Mean Corpuscular Hemoglobin Concent 34 g/dL (31-37) Red Cell Distribution Width 15.1 % (11.5-14.5) Platelet Count 111 x10^3/uL (140-400) Neutrophils (%) (Auto) 85 % (31-73) Lymphocytes (%) (Auto) 7 % (24-48) Monocytes (%) (Auto) 7 % (0-9) Eosinophils (%) (Auto) 2 % (0-3) Basophils (%) (Auto) 0 % (0-3) Neutrophils # (Auto) 9.7 x10^3/uL (1.8-7.7) Lymphocytes # (Auto) 0.8 x10^3/uL (1.0-4.8) Monocytes # (Auto) 0.8 x10^3/uL (0.0-1.1) Eosinophils # (Auto) 0.2 x10^3/uL (0.0-0.7) Basophils # (Auto) 0.0 x10^3/uL (0.0-0.2) Sodium Level 139 mmol/L (136-145) Potassium Level 4.0 mmol/L (3.5-5.1) Chloride Level 103 mmol/L (98-107) Carbon Dioxide Level 26 mmol/L (21-32) Anion Gap 10 (6-14) Blood Urea Nitrogen 22 mg/dL (7-20) Creatinine 0.6 mg/dL (0.6-1.0) Estimated GFR (Cockcroft-Gault) 95.5 BUN/Creatinine Ratio 37 (6-20) Glucose Level 219 mg/dL (70-99) Calcium Level 7.8 mg/dL (8.5-10.1) Total Bilirubin 3.1 mg/dL (0.2-1.0) Aspartate Amino Transf (AST/SGOT) 34 U/L (15-37) Alanine Aminotransferase (ALT/SGPT) 38 U/L (14-59) Alkaline Phosphatase 289 U/L (46-116) Total Protein 4.5 g/dL (6.4-8.2) Albumin 1.5 g/dL (3.4-5.0) Albumin/Globulin Ratio 0.5 (1.0-1.7) Glucose (Fingerstick) 203 mg/dL (70-99) Laboratory Tests Test 04/21/19 11:33 04/21/19 16:37 04/21/19 20:31 04/22/19 06:09 Glucose (Fingerstick) 262 mg/dL (70-99) 255 mg/dL (70-99) 236 mg/dL (70-99) White Blood Count 11.5 x10^3/uL (4.0-11.0) Red Blood Count 3.89 x10^6/uL (3.50-5.40) Hemoglobin 11.7 g/dL (12.0-15.5) Hematocrit 34.5 % (36.0-47.0) Mean Corpuscular Volume 89 fL (79-100) Mean Corpuscular Hemoglobin 30 pg (25-35) Mean Corpuscular Hemoglobin Concent 34 g/dL (31-37) Red Cell Distribution Width 15.1 % (11.5-14.5) Platelet Count 111 x10^3/uL (140-400) Neutrophils (%) (Auto) 85 % (31-73) Lymphocytes (%) (Auto) 7 % (24-48) Monocytes (%) (Auto) 7 % (0-9) Eosinophils (%) (Auto) 2 % (0-3) Basophils (%) (Auto) 0 % (0-3) Neutrophils # (Auto) 9.7 x10^3/uL (1.8-7.7) Lymphocytes # (Auto) 0.8 x10^3/uL (1.0-4.8) Monocytes # (Auto) 0.8 x10^3/uL (0.0-1.1) Eosinophils # (Auto) 0.2 x10^3/uL (0.0-0.7) Basophils # (Auto) 0.0 x10^3/uL (0.0-0.2) Sodium Level 139 mmol/L (136-145) Potassium Level 4.0 mmol/L (3.5-5.1) Chloride Level 103 mmol/L (98-107) Carbon Dioxide Level 26 mmol/L (21-32) Anion Gap 10 (6-14) Blood Urea Nitrogen 22 mg/dL (7-20) Creatinine 0.6 mg/dL (0.6-1.0) Estimated GFR (Cockcroft-Gault) 95.5 BUN/Creatinine Ratio 37 (6-20) Glucose Level 219 mg/dL (70-99) Calcium Level 7.8 mg/dL (8.5-10.1) Total Bilirubin 3.1 mg/dL (0.2-1.0) Aspartate Amino Transf (AST/SGOT) 34 U/L (15-37) Alanine Aminotransferase (ALT/SGPT) 38 U/L (14-59) Alkaline Phosphatase 289 U/L (46-116) Total Protein 4.5 g/dL (6.4-8.2) Albumin 1.5 g/dL (3.4-5.0) Albumin/Globulin Ratio 0.5 (1.0-1.7) Test 04/22/19 07:48 Glucose (Fingerstick) 203 mg/dL (70-99) Problem List Problems Medical Problems: (1) Abnormal CT of the abdomen Status: Acute (2) Atrial fibrillation Status: Acute (3) Elevated liver function tests Status: Acute (4) Hyperglycemia Status: Acute (5) Hypoalbuminemia Status: Acute (6) Jaundice Status: Acute (7) Nausea and vomiting Status: Acute (8) Renal insufficiency Status: Acute (9) Sepsis Status: Acute (10) Uncontrolled diabetes mellitus Status: Acute (11) Urinary tract infection Status: Acute Assessment/Plan reviewed MRCP will review with Dr Barton LFTS improving NIKA BARTON MD 04/22/19 1723: SURGICAL PROGRESS NOTE Assessment/Plan Pt seen and examined. Agree with Ms. Black's note Pt feels better, gustavo PO abd soft, ND, NTTP d/w pt and pt's family. seems to be clinically improving. Would like to avoid surgery. Await MRI of liver. MARYLIN BLACK APRN Apr 22, 2019 10:08 NIKA BARTON MD Apr 22, 2019 17:23
[2019-04-22 11:00] VITALS: BP 182/81
--- NOTE | 2019-04-22 12:08 | PDOC ---
G I PROGRESS NOTE Subjective No pain. Objective Swallowing better; on regular diet. Physical Exam Lungs clear. RRR Abdomen soft, not tender nor distended. Review of Relevant I have reviewed the following items jose (where applicable) has been applied. Labs Laboratory Tests Test 04/20/19 17:00 04/20/19 20:36 04/21/19 03:50 04/21/19 07:39 Glucose (Fingerstick) 171 mg/dL (70-99) 196 mg/dL (70-99) 186 mg/dL (70-99) White Blood Count 9.3 x10^3/uL (4.0-11.0) Red Blood Count 4.22 x10^6/uL (3.50-5.40) Hemoglobin 12.7 g/dL (12.0-15.5) Hematocrit 37.0 % (36.0-47.0) Mean Corpuscular Volume 88 fL (79-100) Mean Corpuscular Hemoglobin 30 pg (25-35) Mean Corpuscular Hemoglobin Concent 34 g/dL (31-37) Red Cell Distribution Width 14.8 % (11.5-14.5) Platelet Count 92 x10^3/uL (140-400) Neutrophils (%) (Auto) 82 % (31-73) Lymphocytes (%) (Auto) 9 % (24-48) Monocytes (%) (Auto) 8 % (0-9) Eosinophils (%) (Auto) 1 % (0-3) Basophils (%) (Auto) 0 % (0-3) Neutrophils # (Auto) 7.7 x10^3/uL (1.8-7.7) Lymphocytes # (Auto) 0.8 x10^3/uL (1.0-4.8) Monocytes # (Auto) 0.7 x10^3/uL (0.0-1.1) Eosinophils # (Auto) 0.1 x10^3/uL (0.0-0.7) Basophils # (Auto) 0.0 x10^3/uL (0.0-0.2) Sodium Level 137 mmol/L (136-145) Potassium Level 3.4 mmol/L (3.5-5.1) Chloride Level 102 mmol/L (98-107) Carbon Dioxide Level 28 mmol/L (21-32) Anion Gap 7 (6-14) Blood Urea Nitrogen 24 mg/dL (7-20) Creatinine 0.7 mg/dL (0.6-1.0) Estimated GFR (Cockcroft-Gault) 79.9 BUN/Creatinine Ratio 34 (6-20) Glucose Level 232 mg/dL (70-99) Calcium Level 8.1 mg/dL (8.5-10.1) Total Bilirubin 4.0 mg/dL (0.2-1.0) Aspartate Amino Transf (AST/SGOT) 38 U/L (15-37) Alanine Aminotransferase (ALT/SGPT) 43 U/L (14-59) Alkaline Phosphatase 319 U/L (46-116) Total Protein 5.2 g/dL (6.4-8.2) Albumin 1.3 g/dL (3.4-5.0) Albumin/Globulin Ratio 0.3 (1.0-1.7) Test 04/21/19 11:33 04/21/19 16:37 04/21/19 20:31 04/22/19 06:09 Glucose (Fingerstick) 262 mg/dL (70-99) 255 mg/dL (70-99) 236 mg/dL (70-99) White Blood Count 11.5 x10^3/uL (4.0-11.0) Red Blood Count 3.89 x10^6/uL (3.50-5.40) Hemoglobin 11.7 g/dL (12.0-15.5) Hematocrit 34.5 % (36.0-47.0) Mean Corpuscular Volume 89 fL (79-100) Mean Corpuscular Hemoglobin 30 pg (25-35) Mean Corpuscular Hemoglobin Concent 34 g/dL (31-37) Red Cell Distribution Width 15.1 % (11.5-14.5) Platelet Count 111 x10^3/uL (140-400) Neutrophils (%) (Auto) 85 % (31-73) Lymphocytes (%) (Auto) 7 % (24-48) Monocytes (%) (Auto) 7 % (0-9) Eosinophils (%) (Auto) 2 % (0-3) Basophils (%) (Auto) 0 % (0-3) Neutrophils # (Auto) 9.7 x10^3/uL (1.8-7.7) Lymphocytes # (Auto) 0.8 x10^3/uL (1.0-4.8) Monocytes # (Auto) 0.8 x10^3/uL (0.0-1.1) Eosinophils # (Auto) 0.2 x10^3/uL (0.0-0.7) Basophils # (Auto) 0.0 x10^3/uL (0.0-0.2) Sodium Level 139 mmol/L (136-145) Potassium Level 4.0 mmol/L (3.5-5.1) Chloride Level 103 mmol/L (98-107) Carbon Dioxide Level 26 mmol/L (21-32) Anion Gap 10 (6-14) Blood Urea Nitrogen 22 mg/dL (7-20) Creatinine 0.6 mg/dL (0.6-1.0) Estimated GFR (Cockcroft-Gault) 95.5 BUN/Creatinine Ratio 37 (6-20) Glucose Level 219 mg/dL (70-99) Calcium Level 7.8 mg/dL (8.5-10.1) Total Bilirubin 3.1 mg/dL (0.2-1.0) Aspartate Amino Transf (AST/SGOT) 34 U/L (15-37) Alanine Aminotransferase (ALT/SGPT) 38 U/L (14-59) Alkaline Phosphatase 289 U/L (46-116) Total Protein 4.5 g/dL (6.4-8.2) Albumin 1.5 g/dL (3.4-5.0) Albumin/Globulin Ratio 0.5 (1.0-1.7) Test 04/22/19 07:48 04/22/19 11:39 Glucose (Fingerstick) 203 mg/dL (70-99) 319 mg/dL (70-99) Laboratory Tests Test 04/21/19 16:37 04/21/19 20:31 04/22/19 06:09 04/22/19 07:48 Glucose (Fingerstick) 255 mg/dL (70-99) 236 mg/dL (70-99) 203 mg/dL (70-99) White Blood Count 11.5 x10^3/uL (4.0-11.0) Red Blood Count 3.89 x10^6/uL (3.50-5.40) Hemoglobin 11.7 g/dL (12.0-15.5) Hematocrit 34.5 % (36.0-47.0) Mean Corpuscular Volume 89 fL (79-100) Mean Corpuscular Hemoglobin 30 pg (25-35) Mean Corpuscular Hemoglobin Concent 34 g/dL (31-37) Red Cell Distribution Width 15.1 % (11.5-14.5) Platelet Count 111 x10^3/uL (140-400) Neutrophils (%) (Auto) 85 % (31-73) Lymphocytes (%) (Auto) 7 % (24-48) Monocytes (%) (Auto) 7 % (0-9) Eosinophils (%) (Auto) 2 % (0-3) Basophils (%) (Auto) 0 % (0-3) Neutrophils # (Auto) 9.7 x10^3/uL (1.8-7.7) Lymphocytes # (Auto) 0.8 x10^3/uL (1.0-4.8) Monocytes # (Auto) 0.8 x10^3/uL (0.0-1.1) Eosinophils # (Auto) 0.2 x10^3/uL (0.0-0.7) Basophils # (Auto) 0.0 x10^3/uL (0.0-0.2) Sodium Level 139 mmol/L (136-145) Potassium Level 4.0 mmol/L (3.5-5.1) Chloride Level 103 mmol/L (98-107) Carbon Dioxide Level 26 mmol/L (21-32) Anion Gap 10 (6-14) Blood Urea Nitrogen 22 mg/dL (7-20) Creatinine 0.6 mg/dL (0.6-1.0) Estimated GFR (Cockcroft-Gault) 95.5 BUN/Creatinine Ratio 37 (6-20) Glucose Level 219 mg/dL (70-99) Calcium Level 7.8 mg/dL (8.5-10.1) Total Bilirubin 3.1 mg/dL (0.2-1.0) Aspartate Amino Transf (AST/SGOT) 34 U/L (15-37) Alanine Aminotransferase (ALT/SGPT) 38 U/L (14-59) Alkaline Phosphatase 289 U/L (46-116) Total Protein 4.5 g/dL (6.4-8.2) Albumin 1.5 g/dL (3.4-5.0) Albumin/Globulin Ratio 0.5 (1.0-1.7) Test 04/22/19 11:39 Glucose (Fingerstick) 319 mg/dL (70-99) Microbiology 04/19/19 Blood Culture - Preliminary, Resulted NO GROWTH AFTER 3 DAYS 04/17/19 Urine Culture - Final, Complete 04/17/19 Urine Culture Result 1 (SUMIT) - Final, Complete LFT's continue to fall. Vitals/I & O Vital Sign - Last 24 Hours 04/21/19 04/21/19 04/21/19 04/21/19 14:48 19:30 20:00 23:05 Temp 98.7 98.0 98.2 98.7 98.0 98.2 Pulse 78 77 69 Resp 20 20 20 B/P (MAP) 155/66 (95) 140/56 (84) 160/86 (110) Pulse Ox 95 93 94 O2 Delivery Nasal Cannula Nasal Cannula Nasal Cannula Nasal Cannula O2 Flow Rate 2.0 2.0 2.0 2.0 04/22/19 04/22/19 04/22/19 04/22/19 03:30 03:35 07:00 08:00 Temp 98.5 97.8 98.5 97.8 Pulse 71 73 Resp 22 18 B/P (MAP) 180/60 (100) 165/85 (111) Pulse Ox 86 94 97 O2 Delivery Room Air Nasal Cannula Nasal Cannula Nasal Cannula O2 Flow Rate 2.0 2.0 2.0 04/22/19 11:00 Temp 98.1 98.1 Pulse 94 Resp 20 B/P (MAP) 182/81 (114) Pulse Ox 94 O2 Delivery Nasal Cannula O2 Flow Rate 2.0 Intake and Output 04/21/19 04/21/19 04/22/19 15:00 23:00 07:00 Intake Total 0 ml 100 ml 100 ml Output Total 300 ml 750 ml Balance 0 ml -200 ml -650 ml Images On MRCP: mpression: Small right pleural effusion. Proximal pancreatic cystic lesions. Septation of one of these lesions noted. No solid component identified. These are of indeterminate significance although possibility of malignancy is not excluded. Multiple smaller cystic appearing lesions probably representing IPMN of the pancreatic body are present. Interval follow up to assess stability is recommended. If biopsy were to be performed, endoscopic ultrasound approach for the pancreatic neck cystic structures may be feasible. Multicystic appearance of the anterior segment of the right hepatic lobe. Slight heterogeneity at this site. Mild central biliary dilatation. Common hepatic duct is not well delineated and well-defined intermediate signal intensity is seen along its course. Further evaluation with contrast-enhanced MRI of the liver is recommended if able for further evaluate for possible underlying neoplastic involvement such as cholangiocarcinoma. Pancreatic cystic lesions may also be assessed on contrast enhanced MRI. Common duct not well-seen; what I can see doesn't look particularly dilated. Problem List Problems Medical Problems: (1) Abnormal CT of the abdomen Status: Acute (2) Atrial fibrillation Status: Acute (3) Elevated liver function tests Status: Acute (4) Hyperglycemia Status: Acute (5) Hypoalbuminemia Status: Acute (6) Jaundice Status: Acute (7) Nausea and vomiting Status: Acute (8) Renal insufficiency Status: Acute (9) Sepsis Status: Acute (10) Uncontrolled diabetes mellitus Status: Acute (11) Urinary tract infection Status: Acute Assessment IPMN'S? LFT"S improving; would seem to suggest some reversible issue and not just obstruction. Sepsis contributes. Plan of Care: Continue current Tx, Mgmt Plan of Care Note Will get MRI with contrast. Ideally would consider EUS re: pancreatic lesions. Dr. Barton apparently to evaluate; await this. CAMILO ANDRADE MD Apr 22, 2019 12:08
[2019-04-22] MEDS ORDERED: GADOTERATE 7.5 MMOL/15ML VIAL. IVP ONE (13:30)
[2019-04-22] MEDS: AMINO AC 3%/ELECTROLYTE/GLYCER 1,000 ML IV SCH ×2 (14:28→14:33)
[2019-04-22 15:00] VITALS: BP 167/88
--- NOTE | 2019-04-22 18:12 | RAD ---
Examination: ABDOMEN W CONTRAST History: Abnormal MRCP exam. Hepatic mass. Pancreatic cystic lesions. Comparison/Correlation: 04/21/2019 MRCP exam without contrast. Findings: Axial images of the abdomen were obtained without contrast. Multiplanar images of the abdomen were obtained following IV contrast. Imaging was performed in the arterial phase in the axial plane. Delayed imaging postcontrast of 7 minutes was also obtained. Motion limits evaluation of multiple surgeries. Small right pleural effusion is present. There is atelectasis at the right base is present. Multi septated cystic mass lesion is present primarily within the anterior segment of the right-sided lobe just superior to the level of the gallbladder fossa. Hypoenhancement lateral to this lesion is evident and heterogeneous. Enhancement at the medial margin of this mass is identified with encasement of the left hepatic biliary branches and associated dilatation. Cystic posterior aspect right hepatic lobe is present. There is suggestion of a rim-enhancing mass involving the left hepatic lobe segment 3 on axial image 28 of series 8. This measures up to 0.9 cm diameter. Heterogeneity of the left hepatic lobe is evident with hypoenhancement. Spleen is normal. Adrenal glands are unremarkable. Nonenhancing cysts involving the pancreatic neck and uncinate are present. Septation of one of pancreatic necrosis is present. Nonenhancing lesions involving the pancreatic body which probably represent IPMNs noted. Renal cysts are present. No enlarged upper abdominal lymph nodes. Gallbladder is unremarkable. Common hepatic duct and common bile duct are not well delineated due to presence of significant motion on this exam. Impression: Enhancing septated cystic hepatic mass superior to the gallbladder fossa. Primary neoplastic process is of concern including cholangiocarcinoma. Encasement of left central hepatic biliary tree is noted with associated dilatation. Small masses also present involving left hepatic lobe which may represent site of metastatic involvement. No solid component identified to involve the pancreatic cystic lesions although there is a septated cystic structure at the pancreatic neck. Smaller lesions involving the pancreas probably represent intraductal papillary mucinous neoplasms. Correlate clinically in determining further assessment with endoscopically guided ultrasound biopsy or interval follow-up imaging in 6 months to assess stability. Electronically signed by: Rogelio Ledezma MD (04/22/2019 6:09 PM) [facility]
[2019-04-22 19:15] VITALS: BP 152/72
[2019-04-22 23:00] VITALS: BP 169/75
[2019-04-23 03:45] VITALS: BP 164/70
[2019-04-23] MEDS: AMINO AC 3%/ELECTROLYTE/GLYCER 1,000 ML IV SCH (04:40)
[2019-04-23 04:48] LABS: BASO % 0 % (0-3); EOS # 0.2 x10^3/uL (0.0-0.7); EOS % 2 % (0-3); HEMATOCRIT 32.7 % (36.0-47.0); HEMOGLOBIN 11.2 g/dL (12.0-15.5); LYMPH # 0.7 x10^3/uL (1.0-4.8); LYMPH % 7 % (24-48); MEAN CORPUSCULAR HEMOGLOBIN 31 pg (25-35); MEAN CORPUSCULAR HGB CONC 34 g/dL (31-37); MEAN CORPUSCULAR VOLUME 89 fL (79-100); MONO # 0.7 x10^3/uL (0.0-1.1); MONO % 7 % (0-9); NEUT # 8.8 x10^3/uL (1.8-7.7); NEUT % 84 % (31-73); PLATELET COUNT 141 x10^3/uL (140-400); RED BLOOD COUNT 3.66 x10^6/uL (3.50-5.40); RED CELL DISTRIBUTION WIDTH 15.1 % (11.5-14.5); WHITE BLOOD COUNT 10.5 x10^3/uL (4.0-11.0)
[2019-04-23] MEDS: MEROPENEM 500 MG in IV NORMAL SALINE 50ML 50 ML IV SCH ×4 (05:01→23:46)
[2019-04-23 05:24] LABS: ALBUMIN 1.5 g/dL (3.4-5.0); ALBUMIN/GLOBULIN RATIO 0.4 (1.0-1.7); CALCIUM 7.9 mg/dL (8.5-10.1); CREATININE 0.6 mg/dL (0.6-1.0); GFR 95.5; POTASSIUM 3.8 mmol/L (3.5-5.1); TOTAL BILIRUBIN 2.3 mg/dL (0.2-1.0); TOTAL PROTEIN 5.2 g/dL (6.4-8.2)
[2019-04-23 07:00] VITALS: BP 160/64
--- NOTE | 2019-04-23 08:01 | PDOC ---
GENERAL General: vss and afebrile. awake and alert and feels better. tolerated diet yesterday per nursing and may dc ppn. lft's and hematological abnormalities improving daily, exam stable with jaundice much improved. dc planning depending on ID thoughts on ongoing antibiotics. VITAL SIGNS/I&O Vital Signs/I&O: Vital Signs Date Time Temp Pulse Resp B/P (MAP) Pulse Ox O2 Delivery O2 Flow Rate FiO2 04/23/19 03:45 97.7 73 20 164/70 (101) 96 Nasal Cannula 2.0 97.7 I & O 04/22/19 04/22/19 04/23/19 15:00 23:00 07:00 Intake Total 1050 ml 600 ml 650 ml Output Total 800 ml 700 ml Balance 1050 ml -200 ml -50 ml ALLERGIES Allergies: Allergies Coded Allergies Type Severity Reaction Last Updated Verified Penicillins Adverse Reaction Intermediate N/V 04/21/19 Yes MEDS Medications: Current Medications Medications (Trade) Dose Ordered Sig/Almaz Route PRN Reason Start Time Stop Time Status Last Admin Dose Admin Clonidine HCl (Catapres Tts-1) 1 patch Tu TD 04/22/19 09:00 04/22/19 08:19 Gadoterate Meglumine (Dotarem) 14.8 ml 1X ONCE IVP 04/22/19 13:30 04/22/19 13:31 DC 04/22/19 13:30 LAB Lab: Laboratory Tests Test 04/22/19 11:39 04/22/19 16:41 04/22/19 20:32 04/23/19 03:40 Glucose (Fingerstick) 319 mg/dL (70-99) H 229 mg/dL (70-99) H 155 mg/dL (70-99) H White Blood Count 10.5 x10^3/uL (4.0-11.0) Red Blood Count 3.66 x10^6/uL (3.50-5.40) Hemoglobin 11.2 g/dL (12.0-15.5) L Hematocrit 32.7 % (36.0-47.0) L Mean Corpuscular Volume 89 fL (79-100) Mean Corpuscular Hemoglobin 31 pg (25-35) Mean Corpuscular Hemoglobin Concent 34 g/dL (31-37) Red Cell Distribution Width 15.1 % (11.5-14.5) H Platelet Count 141 x10^3/uL (140-400) Neutrophils (%) (Auto) 84 % (31-73) H Lymphocytes (%) (Auto) 7 % (24-48) L Monocytes (%) (Auto) 7 % (0-9) Eosinophils (%) (Auto) 2 % (0-3) Basophils (%) (Auto) 0 % (0-3) Neutrophils # (Auto) 8.8 x10^3/uL (1.8-7.7) H Lymphocytes # (Auto) 0.7 x10^3/uL (1.0-4.8) L Monocytes # (Auto) 0.7 x10^3/uL (0.0-1.1) Eosinophils # (Auto) 0.2 x10^3/uL (0.0-0.7) Basophils # (Auto) 0.0 x10^3/uL (0.0-0.2) Sodium Level 136 mmol/L (136-145) Potassium Level 3.8 mmol/L (3.5-5.1) Chloride Level 101 mmol/L (98-107) Carbon Dioxide Level 30 mmol/L (21-32) Anion Gap 5 (6-14) L Blood Urea Nitrogen 21 mg/dL (7-20) H Creatinine 0.6 mg/dL (0.6-1.0) Estimated GFR (Cockcroft-Gault) 95.5 BUN/Creatinine Ratio 35 (6-20) H Glucose Level 200 mg/dL (70-99) H Calcium Level 7.9 mg/dL (8.5-10.1) L Total Bilirubin 2.3 mg/dL (0.2-1.0) H Aspartate Amino Transferase (AST) 40 U/L (15-37) H Alanine Aminotransferase (ALT) 32 U/L (14-59) Alkaline Phosphatase 271 U/L (46-116) H Total Protein 5.2 g/dL (6.4-8.2) L Albumin 1.5 g/dL (3.4-5.0) L Albumin/Globulin Ratio 0.4 (1.0-1.7) L Laboratory Tests 04/23/19 03:40 Laboratory Tests 04/23/19 03:40 VOLODYMYR HESS MD Apr 23, 2019 08:01
[2019-04-23] MEDS: amLODIPine BESYLATE 10 MG TABLET PO SCH (08:35)
[2019-04-23] MEDS: LISINOPRIL 10 MG TABLET PO SCH (08:36)
[2019-04-23] MEDS: PANTOPRAZOLE 40 MG TABLET.DR. PO SCH (08:45)
[2019-04-23] MEDS: INSULIN LISPRO 300 UNITS/3 ML VIAL. SQ SCH ×3 (08:45→17:19)
--- NOTE | 2019-04-23 09:55 | PDOC ---
Infectious Disease Note Subjective Subjective Doin gok. Wants a drink 2L O2 Denies SOA, CP, N/V/D ROS ROS o/w neg Vital Sign Vital Signs Vital Signs Date Time Temp Pulse Resp B/P (MAP) Pulse Ox O2 Delivery O2 Flow Rate FiO2 04/23/19 08:36 74 160/64 04/23/19 07:00 98.2 18 98 Nasal Cannula 2.0 98.2 Physical Exam PHYSICAL EXAM GENERAL: Propped up in bed, alert, NAD HENT: Oral cavity very dry. + dentures NECK: Supple LUNGS: Clear - on 02 CV: S1, S2 ABDOMEN: Soft and nontender, obese EXT: No gross edema or cyanosis SKIN: warm to touch. No signs of rash TOOL LIAISON: Alert, answering questions appropriately PIV Labs Lab Laboratory Tests Test 04/22/19 11:39 04/22/19 16:41 04/22/19 20:32 04/23/19 03:40 Glucose (Fingerstick) 319 mg/dL (70-99) 229 mg/dL (70-99) 155 mg/dL (70-99) White Blood Count 10.5 x10^3/uL (4.0-11.0) Red Blood Count 3.66 x10^6/uL (3.50-5.40) Hemoglobin 11.2 g/dL (12.0-15.5) Hematocrit 32.7 % (36.0-47.0) Mean Corpuscular Volume 89 fL (79-100) Mean Corpuscular Hemoglobin 31 pg (25-35) Mean Corpuscular Hemoglobin Concent 34 g/dL (31-37) Red Cell Distribution Width 15.1 % (11.5-14.5) Platelet Count 141 x10^3/uL (140-400) Neutrophils (%) (Auto) 84 % (31-73) Lymphocytes (%) (Auto) 7 % (24-48) Monocytes (%) (Auto) 7 % (0-9) Eosinophils (%) (Auto) 2 % (0-3) Basophils (%) (Auto) 0 % (0-3) Neutrophils # (Auto) 8.8 x10^3/uL (1.8-7.7) Lymphocytes # (Auto) 0.7 x10^3/uL (1.0-4.8) Monocytes # (Auto) 0.7 x10^3/uL (0.0-1.1) Eosinophils # (Auto) 0.2 x10^3/uL (0.0-0.7) Basophils # (Auto) 0.0 x10^3/uL (0.0-0.2) Sodium Level 136 mmol/L (136-145) Potassium Level 3.8 mmol/L (3.5-5.1) Chloride Level 101 mmol/L (98-107) Carbon Dioxide Level 30 mmol/L (21-32) Anion Gap 5 (6-14) Blood Urea Nitrogen 21 mg/dL (7-20) Creatinine 0.6 mg/dL (0.6-1.0) Estimated GFR (Cockcroft-Gault) 95.5 BUN/Creatinine Ratio 35 (6-20) Glucose Level 200 mg/dL (70-99) Calcium Level 7.9 mg/dL (8.5-10.1) Total Bilirubin 2.3 mg/dL (0.2-1.0) Aspartate Amino Transf (AST/SGOT) 40 U/L (15-37) Alanine Aminotransferase (ALT/SGPT) 32 U/L (14-59) Alkaline Phosphatase 271 U/L (46-116) Total Protein 5.2 g/dL (6.4-8.2) Albumin 1.5 g/dL (3.4-5.0) Albumin/Globulin Ratio 0.4 (1.0-1.7) Test 04/23/19 07:31 Glucose (Fingerstick) 207 mg/dL (70-99) Micro MRI 04/22 Impression: Enhancing septated cystic hepatic mass superior to the gallbladder fossa. Primary neoplastic process is of concern including cholangiocarcinoma. Encasement of left central hepatic biliary tree is noted with associated dilatation. Small masses also present involving left hepatic lobe which may represent site of metastatic involvement. No solid component identified to involve the pancreatic cystic lesions although there is a septated cystic structure at the pancreatic neck. Smaller lesions involving the pancreas probably represent intraductal papillary mucinous neoplasms. Correlate clinically in determining further assessment with endoscopically guided ultrasound biopsy or interval follow-up imaging in 6 months to assess stability. Escherichia coli Performed at: DA - [facility] [address] [facility] [address], [place], [place] [id number] Breaster: CODY Andrews MD, Phone: [phone] ANTIMICROBIAL SUSCEPTIBILITY Final Comment S = Susceptible; I = Intermediate; R = Resistant P = Positive; N = Negative MICS are expressed in micrograms per mL Antibiotic RSLT#1 RSLT#2 RSLT#3 RSLT#4 Amoxicillin/Clavulanic Acid I =16 Ampicillin R>=32 Cefepime S<=0.12 Ceftriaxone S<=0.25 Cefuroxime S =4 Ciprofloxacin S<=0.25 Ertapenem S<=0.12 Gentamicin I =8 Imipenem S<=0.25 Levofloxacin S<=0.12 Meropenem S<=0.25 Nitrofurantoin S<=16 Piperacillin/Tazobactam S<=4 Tetracycline R>=16 Tobramycin R>=16 Trimethoprim/Sulfa S<=20 BLOOD CULTURE LC Final Preliminary report Final report BLD CULT RESULT 1 Final Gram negative rods Escherichia coli Performed at: - [facility] [place] [address] [facility] [address], [place], [place] [id number] Breaster: CODY Andrews MD, Phone: [phone] ANTIMICROBIAL SUSCEPTIBILITY Final Comment S = Susceptible; I = Intermediate; R = Resistant P = Positive; N = Negative MICS are expressed in micrograms per mL Antibiotic RSLT#1 RSLT#2 RSLT#3 RSLT#4 Amoxicillin/Clavulanic Acid I =16 Ampicillin R>=32 Cefepime S<=0.12 Ceftriaxone S<=0.25 Cefuroxime S =4 Ciprofloxacin S<=0.25 Ertapenem S<=0.12 Gentamicin I =8 Imipenem S<=0.25 Levofloxacin S<=0.12 Meropenem S<=0.25 Nitrofurantoin S<=16 Piperacillin/Tazobactam S<=4 Tetracycline R>=16 Tobramycin R>=16 Trimethoprim/Sulfa S<=20 Microbiology 04/19/19 Blood Culture - Preliminary, Resulted NO GROWTH AFTER 2 DAYS 04/17/19 Urine Culture - Final, Complete 04/17/19 Urine Culture Result 1 (SUMIT) - Final, Complete Objective Assessment Ecoli sepsis from 04/17. Fever abx chged to merrem 04/19 - better Leukocytosis - mild increase today PENICILLIN ALLERGY WITH NAUSEA, VOMITING. Tolerated cefepime Severe Protein Malnutrition Pyuria. The patient does not have any urinary symptoms. UC lactobacillus Abnormal LFTs with abnormal CT. pancreatic lesion, CA 19-9 is 114 Thrombocytopenia - better Dysphagia - NPO Acute kidney injury - better Hyponatremia - corrected Nausea, vomiting, coffee ground emesis, diarrhea - better Uncontrolled diabetes mellitus. Off medications Pulmonary infiltrate, now clear High proBNP. Protein-calorie malnutrition. Lactic acidosis - better H/o Dementia Plan Plan of Care cont merrem (04/19) Awaiting further GI and surgical f/u F/u labs Maintain aspiration precaution. Continue supportive care. D/w nursing MARILEE DO MD Apr 23, 2019 09:55
[2019-04-23 11:00] VITALS: BP 160/64
--- NOTE | 2019-04-23 11:02 | PDOC ---
Subjective: Subjective: Says she's doing good and eating. Objective: Objective: Nurse says eating well. Vital Signs: Vital Signs Date Time Temp Pulse Resp B/P (MAP) Pulse Ox O2 Delivery O2 Flow Rate FiO2 04/23/19 08:36 74 160/64 04/23/19 08:00 Nasal Cannula 2.0 04/23/19 07:00 98.2 18 98 98.2 Labs: Laboratory Tests Test 04/22/19 11:39 04/22/19 16:41 04/22/19 20:32 04/23/19 03:40 Glucose (Fingerstick) 319 mg/dL 229 mg/dL 155 mg/dL White Blood Count 10.5 x10^3/uL Red Blood Count 3.66 x10^6/uL Hemoglobin 11.2 g/dL Hematocrit 32.7 % Mean Corpuscular Volume 89 fL Mean Corpuscular Hemoglobin 31 pg Mean Corpuscular Hemoglobin Concent 34 g/dL Red Cell Distribution Width 15.1 % Platelet Count 141 x10^3/uL Neutrophils (%) (Auto) 84 % Lymphocytes (%) (Auto) 7 % Monocytes (%) (Auto) 7 % Eosinophils (%) (Auto) 2 % Basophils (%) (Auto) 0 % Neutrophils # (Auto) 8.8 x10^3/uL Lymphocytes # (Auto) 0.7 x10^3/uL Monocytes # (Auto) 0.7 x10^3/uL Eosinophils # (Auto) 0.2 x10^3/uL Basophils # (Auto) 0.0 x10^3/uL Sodium Level 136 mmol/L Potassium Level 3.8 mmol/L Chloride Level 101 mmol/L Carbon Dioxide Level 30 mmol/L Anion Gap 5 Blood Urea Nitrogen 21 mg/dL Creatinine 0.6 mg/dL Estimated GFR (Cockcroft-Gault) 95.5 BUN/Creatinine Ratio 35 Glucose Level 200 mg/dL Calcium Level 7.9 mg/dL Total Bilirubin 2.3 mg/dL Aspartate Amino Transf (AST/SGOT) 40 U/L Alanine Aminotransferase (ALT/SGPT) 32 U/L Alkaline Phosphatase 271 U/L Total Protein 5.2 g/dL Albumin 1.5 g/dL Albumin/Globulin Ratio 0.4 Test 04/23/19 07:31 Glucose (Fingerstick) 207 mg/dL Imaging: Abd MRI Impression: Enhancing septated cystic hepatic mass superior to the gallbladder fossa. Primary neoplastic process is of concern including cholangiocarcinoma. Encasem ent of left central hepatic biliary tree is noted with associated dilatation. Small masses also present involving left hepatic lobe which may represent site of metastatic involvement. No solid component identified to involve the pancreatic cystic lesions although there is a septated cystic structure at the pancreatic neck. Smaller lesions involving the pancreas probably represent intraductal papillary mucinous neoplasms. Correlate clinically in determining further assessment with endoscopically guided ultrasound biopsy or interval follow-up imaging in 6 months to assess stability. PE: GEN: NAD LUNGS: CTAB HEART: RRR ABD: S/ND/NT NEURO/PSYCH: A & O 3 A/P: Elevated LFTs - better Elevated CA19-9, abnormal abd MRI -- Surgery following. ?EUS JENNIFER DORANTES Apr 23, 2019 11:02
--- NOTE | 2019-04-23 12:07 | PDOC ---
SURGICAL PROGRESS NOTE Subjective Pt without c/o, gustavo diet Vital Signs Vital Signs Date Time Temp Pulse Resp B/P (MAP) Pulse Ox O2 Delivery O2 Flow Rate FiO2 04/23/19 11:00 97.8 73 18 160/64 (96) 98 Nasal Cannula 2.0 97.8 I&O Intake and Output 04/23/19 07:00 Intake Total 2300 ml Output Total 1500 ml Balance 800 ml Intake Oral 1100 ml IV Total 1200 ml Output Urine Total 1500 ml General: Alert, Cooperative, No acute distress, Other (no jaudice) Abdomen: Soft, No tenderness Labs Laboratory Tests Test 04/21/19 16:37 04/21/19 20:31 04/22/19 06:09 04/22/19 07:48 Glucose (Fingerstick) 255 mg/dL (70-99) 236 mg/dL (70-99) 203 mg/dL (70-99) White Blood Count 11.5 x10^3/uL (4.0-11.0) Red Blood Count 3.89 x10^6/uL (3.50-5.40) Hemoglobin 11.7 g/dL (12.0-15.5) Hematocrit 34.5 % (36.0-47.0) Mean Corpuscular Volume 89 fL (79-100) Mean Corpuscular Hemoglobin 30 pg (25-35) Mean Corpuscular Hemoglobin Concent 34 g/dL (31-37) Red Cell Distribution Width 15.1 % (11.5-14.5) Platelet Count 111 x10^3/uL (140-400) Neutrophils (%) (Auto) 85 % (31-73) Lymphocytes (%) (Auto) 7 % (24-48) Monocytes (%) (Auto) 7 % (0-9) Eosinophils (%) (Auto) 2 % (0-3) Basophils (%) (Auto) 0 % (0-3) Neutrophils # (Auto) 9.7 x10^3/uL (1.8-7.7) Lymphocytes # (Auto) 0.8 x10^3/uL (1.0-4.8) Monocytes # (Auto) 0.8 x10^3/uL (0.0-1.1) Eosinophils # (Auto) 0.2 x10^3/uL (0.0-0.7) Basophils # (Auto) 0.0 x10^3/uL (0.0-0.2) Sodium Level 139 mmol/L (136-145) Potassium Level 4.0 mmol/L (3.5-5.1) Chloride Level 103 mmol/L (98-107) Carbon Dioxide Level 26 mmol/L (21-32) Anion Gap 10 (6-14) Blood Urea Nitrogen 22 mg/dL (7-20) Creatinine 0.6 mg/dL (0.6-1.0) Estimated GFR (Cockcroft-Gault) 95.5 BUN/Creatinine Ratio 37 (6-20) Glucose Level 219 mg/dL (70-99) Calcium Level 7.8 mg/dL (8.5-10.1) Total Bilirubin 3.1 mg/dL (0.2-1.0) Aspartate Amino Transf (AST/SGOT) 34 U/L (15-37) Alanine Aminotransferase (ALT/SGPT) 38 U/L (14-59) Alkaline Phosphatase 289 U/L (46-116) Total Protein 4.5 g/dL (6.4-8.2) Albumin 1.5 g/dL (3.4-5.0) Albumin/Globulin Ratio 0.5 (1.0-1.7) Test 04/22/19 11:39 04/22/19 16:41 04/22/19 20:32 04/23/19 03:40 Glucose (Fingerstick) 319 mg/dL (70-99) 229 mg/dL (70-99) 155 mg/dL (70-99) White Blood Count 10.5 x10^3/uL (4.0-11.0) Red Blood Count 3.66 x10^6/uL (3.50-5.40) Hemoglobin 11.2 g/dL (12.0-15.5) Hematocrit 32.7 % (36.0-47.0) Mean Corpuscular Volume 89 fL (79-100) Mean Corpuscular Hemoglobin 31 pg (25-35) Mean Corpuscular Hemoglobin Concent 34 g/dL (31-37) Red Cell Distribution Width 15.1 % (11.5-14.5) Platelet Count 141 x10^3/uL (140-400) Neutrophils (%) (Auto) 84 % (31-73) Lymphocytes (%) (Auto) 7 % (24-48) Monocytes (%) (Auto) 7 % (0-9) Eosinophils (%) (Auto) 2 % (0-3) Basophils (%) (Auto) 0 % (0-3) Neutrophils # (Auto) 8.8 x10^3/uL (1.8-7.7) Lymphocytes # (Auto) 0.7 x10^3/uL (1.0-4.8) Monocytes # (Auto) 0.7 x10^3/uL (0.0-1.1) Eosinophils # (Auto) 0.2 x10^3/uL (0.0-0.7) Basophils # (Auto) 0.0 x10^3/uL (0.0-0.2) Sodium Level 136 mmol/L (136-145) Potassium Level 3.8 mmol/L (3.5-5.1) Chloride Level 101 mmol/L (98-107) Carbon Dioxide Level 30 mmol/L (21-32) Anion Gap 5 (6-14) Blood Urea Nitrogen 21 mg/dL (7-20) Creatinine 0.6 mg/dL (0.6-1.0) Estimated GFR (Cockcroft-Gault) 95.5 BUN/Creatinine Ratio 35 (6-20) Glucose Level 200 mg/dL (70-99) Calcium Level 7.9 mg/dL (8.5-10.1) Total Bilirubin 2.3 mg/dL (0.2-1.0) Aspartate Amino Transf (AST/SGOT) 40 U/L (15-37) Alanine Aminotransferase (ALT/SGPT) 32 U/L (14-59) Alkaline Phosphatase 271 U/L (46-116) Total Protein 5.2 g/dL (6.4-8.2) Albumin 1.5 g/dL (3.4-5.0) Albumin/Globulin Ratio 0.4 (1.0-1.7) Test 04/23/19 07:31 Glucose (Fingerstick) 207 mg/dL (70-99) Laboratory Tests Test 04/22/19 16:41 04/22/19 20:32 04/23/19 03:40 04/23/19 07:31 Glucose (Fingerstick) 229 mg/dL (70-99) 155 mg/dL (70-99) 207 mg/dL (70-99) White Blood Count 10.5 x10^3/uL (4.0-11.0) Red Blood Count 3.66 x10^6/uL (3.50-5.40) Hemoglobin 11.2 g/dL (12.0-15.5) Hematocrit 32.7 % (36.0-47.0) Mean Corpuscular Volume 89 fL (79-100) Mean Corpuscular Hemoglobin 31 pg (25-35) Mean Corpuscular Hemoglobin Concent 34 g/dL (31-37) Red Cell Distribution Width 15.1 % (11.5-14.5) Platelet Count 141 x10^3/uL (140-400) Neutrophils (%) (Auto) 84 % (31-73) Lymphocytes (%) (Auto) 7 % (24-48) Monocytes (%) (Auto) 7 % (0-9) Eosinophils (%) (Auto) 2 % (0-3) Basophils (%) (Auto) 0 % (0-3) Neutrophils # (Auto) 8.8 x10^3/uL (1.8-7.7) Lymphocytes # (Auto) 0.7 x10^3/uL (1.0-4.8) Monocytes # (Auto) 0.7 x10^3/uL (0.0-1.1) Eosinophils # (Auto) 0.2 x10^3/uL (0.0-0.7) Basophils # (Auto) 0.0 x10^3/uL (0.0-0.2) Sodium Level 136 mmol/L (136-145) Potassium Level 3.8 mmol/L (3.5-5.1) Chloride Level 101 mmol/L (98-107) Carbon Dioxide Level 30 mmol/L (21-32) Anion Gap 5 (6-14) Blood Urea Nitrogen 21 mg/dL (7-20) Creatinine 0.6 mg/dL (0.6-1.0) Estimated GFR (Cockcroft-Gault) 95.5 BUN/Creatinine Ratio 35 (6-20) Glucose Level 200 mg/dL (70-99) Calcium Level 7.9 mg/dL (8.5-10.1) Total Bilirubin 2.3 mg/dL (0.2-1.0) Aspartate Amino Transf (AST/SGOT) 40 U/L (15-37) Alanine Aminotransferase (ALT/SGPT) 32 U/L (14-59) Alkaline Phosphatase 271 U/L (46-116) Total Protein 5.2 g/dL (6.4-8.2) Albumin 1.5 g/dL (3.4-5.0) Albumin/Globulin Ratio 0.4 (1.0-1.7) Problem List Problems Medical Problems: (1) Abnormal CT of the abdomen Status: Acute (2) Atrial fibrillation Status: Acute (3) Elevated liver function tests Status: Acute (4) Hyperglycemia Status: Acute (5) Hypoalbuminemia Status: Acute (6) Jaundice Status: Acute (7) Nausea and vomiting Status: Acute (8) Renal insufficiency Status: Acute (9) Sepsis Status: Acute (10) Uncontrolled diabetes mellitus Status: Acute (11) Urinary tract infection Status: Acute Assessment/Plan liver/pancreas abnormality MRI is not diagnostic and some concerning features. Pt clinically is improved and OK to consider d/c. Ultimately, diagnosis may best be obtained by EUS. However, this probably would not change plans, as pt is poor surgical/adjuvant therapy candidate. D/w pt's family, they will consider this. NIKA KNIGHT MD Apr 23, 2019 12:07
[2019-04-23 15:00] VITALS: BP 151/68
[2019-04-23 18:45] VITALS: BP 137/53
--- NOTE | 2019-04-23 19:15 | NUR ---
Pt in bed assessment completed vss poc explained pt concerned about dc to snu and refuses.Pt daughter called with concerns will resume care and continue to monitor pt.call light in reach.
[2019-04-23 22:39] VITALS: BP 149/81
[2019-04-24 02:31] VITALS: BP 133/68
[2019-04-24] MEDS: PANTOPRAZOLE 40 MG TABLET.DR. PO SCH (05:58)
[2019-04-24] MEDS: MEROPENEM 500 MG in IV NORMAL SALINE 50ML 50 ML IV SCH (05:59)
[2019-04-24 07:00] VITALS: BP 169/73
--- NOTE | 2019-04-24 08:03 | PDOC ---
Infectious Disease Note Subjective Subjective Doing well - Slept well and has been eating Denies F/C/S/N/V/D/Rash/abd painSOA, CP, dysuria ROS ROS o/w neg Vital Sign Vital Signs Vital Signs Date Time Temp Pulse Resp B/P (MAP) Pulse Ox O2 Delivery O2 Flow Rate FiO2 04/24/19 02:31 98.8 70 18 133/68 (89) 98 Nasal Cannula 2.0 98.8 Physical Exam PHYSICAL EXAM GENERAL: Propped up in bed, alert, NAD. looks well HENT: Oral cavity very dry. + dentures NECK: Supple LUNGS: Clear - on 02 CV: S1, S2 ABDOMEN: Soft and nontender, obese EXT: No gross edema or cyanosis SKIN: warm to touch. No signs of rash DIRECTOR OF INSTITUTIONAL SALES: Alert, answering questions appropriately PIV Labs Lab Laboratory Tests Test 04/23/19 11:32 04/23/19 17:12 04/23/19 20:39 Glucose (Fingerstick) 165 mg/dL (70-99) 167 mg/dL (70-99) 175 mg/dL (70-99) Micro MRI 04/22 Impression: Enhancing septated cystic hepatic mass superior to the gallbladder fossa. Primary neoplastic process is of concern including cholangiocarcinoma. Encasement of left central hepatic biliary tree is noted with associated dilatation. Small masses also present involving left hepatic lobe which may represent site of metastatic involvement. No solid component identified to involve the pancreatic cystic lesions although there is a septated cystic structure at the pancreatic neck. Smaller lesions involving the pancreas probably represent intraductal papillary mucinous neoplasms. Correlate clinically in determining further assessment with endoscopically guided ultrasound biopsy or interval follow-up imaging in 6 months to assess stability. Escherichia coli Performed at: - [facility] [id number], [place], [place] [id number] Carbon Rod Inserter: CODY Andrews MD, Phone: [phone] ANTIMICROBIAL SUSCEPTIBILITY Final Comment S = Susceptible; I = Intermediate; R = Resistant P = Positive; N = Negative MICS are expressed in micrograms per mL Antibiotic RSLT#1 RSLT#2 RSLT#3 RSLT#4 Amoxicillin/Clavulanic Acid I =16 Ampicillin R>=32 Cefepime S<=0.12 Ceftriaxone S<=0.25 Cefuroxime S =4 Ciprofloxacin S<=0.25 Ertapenem S<=0.12 Gentamicin I =8 Imipenem S<=0.25 Levofloxacin S<=0.12 Meropenem S<=0.25 Nitrofurantoin S<=16 Piperacillin/Tazobactam S<=4 Tetracycline R>=16 Tobramycin R>=16 Trimethoprim/Sulfa S<=20 BLOOD CULTURE LC Final Preliminary report Final report BLD CULT RESULT 1 Final Gram negative rods Escherichia coli Performed at: DA - [facility] [address], [place], [place] [id number] Carbon Rod Inserter: CODY Andrews MD, Phone: [phone] ANTIMICROBIAL SUSCEPTIBILITY Final Comment S = Susceptible; I = Intermediate; R = Resistant P = Positive; N = Negative MICS are expressed in micrograms per mL Antibiotic RSLT#1 RSLT#2 RSLT#3 RSLT#4 Amoxicillin/Clavulanic Acid I =16 Ampicillin R>=32 Cefepime S<=0.12 Ceftriaxone S<=0.25 Cefuroxime S =4 Ciprofloxacin S<=0.25 Ertapenem S<=0.12 Gentamicin I =8 Imipenem S<=0.25 Levofloxacin S<=0.12 Meropenem S<=0.25 Nitrofurantoin S<=16 Piperacillin/Tazobactam S<=4 Tetracycline R>=16 Tobramycin R>=16 Trimethoprim/Sulfa S<=20 Microbiology 04/19/19 Blood Culture - Preliminary, Resulted NO GROWTH AFTER 2 DAYS 04/17/19 Urine Culture - Final, Complete 04/17/19 Urine Culture Result 1 (SUMIT) - Final, Complete Objective Assessment Ecoli sepsis from 04/17. Fever abx chged to merrem 04/19 - better Leukocytosis - better PENICILLIN ALLERGY WITH NAUSEA, VOMITING. Tolerated cefepime Severe Protein Malnutrition Pyuria. The patient does not have any urinary symptoms. UC lactobacillus Abnormal LFTs with abnormal CT. pancreatic lesion, CA 19-9 is 114 Thrombocytopenia - better Dysphagia - NPO Acute kidney injury - better Hyponatremia - corrected Nausea, vomiting, coffee ground emesis, diarrhea - better Uncontrolled diabetes mellitus. Off medications Pulmonary infiltrate, now clear High proBNP. Protein-calorie malnutrition. Lactic acidosis - better H/o Dementia Plan Plan of Care D/cont merrem (04/19 04/24) taper to Rocephin now No surgery planned and GI rec - EUS She is to go to [facility] so wound cont Rocephin through 04/28 to complete 10 days of therapy Ok to transfer from ID standpoint Please call with questions D/w nursing MARILEE DO MD Apr 24, 2019 08:03
[2019-04-24] MEDS: amLODIPine BESYLATE 10 MG TABLET PO SCH (08:23)
[2019-04-24] MEDS: LISINOPRIL 10 MG TABLET PO SCH (08:24)
[2019-04-24] MEDS: INSULIN LISPRO 300 UNITS/3 ML VIAL. SQ SCH ×3 (08:30→17:18)
--- NOTE | 2019-04-24 08:44 | PDOC ---
GENERAL General: vss and afebrile awake and alert and denies complaints. chest clear, heart regu lar, abdomen benign. taking po ok. sugars decent. dc planning underway with snu vs home with home health with ongoing iv antibiotics. VITAL SIGNS/I&O Vital Signs/I&O: Vital Signs Date Time Temp Pulse Resp B/P (MAP) Pulse Ox O2 Delivery O2 Flow Rate FiO2 04/24/19 08:24 85 169/73 04/24/19 07:00 98.0 18 92 Room Air 98.0 04/24/19 02:31 2.0 I & O 04/23/19 04/23/19 04/24/19 15:00 23:00 07:00 Intake Total 290 ml 400 ml 400 ml Output Total 600 ml 400 ml Balance -310 ml 0 ml 400 ml ALLERGIES Allergies: Allergies Coded Allergies Type Severity Reaction Last Updated Verified Penicillins Adverse Reaction Intermediate N/V 04/21/19 Yes MEDS Medications: Current Medications Medications (Trade) Dose Ordered Sig/Almaz Route PRN Reason Start Time Stop Time Status Last Admin Dose Admin Amlodipine Besylate (Norvasc) 10 mg DAILY PO 04/23/19 09:00 04/24/19 08:23 Lisinopril (Prinivil) 10 mg DAILY PO 04/23/19 09:00 04/24/19 08:24 LAB Lab: Laboratory Tests Test 04/23/19 11:32 04/23/19 17:12 04/23/19 20:39 04/24/19 07:14 Glucose (Fingerstick) 165 mg/dL (70-99) H 167 mg/dL (70-99) H 175 mg/dL (70-99) H 182 mg/dL (70-99) H VOLODYMYR HESS MD Apr 24, 2019 08:44
--- NOTE | 2019-04-24 10:02 | PDOC ---
MARYLIN VERDUGO LAND ACQUISITION MANAGER 04/24/19 1002: SURGICAL PROGRESS NOTE Subjective resting plans for [facility] Vital Signs Vital Signs Date Time Temp Pulse Resp B/P (MAP) Pulse Ox O2 Delivery O2 Flow Rate FiO2 04/24/19 08:24 85 169/73 04/24/19 07:00 98.0 18 92 Room Air 98.0 04/24/19 02:31 2.0 I&O Intake and Output 04/24/19 07:00 Intake Total 1090 ml Output Total 1000 ml Balance 90 ml Intake Oral 800 ml IV Total 290 ml Output Urine Total 1000 ml # Voids 4 General: Cooperative, No acute distress Abdomen: Soft, No tenderness Labs Laboratory Tests Test 04/22/19 11:39 04/22/19 16:41 04/22/19 20:32 04/23/19 03:40 Glucose (Fingerstick) 319 mg/dL (70-99) 229 mg/dL (70-99) 155 mg/dL (70-99) White Blood Count 10.5 x10^3/uL (4.0-11.0) Red Blood Count 3.66 x10^6/uL (3.50-5.40) Hemoglobin 11.2 g/dL (12.0-15.5) Hematocrit 32.7 % (36.0-47.0) Mean Corpuscular Volume 89 fL (79-100) Mean Corpuscular Hemoglobin 31 pg (25-35) Mean Corpuscular Hemoglobin Concent 34 g/dL (31-37) Red Cell Distribution Width 15.1 % (11.5-14.5) Platelet Count 141 x10^3/uL (140-400) Neutrophils (%) (Auto) 84 % (31-73) Lymphocytes (%) (Auto) 7 % (24-48) Monocytes (%) (Auto) 7 % (0-9) Eosinophils (%) (Auto) 2 % (0-3) Basophils (%) (Auto) 0 % (0-3) Neutrophils # (Auto) 8.8 x10^3/uL (1.8-7.7) Lymphocytes # (Auto) 0.7 x10^3/uL (1.0-4.8) Monocytes # (Auto) 0.7 x10^3/uL (0.0-1.1) Eosinophils # (Auto) 0.2 x10^3/uL (0.0-0.7) Basophils # (Auto) 0.0 x10^3/uL (0.0-0.2) Sodium Level 136 mmol/L (136-145) Potassium Level 3.8 mmol/L (3.5-5.1) Chloride Level 101 mmol/L (98-107) Carbon Dioxide Level 30 mmol/L (21-32) Anion Gap 5 (6-14) Blood Urea Nitrogen 21 mg/dL (7-20) Creatinine 0.6 mg/dL (0.6-1.0) Estimated GFR (Cockcroft-Gault) 95.5 BUN/Creatinine Ratio 35 (6-20) Glucose Level 200 mg/dL (70-99) Calcium Level 7.9 mg/dL (8.5-10.1) Total Bilirubin 2.3 mg/dL (0.2-1.0) Aspartate Amino Transf (AST/SGOT) 40 U/L (15-37) Alanine Aminotransferase (ALT/SGPT) 32 U/L (14-59) Alkaline Phosphatase 271 U/L (46-116) Total Protein 5.2 g/dL (6.4-8.2) Albumin 1.5 g/dL (3.4-5.0) Albumin/Globulin Ratio 0.4 (1.0-1.7) Test 04/23/19 07:31 04/23/19 11:32 04/23/19 17:12 04/23/19 20:39 Glucose (Fingerstick) 207 mg/dL (70-99) 165 mg/dL (70-99) 167 mg/dL (70-99) 175 mg/dL (70-99) Test 04/24/19 07:14 Glucose (Fingerstick) 182 mg/dL (70-99) Laboratory Tests Test 04/23/19 11:32 04/23/19 17:12 04/23/19 20:39 04/24/19 07:14 Glucose (Fingerstick) 165 mg/dL (70-99) 167 mg/dL (70-99) 175 mg/dL (70-99) 182 mg/dL (70-99) Problem List Problems Medical Problems: (1) Abnormal CT of the abdomen Status: Acute (2) Atrial fibrillation Status: Acute (3) Elevated liver function tests Status: Acute (4) Hyperglycemia Status: Acute (5) Hypoalbuminemia Status: Acute (6) Jaundice Status: Acute (7) Nausea and vomiting Status: Acute (8) Renal insufficiency Status: Acute (9) Sepsis Status: Acute (10) Uncontrolled diabetes mellitus Status: Acute (11) Urinary tract infection Status: Acute Assessment/Plan supportive care consider EUS, dr knight d/w pt and family yesterday NIKA KNIGHT MD 04/24/19 1437: SURGICAL PROGRESS NOTE Assessment/Plan Pt seen and examined. Agree with Ms. Verdugo's note Pt without c/o abd soft, ND, NTTP OK to d/c, f/u PRN if interested in pursuing EUS MARYLIN VERDUGO APRN Apr 24, 2019 10:02 NIKA KNIGHT MD Apr 24, 2019 14:37
[2019-04-24] MEDS: cefTRIAXone IV Push 2 GM VIAL. IVP SCH (10:14)
[2019-04-24 11:00] VITALS: BP 158/59
--- NOTE | 2019-04-24 11:07 | PDOC ---
Subjective: Subjective: Talking on the phone. Objective: Objective: D/w nurse - plans to DC to [facility] w/ IV atbx. Vital Signs: Vital Signs Date Time Temp Pulse Resp B/P (MAP) Pulse Ox O2 Delivery O2 Flow Rate FiO2 04/24/19 08:24 85 169/73 04/24/19 07:00 98.0 18 92 Room Air 98.0 04/24/19 02:31 2.0 Labs: Laboratory Tests Test 04/23/19 11:32 04/23/19 17:12 04/23/19 20:39 04/24/19 07:14 Glucose (Fingerstick) 165 mg/dL (70-99) 167 mg/dL (70-99) 175 mg/dL (70-99) 182 mg/dL (70-99) PE: GEN: NAD - on the phone NEURO/PSYCH: A & O 3 A/P: Sepsis/UTI Elevated LFTs - improved Abnormal abd MRI - possible pancreatic/hepatic malignancy -- DC plans as above. Dr. Barton d/w family re: possible EUS. JENNIFER DORANTES Apr 24, 2019 11:07
--- NOTE | 2019-04-24 12:35 | NUR ---
SS following up with discharge planning. Pt accepted at [facility], ; fax [phone]. Physician notified. SS will await discharge orders and will proceed accordingly.
--- NOTE | 2019-04-24 13:45 | NUR ---
Wound Care: patient seen per f/u of Wound consult for buttocks PU. Stage 3 PU on buttocks/coccyx, cleansed and redressed with recommendations of Calazime cream. patient currently on a P500 bed at this time. patient needs to be turning every 2 hours, patient turned to the left side at this time. No other wounds noted on skin assessment. SOPHIE Mar notified of POC. Wound care will follow up on 04/30.
[2019-04-24 15:00] VITALS: BP 153/61
[2019-04-24 19:00] VITALS: BP 135/81
--- NOTE | 2019-04-24 19:10 | NUR ---
Assessment completed vss poc explained pt denied pain. Call light in reach will resume care and continue to monitor pt.
[2019-04-24] MEDS: LACTOBACILLUS RHAMNOSUS GG 1 CAPSULE. PO SCH (21:03)
[2019-04-24 23:00] VITALS: BP 140/63
[2019-04-25 03:18] VITALS: BP 160/76
[2019-04-25] MEDS: PANTOPRAZOLE 40 MG TABLET.DR. PO SCH (05:32)
[2019-04-25 07:00] VITALS: BP 140/64
[2019-04-25] MEDS ORDERED: PANT40TA77 PO (08:08)
[2019-04-25] MEDS ORDERED: GLIM4TAB PO (08:08)
[2019-04-25] MEDS ORDERED: CEFTRIAXONE SODIUM IVP (08:08)
--- NOTE | 2019-04-25 08:09 | SNU/HH DC ---
DISCHARGE ORDERS DISCHARGE INFORMATION: DISCHARGE DATE: Apr 25, 2019 FINAL DIAGNOSIS Problems Medical Problems: (1) Abnormal CT of the abdomen Status: Acute (2) Atrial fibrillation Status: Acute (3) Elevated liver function tests Status: Acute (4) Hyperglycemia Status: Acute (5) Hypoalbuminemia Status: Acute (6) Jaundice Status: Acute (7) Nausea and vomiting Status: Acute (8) Renal insufficiency Status: Acute (9) Sepsis Status: Acute (10) Uncontrolled diabetes mellitus Status: Acute (11) Urinary tract infection Status: Acute CONDITION ON DISCHARGE: Stable CODE STATUS: Code Status: Full PRISON: SNF STAY <30 DAYS: Yes HOSPICE: HOSPICE: No HOSPICE EVAL & TREAT: No LTAC: ADMIT TO LTAC: No POST DISCHARGE ORDERS: ACTIVITY ORDERS: No restrictions WEIGHT BEARING STATUS: No restrictions DIET AFTER DISCHARGE: Regular CHECKS AFTER DISCHARGE: CHECKS AFTER DISCHARGE: Check blood press - daily, Check blood sugar, ac/hs TREATMENT/EQUIPMENT ORDERS: Physical Therapy For: Evalulation/Treatment Occupational Therapy For: Evaluation/Treatment DISCHARGE MEDICATIONS: Home Meds Reported Medications Lisinopril (LISINOPRIL) 10 Mg Tablet, 1 TAB PO DAILY for HTN, #30 TAB 5 Refills 04/17/19 Amlodipine Besylate (AMLODIPINE BESYLATE) 10 Mg Tablet, 10 MG PO DAILY, TAB 11/22/13 VOLODYMYR HESS MD Apr 25, 2019 08:09
--- NOTE | 2019-04-25 08:34 | NUR ---
SS following up with discharge planning. Discharge orders received for [facility], ; fax [phone]. SS phoned and faxed discharge orders to [facility]. Pt will discharge today and go to [facility] at 1100 via [facility] transport, [id number]. Pt, pt's family, and pt's RN notified.
[2019-04-25] MEDS: LISINOPRIL 10 MG TABLET PO SCH (09:16)
[2019-04-25] MEDS: amLODIPine BESYLATE 10 MG TABLET PO SCH (09:16)
[2019-04-25] MEDS: LACTOBACILLUS RHAMNOSUS GG 1 CAPSULE. PO SCH (09:16)
[2019-04-25] MEDS: cefTRIAXone IV Push 2 GM VIAL. IVP SCH (09:16)
[2019-04-25] MEDS: INSULIN LISPRO 300 UNITS/3 ML VIAL. SQ SCH (09:26)
--- NOTE | 2019-04-25 09:40 | PDOC ---
SURGICAL PROGRESS NOTE Subjective Pt without c/o, gustavo diet, denies abd pain Vital Signs Vital Signs Date Time Temp Pulse Resp B/P (MAP) Pulse Ox O2 Delivery O2 Flow Rate FiO2 04/25/19 09:16 73 140/64 04/25/19 07:00 98.1 16 92 Nasal Cannula 2.0 98.1 I&O Intake and Output 04/25/19 07:00 Intake Total 600 ml Output Total 150 ml Balance 450 ml Intake Oral 600 ml Output Urine Total 150 ml # Voids 8 # Bowel Movements 1 General: Alert, Cooperative, No acute distress HEENT: Other (no jaundice) Abdomen: Soft, No tenderness Labs Laboratory Tests Test 04/23/19 11:32 04/23/19 17:12 04/23/19 20:39 04/24/19 07:14 Glucose (Fingerstick) 165 mg/dL (70-99) 167 mg/dL (70-99) 175 mg/dL (70-99) 182 mg/dL (70-99) Test 04/24/19 11:55 04/24/19 17:05 04/24/19 20:47 04/25/19 07:13 Glucose (Fingerstick) 164 mg/dL (70-99) 223 mg/dL (70-99) 191 mg/dL (70-99) 166 mg/dL (70-99) Laboratory Tests Test 04/24/19 11:55 04/24/19 17:05 04/24/19 20:47 04/25/19 07:13 Glucose (Fingerstick) 164 mg/dL (70-99) 223 mg/dL (70-99) 191 mg/dL (70-99) 166 mg/dL (70-99) Problem List Problems Medical Problems: (1) Abnormal CT of the abdomen Status: Acute (2) Atrial fibrillation Status: Acute (3) Elevated liver function tests Status: Acute (4) Hyperglycemia Status: Acute (5) Hypoalbuminemia Status: Acute (6) Jaundice Status: Acute (7) Nausea and vomiting Status: Acute (8) Renal insufficiency Status: Acute (9) Sepsis Status: Acute (10) Uncontrolled diabetes mellitus Status: Acute (11) Urinary tract infection Status: Acute Assessment/Plan Ok to d/c. F/u PRN to consider EUS NIKA KNIGHT MD Apr 25, 2019 09:40
--- NOTE | 2019-04-25 10:29 | SNU/HH DC ---
DISCHARGE ORDERS DISCHARGE INFORMATION: DISCHARGE DATE: Apr 25, 2019 FINAL DIAGNOSIS Problems Medical Problems: (1) Abnormal CT of the abdomen Status: Acute (2) Atrial fibrillation Status: Acute (3) Elevated liver function tests Status: Acute (4) Hyperglycemia Status: Acute (5) Hypoalbuminemia Status: Acute (6) Jaundice Status: Acute (7) Nausea and vomiting Status: Acute (8) Renal insufficiency Status: Acute (9) Sepsis Status: Acute (10) Uncontrolled diabetes mellitus Status: Acute (11) Urinary tract infection Status: Acute CONDITION ON DISCHARGE: Stable CODE STATUS: Code Status: Full ASSISTED: SNF STAY <30 DAYS: Yes HOSPICE: HOSPICE: No HOSPICE EVAL & TREAT: No LTAC: ADMIT TO LTAC: No POST DISCHARGE ORDERS: ACTIVITY ORDERS: No restrictions WEIGHT BEARING STATUS: No restrictions DIET AFTER DISCHARGE: Regular CHECKS AFTER DISCHARGE: CHECKS AFTER DISCHARGE: Check blood press - daily, Check blood sugar, ac/hs TREATMENT/EQUIPMENT ORDERS: Physical Therapy For: Evalulation/Treatment Occupational Therapy For: Evaluation/Treatment DISCHARGE MEDICATIONS: Home Meds Active Scripts Glimepiride (AMARYL) 4 Mg Tablet, 1 TAB PO DAILY for diabetes, #30 TAB 5 Refills Prov:VOLODYMYR HESS MD 04/25/19 Pantoprazole Sodium (PANTOPRAZOLE SODIUM ) 40 Mg Tablet.dr, 40 MG PO DAILYAC for abdominal pain for 30 Days, #30 TAB.SR Prov:VOLODYMYR HESS MD 04/25/19 [cefTRIAXone IV Push] 2 GM VIAL No Conflict Check, 2 GM IVP Q24H for sepsis for 14 Days, #14 EACH Prov:VOLODYMYR HESS MD 04/25/19 Reported Medications Lisinopril (LISINOPRIL) 10 Mg Tablet, 1 TAB PO DAILY for HTN, #30 TAB 5 Refills 04/17/19 Amlodipine Besylate (AMLODIPINE BESYLATE) 10 Mg Tablet, 10 MG PO DAILY, TAB 11/22/13 VOLODYMYR HESS MD Apr 25, 2019 10:29
[2019-04-25 11:00] VITALS: BP 133/66
--- NOTE | 2019-04-25 11:40 | NUR ---
Report called to [facility]igno at [facility], patient discharging at 1100 with 22 IV in Left hand for antibiotic use.
--- NOTE | 2019-04-25 23:53 | DS ---
DATE OF DISCHARGE: 04/25/2019 PPRIMARY DIAGNOSIS: Severe sepsis. ADDITIONAL DIAGNOSES: 1. Hyperglycemia. 2. Diabetes. 3. Severe protein-calorie malnutrition. 4. Leukocytosis. 5. Pyuria with negative urine cultures. 6. Biliary stasis with jaundice. 7. Thrombocytopenia, improved. 8. Acute kidney injury, improved. 9. Hyponatremia, corrected. 10. Lactic acidosis, improved. CHIEF COMPLAINT AND HISTORY OF PRESENT ILLNESS: This 83-year-old white female patient of Dr. Xiong, was admitted through the Emergency Room with several days of nausea, vomiting, progressive weakness. She was felt to be initially septic from urinary tract source, admitted to the hospital through the Emergency Room. She had significant jaundice with elevated liver function tests on admission in addition. SUMMARY OF STAY: The patient was admitted, treated with antibiotics throughout the stay, eventually had positive blood cultures 4 out of 4 for E. coli, which after a negative urine culture was felt to be due to biliary in origin. Imaging of her abdomen included a CT and ultrasound and MRCP and an abdominal MRI. She had enhancing septated cystic hepatic mass superior to the gallbladder fossa. A primary neoplastic process was of concern including cholangiocarcinoma. Encasement of the left central hepatic biliary tree was noted with associated dilation. Small mass is also noted involving the left hepatic lobe, which could represent a site of metastatic involvement. Endoscopic ultrasound was recommended as followup for the same. The patient did improve dramatically though during the stay on multiple parameters. Initial white count was 16,000 to left shift and improved to normal. She had no significant problems with anemia during the stay. Did have a low platelet count, which had resolved by the time of discharge, likely septic related. INR was normal on admission. Blood sugars were in the 500 range on admission and came down nicely with the insulin treatment. Initial lactic acid was 2.9 and improved. Initial bilirubin was 8.1 and it improved down to 2 by the time of discharge. Ammonia level was low during the stay. CA 19-9 antigen was elevated at 114. Initial kidney function showed a BUN of 65 and creatinine of 2, which had come down to 21 and 0.6 by the time of discharge with resolution of her acute renal function. Liver function tests were high and were improving in all regards including AST, ALT and alkaline phosphatase by the time of discharge. She was weak from all of this. There were some questions during the stay of her swallowing ability, but she was eating regular diet by the time of discharge. Infectious Disease recommended ongoing IV Rocephin at [facility] while she was getting rehab to get back with a trip back to [facility] home. The thought on discharge was Rocephin at least through 04/28 to complete 10 days of therapy. DISPOSITION: The patient is discharged to [facility]. Please see orders regarding diet, medication, activity, etc. We will continue to follow her there. VOLODYMYR HESS MD DR: RAF/crystal JOB#: [id number] / [id number] ELIANE Grissom MD
== END 2019-04-25 11:15 | DRG 871 ==
LOC: ER 08:33 → 2 NORTH 10:30 → 2 SOUTH 04-18 19:11
PROVIDERS: ADMIT Family Medicine; ATTEND Family Medicine
DX: A41.50 Gram-negative sepsis, unspecified (principal); N17.0 Acute kidney failure with tubular necrosis; E43 Unspecified severe protein-calorie malnutrition; N39.0 Urinary tract infection, site not specified; C22.1 Intrahepatic bile duct carcinoma; E87.1 Hypo-osmolality and hyponatremia; M48.56XA Collapsed vertebra, not elsewhere classified, lumbar region, initial encounter for fracture; D69.6 Thrombocytopenia, unspecified; E11.65 Type 2 diabetes mellitus with hyperglycemia; F03.90 Unspecified dementia, unspecified severity, without behavioral disturbance, psychotic disturbance, mood disturbance, and anxiety; I10 Essential (primary) hypertension; I48.91 Unspecified atrial fibrillation; K57.30 Diverticulosis of large intestine without perforation or abscess without bleeding; K82.8 Other specified diseases of gallbladder; K83.8 Other specified diseases of biliary tract; K86.9 Disease of pancreas, unspecified; M19.90 Unspecified osteoarthritis, unspecified site; R13.10 Dysphagia, unspecified; Z82.49 Family history of ischemic heart disease and other diseases of the circulatory system; Z87.440 Personal history of urinary (tract) infections; Z88.0 Allergy status to penicillin; Z91.14 Patient's other noncompliance with medication regimen; Z68.29 Body mass index [BMI] 29.0-29.9, adult
CPT/HCPCS: 36415; 36600; 71045; 74176; 74181; 74182; 76705; 80053; 81001; 82010; 82140; 82550; 82805; 82962; 83605; 83690; 83735; 83880; 84100; 84484; 85007; 85025; 85027; 85610; 85730; 86301; 87040; 87077; 87086; 87205; 93005; 96361; 96365; 96375; A9575; C9113; J0692; J0696; J1815; J2185; J3370; J3480; J7030; P9612; 92526; 92610; 97110; 97116; 97530; 97535; 99291-25; G0378

== ENCOUNTER 2019-05-12 22:18 | Inpatient (IN) | payer MEDICARE ==
[~2019-05-12] VITALS: Ht 162.6 cm; Wt 73.9 kg
[~2019-05-12 22:18] MED LIST changes: +CEFTRIAXONE SODIUM IVP; -GLIM1TAB3 PO; +GLIM1TAB7 PO; +GLIM4TAB PO; +LISI10TA2 PO; +PANT40TA77 PO
[2019-05-12 22:46] LABS: BASO # 0.1 x10^3/uL (0.0-0.2); BASO % 1 % (0-3); EOS # 0.1 x10^3/uL (0.0-0.7); EOS % 1 % (0-3); HEMATOCRIT 38.6 % (36.0-47.0); HEMOGLOBIN 13.4 g/dL (12.0-15.5); LYMPH # 1.2 x10^3/uL (1.0-4.8); LYMPH % 15 % (24-48); MEAN CORPUSCULAR HEMOGLOBIN 31 pg (25-35); MEAN CORPUSCULAR HGB CONC 35 g/dL (31-37); MEAN CORPUSCULAR VOLUME 89 fL (79-100); MONO # 0.6 x10^3/uL (0.0-1.1); MONO % 7 % (0-9); NEUT % 76 % (31-73); PLATELET COUNT 285 x10^3/uL (140-400); RED BLOOD COUNT 4.33 x10^6/uL (3.50-5.40); RED CELL DISTRIBUTION WIDTH 15.4 % (11.5-14.5)
[2019-05-12 22:55] LABS: CALCIUM 8.6 mg/dL (8.5-10.1); CREATININE 0.7 mg/dL (0.6-1.0); GFR 79.9
[2019-05-12 22:57] LABS: POTASSIUM 2.7 mmol/L (3.5-5.1)
[2019-05-12] MEDS ORDERED: POTASSIUM CHLORIDE 20 MEQ TABLET.ER. PO ONE (23:00)
[2019-05-12] MEDS ORDERED: POTASSIUM BICARB 20 MEQ EFFERVESCENT TABLET. PO ONE (23:30)
[2019-05-13] VITALS (14 sets, daily range): BP systolic 130–166; BP diastolic 56–87
[2019-05-13] MEDS ORDERED: DEXTROSE 50% 25 GM / 50ML DISP.SYRIN. IV ONE ×2 (01:14→01:30)
[2019-05-13] MEDS ORDERED: C.DIFF MED SCREEN BY RX. MC ONE (04:15)
--- NOTE | 2019-05-13 04:18 | PHYS DOC ---
Past Medical History Past Medical History: Diabetes-Type II, Hypertension, UTI, Other Additional Past Medical Histor: SEPSIS Past Surgical History: No Surgical History Alcohol Use: None Drug Use: None Adult General Chief Complaint Chief Complaint: HYPOGLYCEMIA HPI HPI Patient is a 83 year old female history of diabetes and hypertension who presents with chest pain presents nausea vomiting decreased oral intake and low blood sugar. Patient last took her oral diabetic medications morning is very little to eat today. Patient was evaluated PCP this afternoon have blood sugars in her 50s. Patient was able to eat some crackers in the provider's office and was prescribed some nausea medication which the family felt this afternoon. Patient had very little to eat this evening. Reports feeling fatigued with brief unresponsive episode. Blood sugar low prior to ED arrival she did by EMS. Review of Systems Review of Systems Review of symptoms as per history of present illness. All other review symptoms are negative. All other systems were reviewed and found to be within normal limits, except as documented in this note. Current Medications Current Medications Current Medications Medications (Trade) Dose Ordered Sig/Almaz Start Time Stop Time Status Last Admin Dose Admin Dextrose (Dextrose 50%-Water Syringe) 25 gm 1X ONCE 05/13/19 01:30 05/13/19 01:31 DC 05/13/19 01:20 25 GM Potassium Bicarbonate (Potassium Effervescent Tablet) 40 meq 1X ONCE 05/12/19 23:30 05/12/19 23:45 DC 05/12/19 23:35 40 MEQ Potassium Chloride (Klor-Con) 40 meq 1X ONCE 05/12/19 23:00 05/12/19 23:30 DC Allergies Allergies Allergies Coded Allergies Type Severity Reaction Last Updated Verified Penicillins Adverse Reaction Intermediate N/V 04/21/19 Yes Physical Exam Physical Exam Constitutional: Well developed, well nourished, no acute distress, non-toxic cesar earance. [] HENT: Normocephalic, atraumatic, bilateral external ears normal, oropharynx moist, nose normal. [] Eyes: PERRLA, EOMI, conjunctiva normal. [] Neck: Normal range of motion, no tenderness. [] Cardiovascular:Heart rate regular rhythm, no murmur [] Lungs & Thorax: Bilateral breath sounds clear to auscultation [] Abdomen: Bowel sounds normal, soft, no tenderness. [] Skin: Warm, dry, no erythema, no rash. [] Back: No tenderness. [] Extremities: No tenderness. [] Neurologic: Alert and oriented X 3, normal motor function, normal sensory function, no focal deficits noted. [] Psychologic: Affect normal, judgement normal, mood normal. [] Current Patient Data Vital Signs Vital Signs Date Time Temp Pulse Resp B/P (MAP) Pulse Ox O2 Delivery O2 Flow Rate FiO2 05/13/19 01:23 77 174/67 (102) 96 Room Air 05/12/19 22:18 97.5 20 97.5 Lab Values Laboratory Tests Test 05/12/19 22:26 05/12/19 22:33 05/13/19 01:13 05/13/19 01:43 Glucose (Fingerstick) 80 mg/dL (70-99) 33 mg/dL (70-99) *L 141 mg/dL (70-99) H White Blood Count 8.0 x10^3/uL (4.0-11.0) Red Blood Count 4.33 x10^6/uL (3.50-5.40) Hemoglobin 13.4 g/dL (12.0-15.5) Hematocrit 38.6 % (36.0-47.0) Mean Corpuscular Volume 89 fL (79-100) Mean Corpuscular Hemoglobin 31 pg (25-35) Mean Corpuscular Hemoglobin Concent 35 g/dL (31-37) Red Cell Distribution Width 15.4 % (11.5-14.5) H Platelet Count 285 x10^3/uL (140-400) Neutrophils (%) (Auto) 76 % (31-73) H Lymphocytes (%) (Auto) 15 % (24-48) L Monocytes (%) (Auto) 7 % (0-9) Eosinophils (%) (Auto) 1 % (0-3) Basophils (%) (Auto) 1 % (0-3) Neutrophils # (Auto) 6.0 x10^3/uL (1.8-7.7) Lymphocytes # (Auto) 1.2 x10^3/uL (1.0-4.8) Monocytes # (Auto) 0.6 x10^3/uL (0.0-1.1) Eosinophils # (Auto) 0.1 x10^3/uL (0.0-0.7) Basophils # (Auto) 0.1 x10^3/uL (0.0-0.2) Sodium Level 135 mmol/L (136-145) L Potassium Level 2.7 mmol/L (3.5-5.1) *L Chloride Level 98 mmol/L (98-107) Carbon Dioxide Level 29 mmol/L (21-32) Anion Gap 8 (6-14) Blood Urea Nitrogen 10 mg/dL (7-20) Creatinine 0.7 mg/dL (0.6-1.0) Estimated GFR (Cockcroft-Gault) 79.9 Glucose Level 80 mg/dL (70-99) Calcium Level 8.6 mg/dL (8.5-10.1) Laboratory Tests 05/12/19 22:33 Laboratory Tests 05/12/19 22:33 EKG EKG [] Radiology/Procedures Radiology/Procedures [] Course & Med Decision Making Course & Med Decision Making Pertinent Labs and Imaging studies reviewed. (See chart for details) [Potassium replaced. Patient given nausea medication in the ED tolerates oral intake. Blood sugars monitored closely in drop while sleeping. D50, which she is given. Will admit to the hospitalist service for further evaluation and monitoring.] Dragon Disclaimer Dragon Disclaimer This electronic medical record was generated, in whole or in part, using a voice recognition dictation system. Departure Departure Impression: Primary Impression: Hypoglycemia Additional Impression: Hypokalemia Disposition: ADMITTED INPATIENT Condition: IMPROVED Referrals: VOLODYMYR HESS MD (PCP) Problem Qualifiers SOHEILA VARGAS DO May 13, 2019 04:18
[2019-05-13] MEDS ORDERED: IV DEXTROSE 5% 250 ML BAG. IV PRN (05:15)
[2019-05-13] MEDS: DEXTROSE 50% 25 GM / 50ML DISP.SYRIN. IV PRN ×5 (05:15→19:32)
--- NOTE | 2019-05-13 06:20 | NUR ---
Patient arrived on unit at 0345 accompanied by ED RN. Patient alert and oriented, able to answer admission questions when asked. Around 0450, patient fell asleep and became more somnolent, blood glucose was checked and was critically low. D50 was administered per protocol.
[2019-05-13] MEDS: IV DEXTROSE 10% 1,000 ML IV SCH (09:59)
--- NOTE | 2019-05-13 22:53 | HP ---
ADMIT DATE: 05/13/2019 CHIEF COMPLAINT AND HISTORY OF PRESENT ILLNESS: This 83-year-old white female is known to me from recent hospitalization and one office visit. I saw her a day prior to admission with low blood sugars as well as ongoing nausea and poor appetite. Her glimepiride, which was at 4 mg a day, was told to decrease down to 2 mg a day and she was hypoglycemic in my office with a sugar of 54 and was given some food there with improvement in her symptomatology. We gave her a nausea medicine, checked a bunch of lab, felt like we would make further decisions based on the laboratory. She was recently discharged from the hospital with sepsis. 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 PAST MEDICAL HISTORY: Remarkable for the recent sepsis, diabetes, hypertension, UTIs. MEDICATIONS: Brought with the patient, on the computer and have been addressed. ALLERGIES: SHE IS ALLERGIC TO PENICILLIN. SOCIAL HISTORY: She lives with her daughter, is a nonsmoker, nondrinker, does not use drugs. Has very supportive family. FAMILY HISTORY: Noncontributory. REVIEW OF SYSTEMS: Remarkable for her feeling much better at the time of my examination on the morning of admission. She denies any significant nausea or pain at the time of my examination. She is a little bit forgetful and history, I think, is limited on the basis of that. She states the reason she was in the hospital was because of the fall from which she was too weak to get back up from. Per family, she became somewhat unresponsive on the evening prior to admission. PHYSICAL EXAMINATION: GENERAL: She is a well-developed, well-nourished white female, in no acute distress. VITAL SIGNS: Stable. She is afebrile. HEAD, EYES, EARS, NOSE AND THROAT: Unremarkable. There is no icterus. NECK: Supple, without adenopathy or thyromegaly. CHEST: Clear to auscultation and percussion. HEART: Regular rate and rhythm without S3, S4 or murmur. ABDOMEN: Soft, nontender, without hepatosplenomegaly or masses. EXTREMITIES: Without cyanosis, clubbing, edema. NEUROLOGIC: She is intact. LABORATORY DATA: Initial laboratory is remarkable for unremarkable appearing CBC. Potassium was low at 2.7 on admission, BUN 10, creatinine 0.7. Repeat potassium is 3.6. Sugars have been intermittently low since admission. IMPRESSION: Hypoglycemia in a patient with multiple other problems listed above and poor p.o. intake due to ongoing nausea. PLAN: ICU monitoring at this point in time, detain intermittently for the low blood sugars infusion. Amaryl will be held and will not be a medicine that she is placed further on or again in the future. Interestingly, her presentation last admission was sugars in the 500 when she was septic. VOLODYMYR HESS MD DR: RAF/crystal JOB#: [id number] / [id number]
[2019-05-14] VITALS (23 sets, daily range): BP systolic 114–171; BP diastolic 50–87
[2019-05-14] MEDS: IV DEXTROSE 10% 1,000 ML IV SCH (04:28)
[2019-05-14 05:41] LABS: ALBUMIN 2.2 g/dL (3.4-5.0); ALBUMIN/GLOBULIN RATIO 0.6 (1.0-1.7); CALCIUM 8.2 mg/dL (8.5-10.1); CREATININE 0.9 mg/dL (0.6-1.0); GFR 59.8; POTASSIUM 3.5 mmol/L (3.5-5.1); TOTAL BILIRUBIN 4.8 mg/dL (0.2-1.0); TOTAL PROTEIN 5.9 g/dL (6.4-8.2)
[2019-05-14] MEDS: amLODIPine BESYLATE 10 MG TABLET PO SCH (08:12)
[2019-05-14] MEDS: PANTOPRAZOLE 40 MG TABLET.DR. PO SCH (08:12)
[2019-05-14] MEDS: LISINOPRIL 10 MG TABLET PO SCH (08:13)
--- NOTE | 2019-05-14 09:10 | PDOC ---
GENERAL General: vss and afebrile. awake and alert and feels much better. ready to eat some breakfast. chest clear, heart regular, abdomen benign. lft's have increased again from prior dc and bili up to 4.8. sugars still on low side on D10 fluids and will contnue same till amaryl out of system. otherwise same. VITAL SIGNS/I&O Vital Signs/I&O: Vital Signs Date Time Temp Pulse Resp B/P (MAP) Pulse Ox O2 Delivery O2 Flow Rate FiO2 05/14/19 08:13 66 166/66 05/14/19 08:06 Room Air 05/14/19 08:06 20 92 05/14/19 07:03 98.2 98.2 I & O 05/13/19 05/13/19 05/14/19 15:00 23:00 07:00 Intake Total 660 ml 240 ml 1220 ml Output Total 350 ml 550 ml Balance 310 ml 240 ml 670 ml ALLERGIES Allergies: Allergies Coded Allergies Type Severity Reaction Last Updated Verified Penicillins Adverse Reaction Intermediate N/V 04/21/19 Yes MEDS Medications: Current Medications Medications (Trade) Dose Ordered Sig/Almaz Route PRN Reason Start Time Stop Time Status Last Admin Dose Admin Amlodipine Besylate (Norvasc) 10 mg DAILY PO 05/14/19 09:00 05/14/19 08:12 Lisinopril (Prinivil) 10 mg DAILY PO 05/14/19 09:00 05/14/19 08:13 Pantoprazole Sodium (Protonix) 40 mg DAILYAC PO 05/14/19 07:30 05/14/19 08:12 LAB Lab: Laboratory Tests Test 05/13/19 12:10 05/13/19 13:25 05/13/19 17:11 05/13/19 19:28 Glucose (Fingerstick) 52 mg/dL (70-99) L 115 mg/dL (70-99) H 48 mg/dL (70-99) *L 62 mg/dL (70-99) L Test 05/13/19 20:00 05/13/19 22:40 05/14/19 00:54 05/14/19 05:00 Glucose (Fingerstick) 121 mg/dL (70-99) H 76 mg/dL (70-99) 140 mg/dL (70-99) H Sodium Level 134 mmol/L (136-145) L Potassium Level 3.5 mmol/L (3.5-5.1) Chloride Level 98 mmol/L (98-107) Carbon Dioxide Level 29 mmol/L (21-32) Anion Gap 7 (6-14) Blood Urea Nitrogen 9 mg/dL (7-20) Creatinine 0.9 mg/dL (0.6-1.0) Estimated GFR (Cockcroft-Gault) 59.8 BUN/Creatinine Ratio 10 (6-20) Glucose Level 113 mg/dL (70-99) H Calcium Level 8.2 mg/dL (8.5-10.1) L Total Bilirubin 4.8 mg/dL (0.2-1.0) H Aspartate Amino Transferase (AST) 165 U/L (15-37) H Alanine Aminotransferase (ALT) 135 U/L (14-59) H Alkaline Phosphatase 586 U/L (46-116) H Total Protein 5.9 g/dL (6.4-8.2) L Albumin 2.2 g/dL (3.4-5.0) L Albumin/Globulin Ratio 0.6 (1.0-1.7) L Test 05/14/19 07:00 Glucose (Fingerstick) 113 mg/dL (70-99) H Laboratory Tests 05/14/19 05:00 VOLODYMYR HESS MD May 14, 2019 09:10
[2019-05-15] VITALS (17 sets, daily range): BP systolic 114–156; BP diastolic 46–76
[2019-05-15] MEDS: PANTOPRAZOLE 40 MG TABLET.DR. PO SCH (08:28)
[2019-05-15] MEDS: LISINOPRIL 10 MG TABLET PO SCH (08:29)
[2019-05-15] MEDS: amLODIPine BESYLATE 10 MG TABLET PO SCH (08:29)
--- NOTE | 2019-05-15 14:20 | NUR ---
SS following for discharge planning. SS reviewed pt chart. Pt is from home with daughter and is currently on room air. PT/OT recommended [facility]p unit. SS spoke with pt's daughter via phone. Pt's daughter reported that pt was previously at [facility] for rehab but discharged 05/06/2019. Pt's daughter agreeable to usp unit and requested referral be phoned and faxed to [facility], ; fax [phone]. SS phoned and faxed referral. SS will await acceptance decision and will continue to follow for discharge planning.
--- NOTE | 2019-05-15 15:41 | NUR ---
Patient arrived on unit via wheelchair by [facility] BARRI[facility]. Patient oriented to unit VS taken and entered in computer. Will continue to monitor.
--- NOTE | 2019-05-15 16:09 | PDOC ---
GENERAL General: vss and afebrile. no further nausea. eating fair. chest clear, heart regular, a bdomen benign. sugars have stayed up overnight so will transfer to medical floor with possible dc soon if continues to take po well. VITAL SIGNS/I&O Vital Signs/I&O: Vital Signs Date Time Temp Pulse Resp B/P (MAP) Pulse Ox O2 Delivery O2 Flow Rate FiO2 05/15/19 15:14 98.8 109 24 137/76 (96) 97 Room Air 98.8 I & O0 05/14/19 05/14/19 05/15/19 15:00 23:00 07:00 Intake Total 607 ml 960 ml 360 ml Output Total 675 ml 450 ml 375 ml Balance -68 ml 510 ml -15 ml ALLERGIES Allergies: Allergies Coded Allergies Type Severity Reaction Last Updated Verified Penicillins Adverse Reaction Intermediate N/V 04/21/19 Yes LAB Lab: Laboratory Tests Test 05/14/19 17:10 05/14/19 21:49 05/15/19 03:07 05/15/19 08:32 Glucose (Fingerstick) 206 mg/dL (70-99) H 199 mg/dL (70-99) H 139 mg/dL (70-99) H 168 mg/dL (70-99) H Test 05/15/19 13:09 05/15/19 13:11 Glucose (Fingerstick) 314 mg/dL (70-99) H 324 mg/dL (70-99) H VOLODYMYR HESS MD May 15, 2019 16:09
[2019-05-15] MEDS: LINAGLIPTIN 5 MG TABLET PO SCH (16:56)
[2019-05-16 03:00] VITALS: BP 154/47
[2019-05-16 07:00] VITALS: BP 154/61
[2019-05-16] MEDS: LINAGLIPTIN 5 MG TABLET PO SCH (08:37)
[2019-05-16] MEDS: amLODIPine BESYLATE 10 MG TABLET PO SCH (08:37)
[2019-05-16] MEDS: PANTOPRAZOLE 40 MG TABLET.DR. PO SCH (08:37)
[2019-05-16] MEDS: LISINOPRIL 10 MG TABLET PO SCH (08:38)
[2019-05-16 09:50] LABS: BASO # 0.1 x10^3/uL (0.0-0.2); BASO % 1 % (0-3); EOS # 0.1 x10^3/uL (0.0-0.7); EOS % 1 % (0-3); HEMATOCRIT 35.6 % (36.0-47.0); HEMOGLOBIN 12.1 g/dL (12.0-15.5); LYMPH # 1.5 x10^3/uL (1.0-4.8); LYMPH % 18 % (24-48); MEAN CORPUSCULAR HEMOGLOBIN 31 pg (25-35); MEAN CORPUSCULAR HGB CONC 34 g/dL (31-37); MEAN CORPUSCULAR VOLUME 90 fL (79-100); MONO # 0.6 x10^3/uL (0.0-1.1); MONO % 7 % (0-9); NEUT # 6.3 x10^3/uL (1.8-7.7); NEUT % 74 % (31-73); PLATELET COUNT 286 x10^3/uL (140-400); RED BLOOD COUNT 3.96 x10^6/uL (3.50-5.40); RED CELL DISTRIBUTION WIDTH 15.7 % (11.5-14.5); WHITE BLOOD COUNT 8.6 x10^3/uL (4.0-11.0)
--- NOTE | 2019-05-16 09:57 | PDOC ---
GENERAL General: vss and afebrile. awake and alert and denies complaints. snu eval underway. chest clear, heart regular, abdomen benign. with low grade temp this am will recheck labs. sugar decent this am. VITAL SIGNS/I&O Vital Signs/I&O: Vital Signs Date Time Temp Pulse Resp B/P (MAP) Pulse Ox O2 Delivery O2 Flow Rate FiO2 05/16/19 08:38 89 154/47 05/16/19 07:00 98.5 18 93 Room Air 98.5 05/15/19 23:00 92.0 I & O 05/15/19 05/15/19 05/16/19 15:00 23:00 07:00 Intake Total 480 ml 120 ml 380 ml Output Total 400 ml Balance 80 ml 120 ml 380 ml ALLERGIES Allergies: Allergies Coded Allergies Type Severity Reaction Last Updated Verified Penicillins Adverse Reaction Intermediate N/V 04/21/19 Yes MEDS Medications: Current Medications Medications (Trade) Dose Ordered Sig/Almaz Route PRN Reason Start Time Stop Time Status Last Admin Dose Admin Linagliptin (Tradjenta) 5 mg DAILY PO 05/15/19 17:00 05/16/19 08:37 LAB Lab: Laboratory Tests Test 05/15/19 13:09 05/15/19 13:11 05/15/19 16:53 05/15/19 20:01 Glucose (Fingerstick) 314 mg/dL (70-99) H 324 mg/dL (70-99) H 308 mg/dL (70-99) H 295 mg/dL (70-99) H Test 05/16/19 07:46 05/16/19 09:00 Glucose (Fingerstick) 156 mg/dL (70-99) H White Blood Count 8.6 x10^3/uL (4.0-11.0) Red Blood Count 3.96 x10^6/uL (3.50-5.40) Hemoglobin 12.1 g/dL (12.0-15.5) Hematocrit 35.6 % (36.0-47.0) L Mean Corpuscular Volume 90 fL (79-100) Mean Corpuscular Hemoglobin 31 pg (25-35) Mean Corpuscular Hemoglobin Concent 34 g/dL (31-37) Red Cell Distribution Width 15.7 % (11.5-14.5) H Platelet Count 286 x10^3/uL (140-400) Neutrophils (%) (Auto) 74 % (31-73) H Lymphocytes (%) (Auto) 18 % (24-48) L Monocytes (%) (Auto) 7 % (0-9) Eosinophils (%) (Auto) 1 % (0-3) Basophils (%) (Auto) 1 % (0-3) Neutrophils # (Auto) 6.3 x10^3/uL (1.8-7.7) Lymphocytes # (Auto) 1.5 x10^3/uL (1.0-4.8) Monocytes # (Auto) 0.6 x10^3/uL (0.0-1.1) Eosinophils # (Auto) 0.1 x10^3/uL (0.0-0.7) Basophils # (Auto) 0.1 x10^3/uL (0.0-0.2) Laboratory Tests 05/16/19 09:00 VOLODYMYR HESS MD May 16, 2019 09:56
[2019-05-16 10:11] LABS: ALBUMIN 2.2 g/dL (3.4-5.0); ALBUMIN/GLOBULIN RATIO 0.6 (1.0-1.7); CALCIUM 8.1 mg/dL (8.5-10.1); CREATININE 0.8 mg/dL (0.6-1.0); GFR 68.5; POTASSIUM 3.8 mmol/L (3.5-5.1); TOTAL BILIRUBIN 3.8 mg/dL (0.2-1.0); TOTAL PROTEIN 6.1 g/dL (6.4-8.2)
--- NOTE | 2019-05-16 10:27 | NUR ---
ROSALINDA following. Discussed with RN, pt accepted at [facility] for SNU. Per Rn, Dr. Po elise with discharge. SW awaiting finalized meds and discharge paperwork. RN notifying Dr. Fontenot. Addendum: 05/16/19 at 1355 by SOFIA TELLEZ Pt discharging to [facility] today at 1430. RN and family notified.
[2019-05-16 11:00] VITALS: BP 152/50
[2019-05-16] MEDS ORDERED: LINA5TAB PO (12:24)
--- NOTE | 2019-05-16 12:25 | SNU/HH DC ---
DISCHARGE ORDERS DISCHARGE INFORMATION: DISCHARGE DATE: May 16, 2019 FINAL DIAGNOSIS Problems Medical Problems: (1) Hypokalemia Status: Acute CONDITION ON DISCHARGE: Stable CODE STATUS: Code Status: Full INTERMEDIATE: SNF STAY <30 DAYS: Yes HOSPICE: HOSPICE: No HOSPICE EVAL & TREAT: No LTAC: ADMIT TO LTAC: No POST DISCHARGE ORDERS: ACTIVITY ORDERS: Activity as tolerated WEIGHT BEARING STATUS: No restrictions DIET AFTER DISCHARGE: Regular CHECKS AFTER DISCHARGE: CHECKS AFTER DISCHARGE: Check blood press - daily, Check blood sugar, ac/hs TREATMENT/EQUIPMENT ORDERS: Physical Therapy For: Evalulation/Treatment Occupational Therapy For: Evaluation/Treatment DISCHARGE MEDICATIONS: Home Meds Active Scripts Linagliptin (TRADJENTA) 5 Mg Tablet, 5 MG PO DAILY for diabetes for 30 Days, #30 TAB Prov:VOLODYMYR HESS MD 05/16/19 Pantoprazole Sodium (PANTOPRAZOLE SODIUM ) 40 Mg Tablet.dr, 40 MG PO DAILYAC for abdominal pain for 30 Days, #30 TAB.SR Prov:VOLODYMYR HESS MD 04/25/19 Reported Medications Lisinopril (LISINOPRIL) 10 Mg Tablet, 1 TAB PO DAILY for HTN, #30 TAB 5 Refills 04/17/19 Amlodipine Besylate (AMLODIPINE BESYLATE) 10 Mg Tablet, 10 MG PO DAILY, TAB 11/22/13 Discontinued Scripts Glimepiride (AMARYL) 4 Mg Tablet, 1 TAB PO DAILY for diabetes, #30 TAB 5 Refills Prov:VOLODYMYR HESS MD 04/25/19 [cefTRIAXone IV Push] 2 GM VIAL No Conflict Check, 2 GM IVP Q24H for sepsis for 14 Days, #14 EACH Prov:VOLODYMYR HESS MD 04/25/19 VOLODYMYR HESS MD May 16, 2019 12:25
--- NOTE | 2019-05-16 15:18 | NUR ---
Discharge Note: MICHEAL MCCRARY Discharge instructions and discharge home medications reviewed with Other facility and a copy given. All questions have been answered and understanding verbalized. The following instructions and handouts were given: patient visit report, medication information, education. Discontinued lines and drains: peripheral IV, tip intact. [facility] facility [facility] via [facility] service. Patient left unit awake, in stable condition with all personal belongings. Report called to SOPHIE Walker at [facility].
--- NOTE | 2019-05-16 21:05 | DS ---
DATE OF DISCHARGE: 05/16/2019 PRIMARY DIAGNOSIS: Hypoglycemia. ADDITIONAL DIAGNOSES: Recent sepsis, diabetes, hypertension, urinary tract infections, biliary obstruction with possible pancreatobiliary mass. CHIEF COMPLAINT AND HISTORY OF PRESENT ILLNESS: This is an 83-year-old white female admitted through the Emergency Room with hypoglycemia. She was seen earlier today in the office and her Amaryl which was 4 mg was told to decrease down to 2 mg and she was given some fluid in my office with sugar of 54 there. She became less responsive as the day went on and later in the day was brought to the Emergency Room. Her sugars were quite low and she was admitted for the same. SUMMARY OF STAY: The patient was admitted initially supported with TPN containing fluids, was monitored in the ICU for a couple of days; however, her sugars came up, Tradjenta was started in place of this with a sugar of 183 at the time of discharge. Liver function tests were still elevated during the stay and actually had increased somewhat since prior to discharge, which is concerning and she was feeling well and the family as well as surgical decision at last discharge was not to pursue this further due to her age, etc. She was felt ready for skilled and this was accomplished on the day of dismissal. DISPOSITION: The patient is discharged to SNU, please see orders regarding diet, medication, activity, etc. We will continue to follow her there. VOLODYMYR HESS MD DR: RAF/crystal JOB#: [id number] / [id number]
== END 2019-05-16 14:40 | DRG 639 ==
LOC: ER 22:18 → 1 WEST ICU 05-13 01:48 → OBSVTOIN 05-13 01:48 → 1 WEST ICU 05-13 03:32 → 4 NORTH 05-15 15:32
PROVIDERS: ADMIT Family Medicine; ATTEND Family Medicine
DX: E11.649 Type 2 diabetes mellitus with hypoglycemia without coma (principal); E87.6 Hypokalemia; I10 Essential (primary) hypertension; Z88.0 Allergy status to penicillin
CPT/HCPCS: 36415; 80048; 80053; 82962; 84132; 85025; 96374; J7042; 97110; 97116; 99285-25; G0378

== ENCOUNTER → 2019-06-12 | Outpatient (CLI) | payer MEDICARE ==
[2019-05-16 11:00] VITALS: BP 152/50
[~2019-06-12] MED LIST changes: +CONTRAST GIVEN. MC PRN; +IOHEXOL 240 MG/ML 50ML VIAL. PO ONE; +IOHEXOL 300 MG/ML 100ML VIAL. IV ONE; +LINA5TAB PO; +PIOG30TA41 PO
--- NOTE | 2019-06-12 15:21 | RAD ---
EXAM: CT ABDOMEN/PELVIS WITH CONTRAST. HISTORY: Jaundice. TECHNIQUE: Computed tomography of the abdomen and pelvis was performed after the intravenous administration of iodinated contrast. One or more of the following individualized dose reduction techniques were utilized for this examination: 1. Automated exposure control. 2. Adjustment of the mA and/or kV according to patient size. 3. Use of iterative reconstruction technique. COMPARISON: 04/17/2019. FINDINGS: Lung windows through the visualized portions of the bases reveal an uncalcified nodule in the right middle lobe on image 3 measuring 5 mm. There is mild atelectasis elsewhere. Bone windows reveal a mild superior plate compression fracture at L5 is unchanged. The gallbladder is dilated and its borders are somewhat irregular. There is now soft tissue thickening along its medial and inferior border. These result in a stricture at the junction of the hepatic ducts with moderate intrahepatic biliary dilatation. This has progressed since the prior examination. There is a thin fluid collection along the anterior wall of the gallbladder with an enhancing wall measuring approximately 4.0 x 1.6 cm. A fluid density mass within the pancreatic head measures 2.6 x 1.6 cm. It contains a thin septation. No solid pancreatic parenchymal lesion is seen. The pancreatic duct is not dilated. A fluid density lesion in hepatic segment 7 measures 9 mm and is likely a benign cyst. There are no clearly suspicious hepatic lesions. Bilateral renal cysts measure up to 2.2 cm at the left upper pole. The spleen and adrenal glands are unremarkable. There are no pathologically enlarged lymph nodes. There are changes of pelvic floor relaxation. There is no ascites. No clear peritoneal lesions are seen. There is no small bowel obstruction. IMPRESSION: 1. Interval development of soft tissue thickening and a small amount of fluid along the periphery of the gallbladder result in a stricture at the junction of intrahepatic ducts and moderate intrahepatic biliary dilatation. These changes may reflect an underlying obstructing mass such as cholangiocarcinoma or gallbladder carcinoma. Alternatively, this may reflect inflammatory change in the setting of cholecystitis. Correlation with tumor markers and ERCP are recommended. 2. A 2.6 cm cystic mass in the pancreatic head is consistent with an intraductal papillary mucinous neoplasm as better seen on MRCP. This is not the cause of obstruction. Electronically signed by: Violet Malloy MD (06/12/2019 3:18 PM) [facility]
== END | disposition home or self-care (01) ==
LOC: CT 11:29
PROVIDERS: ATTEND Family Medicine
DX: N28.1 Cyst of kidney, acquired (principal); R91.8 Other nonspecific abnormal finding of lung field; M48.56XA Collapsed vertebra, not elsewhere classified, lumbar region, initial encounter for fracture; J98.11 Atelectasis; R17 Unspecified jaundice
CPT/HCPCS: 74177; Q9966; Q9967

== ENCOUNTER → 2019-09-29 | Outpatient (CLI) | payer MEDICARE ==
[2019-06-24 11:00] VITALS: BP 144/53
[~2019-09-29] MED LIST changes: +CEPH250C PO; -CONTRAST GIVEN. MC PRN
[2019-09-29 14:14] LABS: CREATININE 0.9 mg/dL (0.6-1.0); GFR 59.8
--- NOTE | 2019-09-29 16:40 | RAD ---
Exam: CT abdomen/pelvis with intravenous contrast Indication: Jaundice Comparison: CT abdomen and pelvis 06/12/2019 Technique: Helical CT imaging performed of the abdomen and pelvis after the intravenous administration of 75 mm Omnipaque 300 intravenous contrast. Sagittal and coronal reformats were obtained. One or more of the following individualized dose reduction techniques were utilized for this examination: 1. Automated exposure control 2. Adjustment of the mA and/or kV according to patient size 3. Use of iterative reconstruction technique. Findings: Lower chest: A 6 mm nodular opacity in the right middle lobe has increased in size, previously 4 mm (image 2, series 2. Heart size is normal. Liver: The liver is normal in size with associated contour. A 9 mm simple cyst in the posterior right hepatic lobe is unchanged. No new liver lesion. Gallbladder/Biliary Tree: A new cholecystostomy drain decompresses the gallbladder. Intrahepatic biliary duct dilatation has significantly decreased, now mild. The common bile duct is dilated measuring 1.3 cm but tapers distally, new from prior exam. Pancreas: Unchanged 2.2 cm multilobulated cystic mass in the pancreatic head. No new pancreatic mass. Spleen: Normal. Adrenal Glands: Normal. Kidneys/Ureters/Bladder: Unchanged renal cysts, largest on the right measuring 1.8 cm and on the left measuring 2.2 cm. There is mild fullness of the renal collecting systems, greater on the left, and of the proximal left ureter. No urolithiasis visualized. The bladder is mildly distended. A tiny focus of nondependent gas in the bladder, may be due to recent instrumentation. Reproductive Organs: Uterus is unremarkable. No adnexal mass. Stomach, small bowel, and colon: Stomach, small bowel, and colon are normal. No small bowel obstruction. Vasculature: No abdominal aortic aneurysm. Mild calcified aortic atherosclerosis. Lymph Nodes: No lymphadenopathy. Peritoneum and retroperitoneum: No free fluid or free air. Bones: Partial lumbarization of S1. There is unchanged compression fracture of L5 with approximately 50 percent vertebral body height loss. There is advanced lower lumbar facet arthrosis.. Impression: 1. New cholecystostomy tube with decompression of the gallbladder and decreased, now mild intrahepatic biliary duct dilatation. 2. Unchanged multilobulated cystic mass in the pancreatic head. 3. 6 mm nodular opacity in the right middle lobe, slightly increased in size. Consider dedicated CT of the chest to fully evaluate as indicated. 4. Unchanged L5 compression fracture. Electronically signed by: Rosmery Powell MD (09/29/2019 4:37 PM) [id number]
== END | disposition home or self-care (01) ==
LOC: CT 13:44
PROVIDERS: ATTEND Surgery
DX: N28.1 Cyst of kidney, acquired (principal); K86.2 Cyst of pancreas; N32.89 Other specified disorders of bladder; I70.0 Atherosclerosis of aorta; M48.56XA Collapsed vertebra, not elsewhere classified, lumbar region, initial encounter for fracture; M47.816 Spondylosis without myelopathy or radiculopathy, lumbar region
CPT/HCPCS: 36415; 74177; 82565; 84520; Q9966; Q9967

== ENCOUNTER 2019-10-16 08:28 | Outpatient (CLI) | payer MEDICARE ==
[~2019-10-16] VITALS: Ht 160 cm; Wt 68.0 kg
[2019-10-16] VITALS (10 sets, daily range): BP systolic 123–187; BP diastolic 56–82
[~2019-10-16 08:28] MED LIST changes: -IOHEXOL 240 MG/ML 50ML VIAL. PO ONE; -IOHEXOL 300 MG/ML 100ML VIAL. IV ONE
[2019-10-16] MEDS ORDERED: ASPI-630 PO (08:46)
[2019-10-16] MEDS ORDERED: LIDOCAINE WITH 8.4% SOD BICARB 3 ML DISP.SYRIN. ONE (09:18)
[2019-10-16] MEDS ORDERED: IOHEXOL 240 MG/ML 50ML VIAL. ONE (09:18)
[2019-10-16] MEDS ORDERED: fentaNYL PF VIAL 100 MCG/2 ML VIAL ONE (09:49)
[2019-10-16] MEDS ORDERED: ceFAZolin SODIUM IV Push 1 GM VIAL. IVP ONE ×2 (09:54→10:15)
--- NOTE | 2019-10-16 10:13 | NUR ---
removed old 8fr pig tail drain in gallbladder over the wire and inserted new 8fr pig tail drain. drainage at first open new placement of new tube was reddish but is now the dark yellow bile color. pt became nauseated and vomited a small amount of bile colored emesis. zofran 4mg given ivp. pt returned to cvobs post procedure Addendum: 10/16/19 at 1020 by DAVE ALFARO RN Amended: Links added.
[2019-10-16] MEDS ORDERED: fentaNYL PF VIAL 100 MCG/2 ML VIAL IV ONE (10:15)
[2019-10-16] MEDS ORDERED: LIDOCAINE WITH 8.4% SOD BICARB 3 ML DISP.SYRIN. IJ ONE (10:15)
[2019-10-16] MEDS ORDERED: IOHEXOL 240 MG/ML 50ML VIAL. IJ ONE (10:15)
[2019-10-16] MEDS ORDERED: ONDANSETRON PF 4 MG/2 ML VIAL. ONE (10:17)
[2019-10-16] MEDS ORDERED: ONDANSETRON PF 4 MG/2 ML VIAL. IVP ONE (10:30)
--- NOTE | 2019-10-16 12:05 | NUR ---
Discharge Note: MICHEAL MCCRARY Discharge instructions and discharge home medications reviewed with Patient and Son-Naif, and a copy given. All questions have been answered and understanding verbalized. The following instructions and handouts were given: Biliary drain change. Discontinued lines and drains: Left FA IV dc'd and tip intact. Patient discharged to home with son via personal vehiclel.
--- NOTE | 2019-10-17 09:12 | RAD ---
10/17/2019 6:58 AM Procedure: 1. Cholangiogram through pre-existing cholecystostomy tube 2. Replacement of percutaneous cholecystostomy tube Clinical Indication: Not draining well Discussion: The procedure was explained in its entirety to the patient or the patients designated call center representative by a member of the treatment team, including a discussion of the risks, benefits and commonly accepted alternatives to the procedure, as well as the expected consequences of no therapy whatsoever. Discussion of the risks included, but was not limited to, those that are most frequent and those that are rare but possibly severe or life-threatening, as well as the possibility of unforeseen complications. All elements of maximal sterile barrier technique including the use of a cap, mask, sterile gown, sterile gloves, large sterile sheet, appropriate hand hygiene, and 2% chlorhexidine for cutaneous antisepsis (or acceptable alternative antiseptic per current guidelines) were followed for this procedure. Fluoroscopic evaluation demonstrates the percutaneous cholecystostomy tube to be in similar position. Bile was freely aspirated. Dilute contrast was administered and a cholangiogram was obtained. There is irregularity of the bile duct with what appears to be a central stricture. This is of uncertain etiology. The cystic duct however is patent. Visualized intrahepatic biliary tree is unremarkable. The hepatic duct and proximal common bile duct are patent. There is narrowing of the distalmost CBD without significant free spillage of contrast into the duodenum. Miniscule amount of contrast was seen to flow into the duodenum. Contrast did flow retrograde into the pancreatic duct. The appearance suggests a distal CBD high-grade narrowing. A guidewire was advanced into the gallbladder, and the percutaneous cholecystostomy tube exchanged over the wire without issue. Total fluoroscopy time: 3 min Dose area product: 7 Gycm2 Impression: 1. Abnormal appearance of the gallbladder suggesting gallbladder stricture 2. High-grade narrowing of the distal common bile duct which could be malignant or benign based on these findings. 3. Consider gastroenterology consultation ERCP. Should a biliary stent be placed endoscopically, a trial of capping of the cholecystostomy tube is recommended, if that goes well, removal the tube should be possible.
== END 2019-10-16 11:45 | disposition home or self-care (01) ==
LOC: INTRAD 08:28
PROVIDERS: ATTEND Surgery
DX: T85.590A Other mechanical complication of bile duct prosthesis, initial encounter (principal); Y83.8 Other surgical procedures as the cause of abnormal reaction of the patient, or of later complication, without mention of misadventure at the time of the procedure; Y92.89 Other specified places as the place of occurrence of the external cause
CPT/HCPCS: 47536; A4215; C1729; C1769; J0690; J2405; J3010; J3490; Q9966

== ENCOUNTER 2020-01-14 08:32 | Outpatient (CLI) | payer MEDICARE ==
[~2020-01-14] VITALS: Ht 162.6 cm; Wt 68.0 kg
[~2020-01-14 08:32] MED LIST changes: +ASPI-630 PO
[2020-01-14] MEDS ORDERED: LOSA-73 PO (08:48)
[2020-01-14 09:17] VITALS: BP 187/77
[2020-01-14] MEDS ORDERED: IODIXANOL 320 MG/ML 50ML VIAL. ONE (09:53)
[2020-01-14] MEDS ORDERED: LIDOCAINE WITH 8.4% SOD BICARB 3 ML DISP.SYRIN. ONE (09:58)
[2020-01-14] MEDS ORDERED: IODIXANOL 320 MG/ML 50ML VIAL. IV ONE (10:15)
[2020-01-14] MEDS ORDERED: LIDOCAINE WITH 8.4% SOD BICARB 3 ML DISP.SYRIN. IJ ONE (10:15)
[2020-01-14 10:42] VITALS: BP 200/81
[2020-01-14 11:00] VITALS: BP 200/107
[2020-01-14] MEDS ORDERED: hydrALAZINE 20 MG/ML VIAL. IVP ONE (11:15)
--- NOTE | 2020-01-14 11:24 | NUR ---
spoke with Dr. Le regarding patients elevated blood pressure. Hydralazine 10mg IV given. Will continue to monitor
[2020-01-14 11:25] VITALS: BP 177/53
[2020-01-14 11:41] VITALS: BP 154/57
--- NOTE | 2020-01-14 12:40 | NUR ---
Pt discharged to home with family. Discharge instructions reveiwed with pt and family. Pt Blood pressure trending down from SBP 200 to SBP 157. Pt denied headache after eating lunch.
--- NOTE | 2020-01-14 16:36 | RAD ---
01/14/2020 Procedure: 1. Cholangiogram through pre-existing cholecystostomy tube 2. Replacement of percutaneous cholecystostomy tube Clinical Indication: CHOLECYSTOSTOMY TUBE CHANGE JAUNDICE Discussion: The procedure was explained in its entirety to the patient or the patients designated livestock sales representative by a member of the treatment team, including a discussion of the risks, benefits and commonly accepted alternatives to the procedure, as well as the expected consequences of no therapy whatsoever. Discussion of the risks included, but was not limited to, those that are most frequent and those that are rare but possibly severe or life-threatening, as well as the possibility of unforeseen complications. All elements of maximal sterile barrier technique including the use of a cap, mask, sterile gown, sterile gloves, large sterile sheet, appropriate hand hygiene, and 2% chlorhexidine for cutaneous antisepsis (or acceptable alternative antiseptic per current guidelines) were followed for this procedure. Fluoroscopic evaluation demonstrates the percutaneous cholecystostomy tube to be in similar position. Bile was freely aspirated. Dilute contrast was administered and a cholangiogram was obtained. Narrowing of the mid gallbladder is again noted possibly related to stricture. Narrowing of the distal common bile duct appears be present, though on today's study contrast flows into the duodenum. The cystic duct is patent. Visualized intrahepatic biliary tree is unremarkable. The hepatic duct and proximal common bile duct are paten A guidewire was advanced into the gallbladder, and the percutaneous cholecystostomy tube exchanged over the wire without issue. Total fluoroscopy time 1.4 MIN Dose area product:: 5 GYCM2 Impression: 1. Abnormal appearance of the gallbladder suggesting gallbladder stricture 2. Narrowing of the distal common bile duct. Contrast did flow into the duodenum on today's exam. 3. Patient was referred to gastroenterology for possible ERCP.
== END 2020-01-14 12:00 | disposition home or self-care (01) ==
LOC: INTRAD 08:32
PROVIDERS: ATTEND Surgery
DX: T85.590A Other mechanical complication of bile duct prosthesis, initial encounter (principal); K83.1 Obstruction of bile duct; R17 Unspecified jaundice; R93.2 Abnormal findings on diagnostic imaging of liver and biliary tract; I10 Essential (primary) hypertension; E11.9 Type 2 diabetes mellitus without complications; K21.9 Gastro-esophageal reflux disease without esophagitis; Z79.899 Other long term (current) drug therapy; Z98.890 Other specified postprocedural states; Z88.0 Allergy status to penicillin; Y83.8 Other surgical procedures as the cause of abnormal reaction of the patient, or of later complication, without mention of misadventure at the time of the procedure; Y92.89 Other specified places as the place of occurrence of the external cause
CPT/HCPCS: 47536; A4215; C1729; J0360; J3490; Q9967

== ENCOUNTER 2020-04-29 09:59 | Outpatient (CLI) | payer MEDICARE ==
[~2020-04-29] VITALS: Ht 160 cm; Wt 68.0 kg
[~2020-04-29 09:59] MED LIST changes: +AMLO-187 PO; -AMLO10TA8 PO; +LOSA-73 PO
[2020-04-29] MEDS ORDERED: IOHEXOL 240 MG/ML 50ML VIAL. ONE (10:30)
[2020-04-29] MEDS ORDERED: IOHEXOL 240 MG/ML 50ML VIAL. IJ ONE (11:00)
[2020-04-29] MEDS ORDERED: LIDOCAINE WITH 8.4% SOD BICARB 3 ML DISP.SYRIN. ONE (11:15)
[2020-04-29] MEDS ORDERED: LIDOCAINE WITH 8.4% SOD BICARB 3 ML DISP.SYRIN. IJ ONE (11:15)
[2020-04-29 11:30] VITALS: BP 175/64
[2020-04-29 11:45] VITALS: BP 171/76
[2020-04-29 12:00] VITALS: BP 183/66
--- NOTE | 2020-04-29 12:45 | NUR ---
pt discharged to home with family
--- NOTE | 2020-04-29 16:19 | RAD ---
Procedure: Cholangiogram and per case cholecystostomy tube exchange Clinical Indication: Adult female with acute cholecystitis an indwelling close ostomy tube, requiring routine exchange for continued deferral of definitive percutaneous cholecystectomy. Sedation: Local anesthesia only. Antibiotics: None. Exposure: Fluoro Time: 0.5 minutes Images: 6 Sterility: All elements of maximal sterile barrier technique including the use of a cap, mask, sterile gown, sterile gloves, large sterile sheet, appropriate hand hygiene, and 2% chlorhexidine for cutaneous antisepsis (or acceptable alternative antiseptic per current guidelines) were followed for this procedure. Consent: The procedure was explained in its entirety to the patient or the patients designated commercial pest control representative by a member of the treatment team, including a discussion of the risks, benefits and commonly accepted alternatives to the procedure, as well as the expected consequences of no therapy whatsoever. Discussion of the risks included, but was not limited to, those that are most frequent and those that are rare but possibly severe or life-threatening, as well as the possibility of unforeseen complications. Technique and Findings: Following informed consent, the patient was prepped and draped in usual sterile fashion. Preliminary fluoroscopic spot view revealed an intact cholecystostomy tube. The tube was cut and removed over a wire, and a new tube was advanced over the wire and positioned within the expected location of the gallbladder. This did result in significant pain for the patient, out of proportion for what is to be expected for a well-established drain. Contrast cholangiogram was then performed demonstrating occlusion of the gallbladder, with an appropriate position of the catheter. There is egress of contrast through the cystic duct into the bile ducts, with nonobstructing debris within the distal common bile duct. The drain was then sutured to the skin and placed to bag drainage. Complications: No immediate Impression: 1. Cholangiogram and cholecystostomy tube exchange as described. There is persistent debris within the common bile duct which is nonobstructing. Recommend routine exchange at 2-3 month intervals. Future exchange should be performed with the benefit of conscious sedation, as this patient is exquisitely sensitive to catheter manipulation.
== END 2020-04-29 12:49 | disposition home or self-care (01) ==
LOC: INTRAD 09:59
PROVIDERS: ATTEND Surgery
DX: K83.1 Obstruction of bile duct (principal); I10 Essential (primary) hypertension; K21.9 Gastro-esophageal reflux disease without esophagitis; E11.9 Type 2 diabetes mellitus without complications; Z90.49 Acquired absence of other specified parts of digestive tract; Z87.440 Personal history of urinary (tract) infections; Z79.82 Long term (current) use of aspirin; Z79.899 Other long term (current) drug therapy; Z98.890 Other specified postprocedural states; Z88.0 Allergy status to penicillin; Z82.49 Family history of ischemic heart disease and other diseases of the circulatory system
CPT/HCPCS: 47536; A4215; C1729; J3490; Q9966